=== PATIENT | female | born 1945 | race Caucasian/White ===

== ENCOUNTER 2019-07-17 16:31 | Outpatient (CLI) | payer MEDICARE, OTHER, SELFPAY ==
--- NOTE | ~2019-07-17 | CT_ITS ---
EXAMINATION:CT chest wo con DATE: 07/17/2019 17:00 INDICATION: Pulmonary nodule. TECHNIQUE: Computed tomography (CT) of the chest was performed without intravenous contrast. Automate d exposure control and iterative reconstruction technique were employed. The dose-length product (DLP ) was 61.46 mGy-cm. COMPARISON: Chest CT 02/19/2019, 02/17/2018 FINDINGS: There is moderate emphysema. There is chronic collapse of right middle lobe. There is mild atelectasis in the lower lobes. There is a 3 mm nodule in right upper lobe, likely benign. There is a 4 mm nodule in left upper lobe, decreased from 7 mm on 02/20/2019, likely benign. Calcified right lalit g nodules and calcified right hilar lymph nodes are consistent with old granulomatous disease. No ple ural effusion. The heart size is normal. There are coronary artery calcifications. No pericardial eff usion. There is ectasia of ascending aorta measuring 4.6 cm without change. The central pulmonary art eries are enlarged, consistent with pulmonary arterial hypertension. There are old healed rib fractur es bilaterally. IMPRESSION: 1. Lung-RADS category 2: Benign appearance or behavior. Continue annual screening with noncontrast lo w-dose chest CT in 12 months. Reviewed, dictated and finalized at location A. OLE FLEXER IMPRESSION: 1. Lung-RADS category 2: Benign appearance or behavior. Continue annual screeni ng with noncontrast low-dose chest CT in 12 months.
== END 2019-07-17 16:32 | disposition home or self-care (01) ==
PROVIDERS: PCP Physician Assistant; Visit Provider Nurse Practitioner Family
DX: R91.1 Solitary pulmonary nodule (principal)
CPT/HCPCS: 71250

== ENCOUNTER 2020-08-28 14:03 | Emergency (ER) | payer MEDICARE, OTHER, SELFPAY ==
--- NOTE | ~2020-08-28 | XR_ITS ---
EXAMINATION: XR chest 2V DATE: 08/28/2020 14:34 INDICATION: Palpitations with irregular heartbeat TECHNIQUE: frontal and lateral views of the chest were obtained. COMPARISON: Chest CT dated 07/17/2019 and chest radiograph dated 08/05/2017 FINDINGS: Mild hyperexpansion of lungs with increased retrosternal clear space consistent with emphysema better appreciated on prior CT . Chronic airspace opacity in the right mid to lower lung zone with bandlike appearance on lateral projection secondary to right middle lobe collapse which is also better apprec iated on prior CT. There is corresponding relative volume loss the right hemithorax with rightward sh ift of the mediastinum and enlarged cardiac silhouette. No other airspace opacities, pulmonary edema, pleural effusion or pneumothorax. Thoracic kyphosis with mild anterior wedging of a few lower thorac ic vertebral bodies. Moderate thoracic spondylosis. Old bilateral rib fractures. IMPRESSION: 1. Emphysema. 2. Chronic right middle lobe collapse. 3. Cardiomegaly. Reviewed, dictated and finalized at location B.
[2020-08-28 14:10] VITALS: BP 171/80; PULSE 98; RESP 21; TEMP 35.9; O2SAT 95
[2020-08-28 14:30] LABS: Basophils Percent Auto 0.3 % (0.2-1.2); Eosinophils Absolute Auto 0.1 K/mm3 (0-0.3); Eosinophils Percent Auto 0.6 % (0-4.4); Hematocrit 44.2 % (37.0-47.0); Hemoglobin 14.8 g/dL (12.0-15.0); Immature Granulocyte Absolute 0.03 K/mm3 (0.00-0.031); Immature Granulocyte Percent A 0.3 % (0-0.5); Lymphocytes Absolute Auto 1.79 K/mm3 (0.9-3.2); Lymphocytes Percent Auto 20.4 % (18.3-44.2); Mean Corpuscular HGB Conc 33.5 g/dl (32-36); Mean Corpuscular Hemoglobin 32.8 pg (26-34); Monocytes Absolute Auto 0.7 K/mm3 (0.1-0.6); Monocytes Percent Auto 7.5 % (2.6-8.5); Neutrophils Absolute Auto 6.2 K/mm3 (1.3-6.7); Neutrophils Percent Auto 70.9 % (45.5-73.1); Platelet Count Result 283 k/mm3 (150-375); Red Blood Count 4.51 M/mm3 (4.2-5.4); Red Cell Distribution Width 13.2 % (11.5-14.5); White Blood Count 8.8 K/mm3 (4.5-10.0)
[2020-08-28 14:39] LABS: Prothrombin Time 13.3 Seconds (11.1-14.7)
[2020-08-28 14:40] LABS: Partial Thromboplastin Time 29.6 SECONDS (22.3-36.8)
[2020-08-28 14:47] LABS: Anion Gap 7 mmol/L (8-16); Blood Urea Nitrogen 12 mg/dL (7-17); Calcium 9.9 mg/dL (8.4-10.2); Carbon Dioxide 32 mmol/L (22-30); Chloride 95 mmol/L (98-107); Estimated CRCL calculation 46 ml/min; Estimated Glomerular Filt Rate > 60; Glucose 118 mg/dL (65-105); Magnesium 1.3 mg/dL (1.6-2.3); Potassium 3.5 mmol/L (3.4-5.0); Sodium 134 mmol/L (137-145)
[2020-08-28 15:19] VITALS: BP 168/84; PULSE 96; RESP 32; O2SAT 95
--- NOTE | 2020-08-28 15:25 | ED.ARRPALP ---
HPI - Arrhythmia/Palpitations General Chief Complaint: Arrhythmia/Palpitations Stated Complaint: Sent from Dr Rosario office Time Seen by Provider: 08/28/20 14:03 History of Present Illness HPI narrative: Patient is a 75-year-old female who presents the ER with an abnormal heart rhythm from her primary care physician's office. Patient has history of PACs but no history of atrial fibrillation which she was found to be in today. Patient has no symptoms of racing of the heart or skipping of heartbeat. She has no chest pain or chest pressure or shortness of breath. She does have some chronic shortness of breath from her COPD but that remains unchanged. She is not oxygen dependent. She is not had any lower extremity edema. Related Data Home Medications Medication Instructions Recorded Confirmed albuterol sulfate 90 mcg/actuation 1 inhalation INHALATION Q4H 07/12/19 07/16/19 aerosol inhaler calcium carb-vit D3-minerals 600 tablet PO 07/12/19 07/16/19 mg calcium-200 unit tablet calcium carbonate 200 mg calcium 200 mg PO BID 07/12/19 07/16/19 (500 mg) chewable tablet dorzolamide 2 % eye drops 1 drop EACH EYE TID 07/12/19 07/16/19 ergocalciferol (vitamin D2) 1,250 1,250 mcg PO WEEKLY 07/12/19 07/16/19 mcg (50,000 unit) capsule loratadine 10 mg capsule 10 mg PO DAILY 07/12/19 07/16/19 lisinopril 20 1 tablet PO DAILY 07/16/19 07/16/19 mg-hydrochlorothiazide 25 mg tablet C,E,zinc,copper [id number] cap PO 08/28/20 [Ocuvite Adult 50 Plus] citalopram mg 08/28/20 magnesium 15 mg PO TID 08/28/20 Allergies Allergy/AdvReac Type Severity Reaction Status Date / Time codeine Allergy Unknown Vomiting Verified 08/28/20 14:58 dorzolamide Allergy Unknown Shortness Verified 08/28/20 14:58 of breat losartan Allergy Unknown unk Verified 08/28/20 14:58 timolol Allergy Unknown Shortness Verified 08/28/20 14:58 of breat Review of Systems Review of Systems: All systems reviewed & are unremarkable except as noted in HPI and below Constitutional: Constitutional: Denies chills, Denies fever(s) and Denies weakness ENT: Denies nasal congestion and Denies sore throat Cardiovascular: Cardiovascular: Denies chest pain, Denies rapid heart rate and Denies radiating jaw, neck or arm pain Respiratory: Respiratory: Denies cough, Denies dyspnea and Denies wheezing Neurologic: Denies dizziness and Denies syncope PMFSH Past Medical History Medical History (Updated 08/28/20 @ 16:16 by Dheeraj Nino MD) Asthma Chronic obstructive pulmonary disease GERD (gastroesophageal reflux disease) Hypertension Surgical History Surgical History (Updated 08/28/20 @ 16:13 by Dheeraj Nino MD) History of hysterectomy Family History Family History (Updated 04/19/18 @ 11:38 by DOCTOR UNKNOWN) Mother Family history of malignant neoplasm of breast in first degree relative Other Family history of arthritis Family history of malignant neoplasm of thyroid Social History Social History (Updated 07/16/19 @ 13:22 by Minal Guerrier) Smoking status: Light tobacco smoker Exam Narrative: Exam Narrative: GENERAL: Well-appearing, well-nourished, and in no acute distress. HEAD: Normocephalic, atraumatic. CHEST: Clear to auscultation. No respiratory distress. HEART: Irregular regular rate and rhythm normal peripheral pulses. ABDOMEN: Soft, nontender, nondistended. EXTREMITIES: Normal range of motion. No edema. SKIN: Warm, dry, no rash. NEURO: Alert and oriented x3. PSYCH: Normal mood and affect. Course Reevaluation(s) Reevaluation #1: Discussed case with Dr. Perales. Recommends oral metoprolol 50 mg daily and and Eliquis 5 mg twice a day. Discussed with pharmacist given patient's timolol allergy and after discussion with patient it is felt that it is safe to give metoprolol. Patient reports she is unsure why that is marked as an allergy and that her pharmacist thought she might have been crazy f
[2020-08-28 15:34] VITALS: PULSE 106
[2020-08-28] MEDS: APIXABAN 5 MG TABLET PO (15:34)
[2020-08-28] MEDS: METOPROLOL SUCCINATE EXT REL 50 MG TABCR PO (15:34)
[2020-08-28 16:10] VITALS: PULSE 74; RESP 23; O2SAT 93
--- NOTE | 2020-08-28 16:19 | ECG_ITS ---
Measurements Intervals [place] Rate: 105 P: HI: 0 QRS: 62 QRSD: 93 T: 77 QT: 327 QTc: 433 Interpretive Statements SINUS RHYTHM ATRIAL TRIPLETS, AND ATRIAL AND VENTRICULAR PREMATURE COMPLEXES MINIMAL Q WAVES- ANTEROLAT/INF LEADS BASELINE ARTIFACT- I, II, III ABNORMAL ECG Electronically Signed On 08-28-2020 16:31:57 CDT by Edwin Perales D.O.
[2020-08-28 16:42] VITALS: BP 168/84; PULSE 88; RESP 24; O2SAT 100
== END 2020-08-28 16:43 | disposition home or self-care (01) ==
PROVIDERS: Emergency Provider Emergency Medicine; PCP Physician Assistant
DX: I48.91 Unspecified atrial fibrillation (principal); K21.9 Gastro-esophageal reflux disease without esophagitis; I10 Essential (primary) hypertension; J43.9 Emphysema, unspecified; I51.7 Cardiomegaly; J98.19 Other pulmonary collapse; I49.3 Ventricular premature depolarization; I49.1 Atrial premature depolarization; R94.31 Abnormal electrocardiogram [ECG] [EKG]
CPT/HCPCS: 36415; 71046; 80048; 83735; 85025; 85610; 85730; 93005; 99283; A9270

== ENCOUNTER 2020-10-07 12:21 | Outpatient (CLI) | payer MEDICARE, OTHER, SELFPAY ==
--- NOTE | ~2020-10-07 | XR_ITS ---
EXAMINATION: XR lumbar spine 2-3V DATE: 10/07/2020 12:51 INDICATION: Generalized low back pain TECHNIQUE: Anteroposterior and lateral views of the lumbar spine, and cone-down lateral view of the l umbosacral junction were obtained. COMPARISON: Lumbar spine MR dated 06/26/2019 FINDINGS: 30 degree dextroscoliosis measured between T12 and L3. 3-4 mm retrolisthesis L1 on L2, L2 on L3 and L 3 on L4. 2 mm anterolisthesis L4 on L5. Vertebral body heights are normal. Severe disc height loss wi th Modic type III sclerotic endplate changes at L1-L2. Moderate disc height loss at T10-T11 and T11-T 12. Mild disc height loss at T12-L1. Moderate to severe lumbar facet osteoarthritis with lower lumbar predominance. Mild bilateral sacroiliac osteoarthritis. Atherosclerotic calcifications at the abdomi nal aorta. IMPRESSION: 1. 30 degrees thoracolumbar dextroscoliosis with severe spondylosis at L1-L2 and moderate spondylosis in the remainder of the lumbar and lower thoracic spine.. Reviewed, dictated and finalized at location A. IMPRESSION: 1. 30 degrees thoracolumbar dextroscoliosis with severe spondylosis at L1-L2 an d moderate spondylosis in the remainder of the lumbar and lower thoracic spine. .
== END 2020-10-07 12:22 | disposition home or self-care (01) ==
PROVIDERS: PCP Physician Assistant; Visit Provider Physician Assistant
DX: M47.815 Spondylosis without myelopathy or radiculopathy, thoracolumbar region (principal); M41.9 Scoliosis, unspecified
CPT/HCPCS: 72100

== ENCOUNTER 2020-10-21 17:26 | Emergency (ER) | payer MEDICARE, OTHER, SELFPAY ==
--- NOTE | ~2020-10-21 | XR_ITS ---
EXAMINATION: XR chest 2V EXAM DATE: 10/21/2020 18:22 INDICATION: Shortness of breath. TECHNIQUE: Frontal and lateral projections of the chest obtained and reviewed. Comparison is made to prior examination from 08/28/2020. FINDINGS: Segmental right middle lobe atelectasis again noted. The lungs are otherwise clear. Some ch ronic hyperinflation. There are no pleural effusions. The cardiomediastinal silhouette is within nor mal limits. There is no pneumothorax suspected. The bones and soft tissues are unremarkable. IMPRESSION: Chronic right middle lobe atelectasis. Reviewed, dictated and finalized at location A.
--- NOTE | 2020-10-21 17:36 | ED.SOB ---
HPI - SOB/Dyspnea General Chief Complaint: Shortness of Breath/Dyspnea Stated Complaint: Shortness of breath Time Seen by Provider: 10/21/20 17:48 Source: patient and RN notes reviewed Mode of arrival: ambulatory Limitations: no limitations History of Present Illness HPI Narrative: 75-year-old female presents the concern for shortness of breath. Reports 3 to 4-day history of increased shortness of breath, bilateral lower leg swelling that has worsened. Reports normally she has bilateral lower leg swelling, however it has increased. Reports approximately 5 days ago she was taken off of her diuretics by her environmental specialist. She denies rhinorrhea, nasal congestion, sore throat, fever, body aches, chills, sweats. Reports shortness of breath at rest increases with activity. MD elicited complaint: shortness of breath Related Data Home Medications Medication Instructions Recorded Confirmed albuterol sulfate 90 mcg/actuation 1 inhalation INHALATION Q4H 07/12/19 10/16/20 aerosol inhaler calcium carb-vit D3-minerals 600 tablet PO 07/12/19 10/16/20 mg calcium-200 unit tablet dorzolamide 2 % eye drops 1 drop EACH EYE TID 07/12/19 10/16/20 ergocalciferol (vitamin D2) 1,250 1,250 mcg PO WEEKLY 07/12/19 10/16/20 mcg (50,000 unit) capsule C,E,zinc,copper [id number] cap PO 08/28/20 10/16/20 [Ocuvite Adult 50 Plus] magnesium carbonate 250 mg capsule mg PO .2-3 daily cap 10/16/20 10/16/20 tiotropium bromide 1.25 2 puff INHALATION DAILY 10/16/20 10/16/20 mcg/actuation mist for inhalation alprazolam 10/21/20 citalopram mg 10/21/20 fluticasone furoate-vilanterol INHALATION 10/21/20 [Breo Ellipta] lisinopril-hydrochlorothiazide tablet 10/21/20 Allergies Allergy/AdvReac Type Severity Reaction Status Date / Time codeine Allergy Unknown Vomiting Verified 10/16/20 14:33 dorzolamide Allergy Unknown Shortness Verified 10/16/20 14:33 of breat losartan Allergy Unknown unk Verified 10/16/20 14:33 timolol Allergy Unknown Shortness Verified 10/16/20 14:33 of bre Review of Systems Review of Systems: Narrative: CONSTITUTIONAL: Denies malaise, chills, sweats, or fever. EYES: Denies visual changes, redness, or discharge. ENT: Denies rhinorrhea, congestion, sinus pain, otalgia or sore throat. CARDIOVASCULAR: Denies chest pain, palpitations. Reports worsening bilateral lower leg edema. RESPIRATORY: Denies cough. Reports dyspnea. GASTROINTESTINAL: Denies abdominal pain, nausea, vomiting, diarrhea SKIN: Denies rash or itching. NEUROLOGIC: Denies headache. All systems reviewed & are unremarkable except as noted in HPI and below PMFSH Past Medical History Medical History Asthma Chronic obstructive pulmonary disease GERD (gastroesophageal reflux disease) Hypertension Surgical History Surgical History History of hysterectomy Family History Family History Mother Family history of malignant neoplasm of breast in first degree relative Other Family history of arthritis Family history of malignant neoplasm of thyroid Social History Social History Smoking status: Current every day smoker Comments At time of signature, agree with nursing past medical, surgical, social and family history. There is no relevant family history pertinent to the presenting complaint Exam Narrative: Exam Narrative: GENERAL: Well-appearing, well-nourished, and in no acute distress. HEAD: Normocephalic EYES: PERRLA, conjunctivae clear ENT: Nares clear. Mucous membranes moist. NECK: Supple. No lymphadenopathy CHEST: Clear to auscultation, breath sounds equal, diminished lower lobes. No wheezing, rhonchi, rales, or stridor. Tachypneic with respiratory effort, not able to speak
[2020-10-21 17:41] VITALS: BP 152/77; PULSE 74; RESP 24; TEMP 36.7; O2SAT 91
--- NOTE | 2020-10-21 17:56 | ECG_ITS ---
Measurements Intervals [place] Rate: 76 P: 72 VA: 164 QRS: 69 QRSD: 98 T: 74 QT: 381 QTc: 430 Interpretive Statements SINUS RHYTHM ATRIAL PREMATURE COMPLEXES BASELINE ARTIFACT- I, II, III, AVR, AVL, AVF, V1-V6 BORDERLINE ECG Electronically Signed On 10-21-2020 18:13:31 CDT by Edwin Perales D.O.
--- NOTE | 2020-10-21 18:19 | PC.NURSE ---
in xray. daughter and pt aware of need for further evaluation by higher level of care.
== END 2020-10-21 18:37 | disposition short-term general hospital (02) ==
PROVIDERS: Emergency Provider Nurse Practitioner; PCP Family Medicine
DX: R06.02 Shortness of breath (principal); J44.9 Chronic obstructive pulmonary disease, unspecified; K21.9 Gastro-esophageal reflux disease without esophagitis; I10 Essential (primary) hypertension; F17.200 Nicotine dependence, unspecified, uncomplicated
CPT/HCPCS: 71046; 93005; 99213; G0463

== ENCOUNTER 2020-10-21 19:01 | Inpatient (IN) | payer MEDICARE, OTHER, SELFPAY ==
--- NOTE | ~2020-10-21 | NM_ITS ---
EXAMINATION: NM gricel stress w perfusion DATE: 10/23/2020 12:05 INDICATION: Dyspnea on exertion. TECHNIQUE: Rest images were obtained following intravenous administration of 10.8 mCi Tc99m tetrofosm in (Myoview). The patient was infused intravenously with Lexiscan (regadenoson). Then, 33 mCi Tc99m t etrofosmin (Myoview) was administered intravenously, and stress images were obtained. Data was recons tructed into short axis and horizontal and vertical long axis SPECT images. Gated SPECT images were a lso obtained. COMPARISON: Chest CT 07/17/2019 FINDINGS: There is a small, mild, fixed perfusion defect involving apical septal segment of left vent ricle, consistent with infarct. No reversible component to suggest ischemia. There is no segmental wa ll motion abnormality. Left ventricular ejection fraction measures 56%. IMPRESSION: 1. 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 2. Normal left ventricular ejection fraction measuring 56%. Reviewed, dictated and finalized at location B. IMPRESSION: 1. 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 2. Normal left ventricular ejection fraction measuring 56%.
[2020-10-21 19:13] VITALS: BP 141/66; PULSE 55; RESP 20; O2SAT 93
--- NOTE | 2020-10-21 19:20 | ECG_ITS ---
Measurements Intervals [place] Rate: 72 P: -1 RI: 164 QRS: 49 QRSD: 102 T: 70 QT: 412 QTc: 453 Interpretive Statements SINUS RHYTHM ATRIAL PREMATURE COMPLEXES BASELINE ARTIFACT- I, II, AVR BORDERLINE ECG Electronically Signed On 10-22-2020 6:47:09 CDT by Edwin Perales D.O.
[2020-10-21 19:36] LABS: Basophils Percent Auto 0.2 % (0.2-1.2); Eosinophils Absolute Auto 0.1 K/mm3 (0-0.3); Eosinophils Percent Auto 1.4 % (0-4.4); Hematocrit 42.7 % (37.0-47.0); Immature Granulocyte Absolute 0.02 K/mm3 (0.00-0.031); Immature Granulocyte Percent A 0.2 % (0-0.5); Lymphocytes Absolute Auto 1.77 K/mm3 (0.9-3.2); Lymphocytes Percent Auto 20.8 % (18.3-44.2); Mean Corpuscular HGB Conc 32.8 g/dl (32-36); Mean Corpuscular Hemoglobin 32.9 pg (26-34); Mean Corpuscular Volume 100.5 fl (80-100); Mean Platelet Volume 9.2 fl (7.4-10.4); Monocytes Absolute Auto 0.6 K/mm3 (0.1-0.6); Monocytes Percent Auto 6.8 % (2.6-8.5); Neutrophils Percent Auto 70.6 % (45.5-73.1); Platelet Count Result 273 k/mm3 (150-375); Red Blood Count 4.25 M/mm3 (4.2-5.4); Red Cell Distribution Width 13.1 % (11.5-14.5); White Blood Count 8.5 K/mm3 (4.5-10.0)
[2020-10-21 19:46] LABS: Anion Gap 3 mmol/L (8-16); Blood Urea Nitrogen 12 mg/dL (7-17); Calcium 9.1 mg/dL (8.4-10.2); Carbon Dioxide 32 mmol/L (22-30); Chloride 96 mmol/L (98-107); Estimated CRCL calculation 36 ml/min; Estimated Glomerular Filt Rate > 60; Glucose 100 mg/dL (65-105); Potassium 3.9 mmol/L (3.4-5.0); Sodium 131 mmol/L (137-145)
[2020-10-21] MEDS: ALBUTEROL SULFATE NEB 2.5 MG/0.5 ML INH 5 MG INHALATION (22:00)
[2020-10-21] MEDS: IPRATROPIUM BR 0.02% INH SOLN 0.5 MG/2.5 ML VIAL INHALATION (22:00)
[2020-10-21 22:04] VITALS: PULSE 59; RESP 16
[2020-10-21 22:12] VITALS: PULSE 73; RESP 16
[2020-10-21 22:14] LABS: Magnesium 1.9 mg/dL (1.6-2.3)
[2020-10-21 22:27] LABS: NT Pro B Type Natriuretic Pept 2740 pg/mL (5-100); Troponin I 0.015 ng/mL (0.000-0.034)
[2020-10-21 22:52] VITALS: BP 138/89; PULSE 78; RESP 20; O2SAT 95
[2020-10-21] MEDS: FUROSEMIDE INJ 40 MG/4 ML VIAL IV PUSH (22:52)
--- NOTE | 2020-10-21 23:18 | ED.GENADULT ---
HPI - General Adult General Chief complaint: Shortness of Breath/Dyspnea Stated complaint: sob Time Seen by Provider: 10/21/20 20:59 History of Present Illness HPI narrative: Patient is a 75-year-old female who presents the emergency department with complaint of shortness of breath. Patient reports that she has been on lisinopril hydrochlorothiazide and her mold loft worker took her off of the hydrochlorothiazide component the patient states that over the last 4 days she has been having increasing shortness of breath worse with exertion to the point now that she cannot walk across the room without getting very short of breath. Patient reports she has history of COPD but states this feels different reports also that she has had a increasing peripheral edema. Patient denies fever denies cough. Patient was seen at urgent care and sent to the emergency department for further evaluation. Related Data Home Medications Medication Instructions Recorded Confirmed albuterol sulfate 90 mcg/actuation 1 inhalation INHALATION Q4H 07/12/19 10/16/20 aerosol inhaler calcium carb-vit D3-minerals 600 tablet PO 07/12/19 10/16/20 mg calcium-200 unit tablet dorzolamide 2 % eye drops 1 drop EACH EYE TID 07/12/19 10/16/20 ergocalciferol (vitamin D2) 1,250 1,250 mcg PO WEEKLY 07/12/19 10/16/20 mcg (50,000 unit) capsule C,E,zinc,copper [id number] cap PO 08/28/20 10/16/20 [Ocuvite Adult 50 Plus] magnesium carbonate 250 mg capsule mg PO .2-3 daily cap 10/16/20 10/16/20 tiotropium bromide 1.25 2 puff INHALATION DAILY 10/16/20 10/16/20 mcg/actuation mist for inhalation alprazolam 10/21/20 citalopram mg 10/21/20 fluticasone furoate-vilanterol INHALATION 10/21/20 [Breo Ellipta] lisinopril-hydrochlorothiazide tablet 10/21/20 Allergies Allergy/AdvReac Type Severity Reaction Status Date / Time codeine Allergy Unknown Vomiting Verified 10/16/20 14:33 dorzolamide Allergy Unknown Shortness Verified 10/16/20 14:33 of breat losartan Allergy Unknown unk Verified 10/16/20 14:33 timolol Allergy Unknown Shortness Verified 10/16/20 14:33 of breat Review of Systems Review of Systems: Narrative: A 10 system review of systems was completed on the patient and is negative except for what is stated in the HPI. Nursing and ancillary documentation was reviewed. PMFSH Past Medical History Medical History Asthma Chronic obstructive pulmonary disease GERD (gastroesophageal reflux disease) Hypertension Surgical History Surgical History History of hysterectomy Family History Family History Mother Family history of malignant neoplasm of breast in first degree relative Other Family history of arthritis Family history of malignant neoplasm of thyroid Social History Social History Smoking status: Current every day smoker Exam Narrative: Exam Narrative: GENERAL: Well-appearing, well-nourished, and in no acute distress. HEAD: Normocephalic, atraumatic. EYES: PERRLA and EOMI. ENT: Nares clear, no rhinorrhea or epistaxis. Mucous membranes moist. NECK: Supple. CHEST: Clear to auscultation. No respiratory distress. HEART: Regular rate and rhythm. No murmur heard. Normal peripheral pulses. ABDOMEN: Soft, nontender, nondistended, normal active bowel sounds. EXTREMITIES: Normal range of motion. +1 edema. SKIN: Warm, dry, no rash. NEURO: No focal deficits. Alert and oriented x3. PSYCH: Normal mood and affect. Course Course Emergency Course: Patient was given an IV dose of Lasix in the emergency department. Patient is still dyspneic with walking to the bathroom. Patient has elevated BNP. Case will be discussed with the hospitalist for admission for observation. Vital Sig
[2020-10-22] VITALS (15 sets, daily range): BP systolic 115–137; BP diastolic 52–68; PULSE 64–76; RESP 16–20; TEMP 36–36.6; O2SAT 92–96; BMI 26.1
--- NOTE | 2020-10-22 | ECHO_ITS ---
Patient Info Name: Raven Sharma Age: 75 years : 1945 Gender: Female Ht: 62 in Wt: 142 lbs BSA: 1.69 m2 HR: 75 bpm BP: 133 / 59 mmHg Technical Quality: Good Exam Date: 10/22/2020 10:06 AM Exam Location: [facility] Pulmonary Exam Room: 258 Patient Status: Inpatient Admit Date: 10/21/2020 Staff Ordering Physician: Hazel Lemus MD Urban Designer: OLLIE Attending Provider: Hazel Lemus MD Referring Physician: Allan CABAN; Exam Type: CA echo doppler color flow Study Info Indications - sob Complete two-dimensional, color flow and Doppler transthoracic echocardiogram is performed with agitated saline. Summary 1. Left ventricular chamber dimension is mildly enlarged. 2. Left ventricular systolic function is mildly reduced, estimated at 45-50%. 3. The left ventricular diastolic function is grade I diastolic dysfunction. 4. E/e' 10 is mildly elevated. 5. Left atrial chamber dimension is moderately enlarged. 6. Agitated saline injection opacified right cardiac chambers and with valsalva there were a few bubbles shunted to left cardiac chambers suggesting small patent foramen ovale. 7. There is mild aortic valve sclerosis. 8. There is mild aortic valve regurgitation. 9. There is mild mitral valve regurgitation. 10. Mild pulmonary hypertension, estimated pulmonary arterial systolic pressure is 43 mmHg. 11. There is mild pulmonic regurgitation. Left Ventricle E/e' 10 is mildly elevated. Left ventricular chamber dimension is mildly enlarged. Left ventricular systolic function is mildly reduced, estimated at 45-50%. The left ventricular diastolic function is grade I diastolic dysfunction. Right Ventricle Right ventricular chamber dimension is normal. Right ventricular systolic function is normal. Left Atria Left atrial chamber dimension is moderately enlarged. Right Atria Right atrial chamber dimension is normal. Atrial Septum Agitated saline injection opacified right cardiac chambers and with valsalva there were a few bubbles shunted to left cardiac chambers suggesting small patent foramen ovale. Suspected patent foramen ovale visualized by agitated saline imaging. Aortic Valve The aortic valve is trileaflet. There is mild aortic valve sclerosis. There is no aortic valve stenosis. There is mild aortic valve regurgitation. Pulmonic Valve There is mild pulmonic regurgitation. Mitral Valve There is no mitral valve stenosis. There is mild mitral valve regurgitation. Tricuspid Valve There is no tricuspid valve regurgitation. Mild pulmonary hypertension, estimated pulmonary arterial systolic pressure is 43 mmHg. Pericardium/Pleural There is no pericardial effusion. Inferior Vena Cava Normal inferior vena cava with >50% collapse upon inspiration consistent with normal right atrial pressure, 5 mmHg. Aorta The aortic root size at the sinus of Valsalva is normal. Left Ventricular Outflow Tract Name Value Normal LVOT 2D LVOT Diameter 2.0 cm LVOT Doppler LVOT Peak Gradient 4 mmHg LVOT Mean Gradient 3 mmHg
--- NOTE | 2020-10-22 00:39 | ADMGEN ---
This patient, Raven Sharma, was admitted to Medical Room 258-. Patient/family oriented to hospital policies and general routines including ID bracelet, bed and alarms, visiting hours, pain management, procedures, bathroom and other care routines, personal items, smoking policy, room service/diet, and visiting hours. Information on how to activate the Rapid Response Team has been discussed. Patient/Family are encouraged to report perceived risks to care and to ask questions if they do not understand what they are told or what they should do.
--- NOTE | 2020-10-22 01:31 | PM.IMHP ---
H&P: HPI History of Present Illness Date/Time: 10/22/20 01:31 Chief Complaint: SHORTNESS OF BREATH Narrative: THIS IS A 75-YEAR-OLD FEMALE WITH PAST MEDICAL HISTORY SIGNIFICANT FOR COPD CHRONIC RIGHT MIDDLE LOBE COLLAPSE HYPERTENSION, SUPRAVENTRICULAR TACHYCARDIA. PATIENT NOTICED WORSENING SHORTNESS OF BREATH FOR THE LAST 3-4 DAYS SHE NOTED IS STARTED SHORTLY AFTER HER HYDROCHLOROTHIAZIDE WAS STOPPED. PATIENT DENIES ANY COUGH ANY SPUTUM PRODUCTION NO CHILLS NO FEVERS NO RIGORS SHE NOTICED ALSO SOME LEG SWELLING PATIENT HAS LEFT EAR HEARING LOSS AND STATES THAT WHEN LAYING FLAT IN THE BED GETS DIZZY SO UNABLE TO TELL IF HAS ORTHOPNEA OR NOT PATIENT DENIES ANY CHEST PAIN OR PALPITATIONS. NO NAUSEA VOMITING OR DIARRHEA. NO DIZZINESS UPON STANDING NO NEAR-SYNCOPE OR SYNCOPE. PRELIMINARY WORKUP WAS SIGNIFICANT FOR SLIGHTLY ELEVATED BNP. CHEMISTRY PANEL SIGNIFICANT FOR SLIGHTLY LOW SODIUM CHLORIDE AND SLIGHTLY ELEVATED BICARB. A CHEST X-RAY DID NOT SHOW ANY INFILTRATES BUT HYPERINFLATION. Review of Systems Review of Systems: Narrative: PATIENT PRESENTED TO THE EMERGENCY ROOM DUE TO WORSENING SHORTNESS OF BREATH AND BILATERAL LOWER EXTREMITY SWELLING FOR THE LAST 3-4 DAYS Constitutional: Constitutional: Denies chills, Denies fatigue, Denies fever(s) and Denies weakness Eyes: Eyes: Denies blurry vision and Denies diplopia ENT: Reports hearing loss Comments: PATIENT HAS HEARING LOSS SINCE SHE WAS 22 YEARS OLD Cardiovascular: Cardiovascular: Denies rapid heart rate, Reports pedal edema, Denies lightheadedness, Denies radiating jaw, neck or arm pain and Reports dyspnea Respiratory: Respiratory: Denies cough and Denies wheezing Gastrointestinal: Gastrointestinal: Denies abdominal pain, Denies constipation, Denies GI cramping and Denies dysphagia Genitourinary: Genitourinary: Denies nocturia and Denies dysuria Musculoskeletal: Musculoskeletal: Denies deformity, Denies arthralgias, Denies joint swelling, Denies limited range of motion and Denies muscle weakness Integumentary/Breasts: Skin/Breast: Denies rash Neurologic: Denies confusion, Denies dizziness, Denies headache(s), Denies lack of coordination and Denies focal weakness Psychiatric: Psychiatric: Denies no additional psychiatric complaints Endocrine: Endocrine: Denies change in body appearance, Denies cold intolerance, Denies deepening of the voice and Denies heat intolerance Hematologic/Lymphatic: Hematologic/Lymphatic: Denies no additional hematologic/lymphatic complaints Allergic/Immunologic: Allergic/Immunologic: Denies no additional allergic/immunologic complaints PMFSH Past Medical History Medical History Asthma Chronic obstructive pulmonary disease GERD (gastroesophageal reflux disease) Hypertension Surgical History Surgical History History of hysterectomy Family History Family History Mother Family history of malignant neoplasm of breast in first degree relative Other Family history of arthritis Family history of malignant neoplasm of thyroid Social History Social History Smoking packs per day: 1 Smoking cigarettes per day: 20.0 Years smoked: 50 Smoking pack-years: 50.00 Smoking status: Current every day smoker Tobacco type: cigarettes Second hand tobacco smoke exposure: Yes Alcohol intake: never Substance use: never Substance use type: does not use Spiritual care concerns: No Meds Home Medications and Allergies Home Medications Medication Instructions Recorded Confirmed Type albuterol sulfate 90 mcg/actuation 1 inhalation INHALATION Q4H 07/12/19 10/22/20 History aerosol inhaler calcium carb-vit D3-minerals 600 1 tablet PO DAILY 07/12/19 10/22/20 History mg calcium-2
[2020-10-22] MEDS: ALBUTEROL SULFATE (*SP) AEROSOL 1 PUFF INHALATION ×4 (04:13→17:26)
[2020-10-22] MEDS: OPTI-GEN TAB 1 TABLET PO (08:30)
[2020-10-22] MEDS: FUROSEMIDE INJ 40 MG/4 ML VIAL IV PUSH (08:31)
[2020-10-22] MEDS: AMIODARONE HCL 200 MG TABLET PO ×2 (08:31→17:24)
[2020-10-22] MEDS: lisinopriL 20 MG TABLET PO (08:31)
--- NOTE | 2020-10-22 14:37 | PM.IMPN ---
Progress Note: A&P Assessment and Plan (1) Acute exacerbation of CHF (congestive heart failure): Qualifiers: Heart failure type: unspecified Qualified Code(s): I50.9 - Heart failure, unspecified Code(s): I50.9 - Heart failure, unspecified Status: Acute Assessment and Plan: Presented with COTTO and elevated BNP. Echo reviewed which showed EF 40-45% with grade I diastolic dysfunction. She appears euvolemic at this time. Appreciate cardiology consultation Continue diuresis with Lasix Monitor intake and output. Weigh daily. Heart healthy diet. (2) PVT (paroxysmal ventricular tachycardia): Code(s): I47.2 - Ventricular tachycardia Status: Acute Assessment and Plan: Rate is controlled at this time. Telemetry reviewed. Continue amiodarone and diltiazem Plan for lexiscan stress test tomorrow morning Appreciate cardiology consultation (3) PAT (paroxysmal atrial tachycardia): Code(s): I47.1 - Supraventricular tachycardia Status: Acute Assessment and Plan: As above. (4) Chronic obstructive pulmonary disease: Qualifiers: COPD type: unspecified COPD Qualified Code(s): J44.9 - Chronic obstructive pulmonary disease, unspecified Code(s): J44.9 - Chronic obstructive pulmonary disease, unspecified Status: Acute Assessment and Plan: Not in acute exacerbation. She is maintaining adequate oxygen saturations on room air. Continue spiriva (5) Tobacco abuse: Code(s): Z72.0 - Tobacco use Status: Acute Assessment and Plan: She smokes approximately 7 cigarettes per day. Declines nicotine patch at this time. Continue to educate on smoking cessation. Subjective Date/time seen: 10/22/20 14:37 Interval history: Date of service: 10/22/2020 Raven Sharma is a 75-year-old female with a history of COPD, asthma, GERD, and hypertension who is seen in follow up for suspected CHF exacerbation. She is feeling well today. Her only complaint at this time is dyspnea with exertion. At rest she denies any shortness of breath. She denies orthopnea or PND. She has been ambulating with assistance and is not having any difficulty. Denies dizziness or lightheadedness. She notes that her lower extremity edema is significantly improved. She denies nausea, vomiting, fever, chills. Her appetite has been good. She reports frequent urination secondary to diuretics but denies dysuria, hematuria. She had a bowel movement this morning. Review of Systems Review of Systems: All systems reviewed & are unremarkable except as noted in HPI and below Exam Narrative: Exam Narrative: Ms. Sharma is a well-nourished, well-appearing 75-year-old female who is lying supine in bed. She appears comfortable and is in NARD. Neuro: awake, alert and oriented x4, speech clear, no focal neuro deficits noted HEENMT: normocephalic, atraumatic, EOMI, sclerae anicteric, moist oral mucosa, tongue midline, nares patent Neck: supple, no lymphadenopathy Respiratory: Diminished breath sounds bilaterally without crackles, rhonchi, or wheezes, nonlabored breathing Cardio: regular rate, regular rhythm with S1-S2 Abdomen: nondistended, normoactive bowel sounds, soft, nontender to palpation, no rigidity or guarding Extremities: Scant pedal edema, no erythema, cyanosis, clubbing, or tenderness to palpation, DP pulses 2+ bilaterally Skin: no rashes or lesions, warm and dry Psych: appropriate mood and affect, judgment and insight intact Objective Data Vital Signs Vital Signs: Vital Signs - 24 hr 10/21/20 19:13 10/21/20 22:04 10/21/20 22:12 Temperature Pulse Rate 55 L 59 L 73 Respiratory Rate 20 16 16 Blood Pressure 141/66 H Pulse Oximetry 93 10/21/20 22:52 10/22/20 00:00 10/22/20 00:46 Temperature 96.8 F L Pulse Rate 78 76 64 Respiratory Rate 20 20 Blood Pressure 138/89 136/68 Pulse Oximetry 95 96
--- NOTE | 2020-10-22 15:19 | PM.CNCAR ---
Assessment and Plan Assessment and plan (1) PVT (paroxysmal ventricular tachycardia): Code(s): I47.2 - Ventricular tachycardia Status: Acute Assessment and Plan: On Amiodarone 200 mg BID for few more days then 200 mg daily. Obtain WiserTogetheriscan myoview stress test. (2) PAT (paroxysmal atrial tachycardia): Code(s): I47.1 - Supraventricular tachycardia Status: Acute (3) Chronic obstructive pulmonary disease: Qualifiers: COPD type: unspecified COPD Qualified Code(s): J44.9 - Chronic obstructive pulmonary disease, unspecified Code(s): J44.9 - Chronic obstructive pulmonary disease, unspecified Status: Acute Assessment and Plan: Nebulizer treatment as per hospitalist. (4) Tobacco abuse: Code(s): Z72.0 - Tobacco use Status: Acute Assessment and Plan: Counseled regarding smoking cessation. (5) Hypertension: Code(s): I10 - Essential (primary) hypertension Status: Acute Assessment and Plan: Stable. 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 Echo shows EF 45-50% and grade I diastolic dysfunction (E/e' 10). Appears to be euvolemic now. Will stop IV lasix. She was maintained on HCTZ previously, will restart that. Continue Mag supplements as her Mag was low. History of Present Illness History of Present Illness Consult date/time: 10/22/20 15:19 Reason for consult: SOB. 75 yr old woman who is my regular cardiology patient and PCP is Dr. Rosario presents to ER for sob. She has a history of hypertension, COPD, had mild TEMO in around 2017 but did not tolerate CPAP or mandibular device (sees Dr. Alarcon). Her daughter is at bedside. States since stopping HCTZ a few days ago she noted more sob and noted edema of legs. She went to Urgent care and given nebulizer treatment with benefit. She was then sent to ER. NTproBNP 2,740. CXR shows atelectasis of RML. EKG shows sinus rhythm with PAC's. Echo shows EF 45-50%, grade I diastolic dysfunction (E/e' 10), mod LAE, small PFO, mild AI/MR. She is limited at walking 1/2 block due to chronic back pain and COPD/COTTO. She smokes 5-7 cigarettes per day and has tried quitting in past extensively. She has chronic issues with constipation and that pushes up into her lungs making it harder to breathe. Denies palpitations, chest pain, orthopnea, PND, edema, dizziness. She has been started on Lasix 40 mg IV BID and nebulizer treatment and states her breathing is better and her edema resolved. Cardiovascular Procedures 10/22/20: Echo: EF 45-50%, grade I diastolic dysfunction (E/e' 10), mod LAE, small PFO, mild AI/R. Electrophysiology:: 10/16/20 EKG: Sinus rhythm with one PVC and one PAC, QTc 425 ms. 08/29/20 25 days event monitor: Sinus rhythm, HR range 56-181 bpm; average 78 bpm; 13% PAC's, 12 episodes of atrial tachycardia, fastest at 154 bpm, longest 35 beats; 4% PVC's, 7 episodes of VT, fastest at 181 bpm and longest 15 beats. 08/28/20 EKG: Sinus rhythm, atrial triplet, PAC's and PVC's. Stress Tests:: 08/28/20 CXR: Emphysema. Chronic RML collapse. Cardiomegaly. Reason For Visit: Acute exacerbation of CHF Review of Systems Constitutional: Constitutional: Reports as per HPI, Denies chills and Denies fever(s) Cardiovascular: Cardiovascular: Reports as per HPI, Denies chest pain, Denies irregular heart rhythm and Reports leg edema Respiratory: Respiratory: Reports as per HPI and Reports dyspnea Gastrointestinal: Gastrointestinal: Reports as per HPI, Denies abdominal pain and Reports constipation Genitourinary: Genitourinary: Reports as per HPI and Denies dysuria Musculoskeletal: Musculoskeletal: Reports as per HPI Neurologic: Reports as p
[2020-10-22] MEDS: ACETAMINOPHEN 325 MG TABLET 650 MG PO (19:14)
[2020-10-23] VITALS (8 sets, daily range): BP systolic 106–132; BP diastolic 52–55; PULSE 61–75; RESP 16–18; TEMP 36.6; O2SAT 93–94
[2020-10-23 05:56] LABS: Anion Gap 0 mmol/L (8-16); Blood Urea Nitrogen 15 mg/dL (7-17); Calcium 9.1 mg/dL (8.4-10.2); Carbon Dioxide 35 mmol/L (22-30); Chloride 99 mmol/L (98-107); Estimated CRCL calculation 41 ml/min; Estimated Glomerular Filt Rate > 60; Glucose 86 mg/dL (65-105); Potassium 3.8 mmol/L (3.4-5.0); Sodium 134 mmol/L (137-145)
[2020-10-23] MEDS: AMIODARONE HCL 200 MG TABLET PO ×2 (08:00→16:34)
[2020-10-23] MEDS: hydroCHLOROthiazide 25 MG TABLET PO (08:01)
[2020-10-23] MEDS: DORZOLAMIDE HCL 2% OPHTH DROPS 1 DROP EACH EYE ×3 (08:01→16:34)
[2020-10-23] MEDS: MAGNESIUM OXIDE 400 MG TABLET PO (08:02)
[2020-10-23] MEDS: lisinopriL 20 MG TABLET PO (08:02)
[2020-10-23] MEDS: OPTI-GEN TAB 1 TABLET PO (08:02)
--- NOTE | 2020-10-23 11:29 | PC.NURSE ---
[employer] spoke with Dr. Perales who gave orders to resume heart healthy diet.
--- NOTE | 2020-10-23 12:57 | PM.PNCARD ---
Progress Note: A&P Assessment and Plan (1) PVT (paroxysmal ventricular tachycardia): Code(s): I47.2 - Ventricular tachycardia Status: Acute Assessment and Plan: On Amiodarone 200 mg BID for few more days then 200 mg daily. Lexiscan myoview stress test today is negative for ischemia. (2) PAT (paroxysmal atrial tachycardia): Code(s): I47.1 - Supraventricular tachycardia Status: Acute (3) Chronic obstructive pulmonary disease: Qualifiers: COPD type: unspecified COPD Qualified Code(s): J44.9 - Chronic obstructive pulmonary disease, unspecified Code(s): J44.9 - Chronic obstructive pulmonary disease, unspecified Status: Acute Assessment and Plan: Nebulizer treatment as per hospitalist. (4) Tobacco abuse: Code(s): Z72.0 - Tobacco use Status: Acute Assessment and Plan: Counseled regarding smoking cessation. (5) Hypertension: Code(s): I10 - Essential (primary) hypertension Status: Acute Assessment and Plan: Stable. 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 Echo shows EF 45-50% and grade I diastolic dysfunction (E/e' 10). Appears to be euvolemic now. Stopped IV lasix. Resumed HCTZ previously. Continue Mag supplements as her Mag was low. May d/c home from cardiology standpoint and f/u with me in 2 weeks. Subjective Date/time seen: 10/23/20 12:57 Denies chest pain. Has intermittent sob. Exam Const: General: cooperative, healthy appearing and comfortable Resp: Auscultation: no crackles, no rales, no rhonchi, no wheezes and diminished lung sounds Cardio: Jugular venous distension: no JVD Rate: regular rate Rhythm: regular rhythm Heart sounds: no murmurs Peripheral pulses: dorsalis pedis present GI: GI Palp: No abdominal tenderness and Yes Soft to palpation Neuro: General: oriented to person, oriented to place and oriented to time Extrem: Right lower extremity: no edema Left lower extremity: no edema Objective Data Vital Signs Vital Signs: Vital Signs - 24 hr 10/22/20 14:00 10/22/20 16:00 10/22/20 17:24 Temperature 97.1 F L Pulse Rate 69 66 71 Respiratory Rate 20 Blood Pressure 115/52 L Pulse Oximetry 92 10/22/20 20:00 10/22/20 21:33 10/22/20 22:00 Temperature 97.9 F Pulse Rate 72 72 69 Respiratory Rate 20 16 Blood Pressure 137/59 L Pulse Oximetry 92 94 10/23/20 00:00 10/23/20 04:00 10/23/20 06:00 Temperature 97.9 F Pulse Rate 61 63 67 Respiratory Rate 16 Blood Pressure 132/55 L Pulse Oximetry 94 10/23/20 08:00 10/23/20 12:00 Temperature Pulse Rate 69 75 Respiratory Rate Blood Pressure Pulse Oximetry Intake/Output Intake/Output: Intake & Output 10/20/20 10/21/20 10/22/20 10/23/20 23:59 23:59 23:59 23:59 Intake Total 1440 Output Total 1400 900 Balance 40 -900 Meds/Results Medications: Active Medications Generic Name Dose Route Start Last Admin Trade Name Freq PRN Reason Stop Dose Admin Acetaminophen 650 mg 10/22/20 17:35 10/22/20 19:14 Acetaminophen 325 Mg Tablet PO 650 mg Q4H PRN Administration Mild Pain (1-3) or Fever Albuterol 1 puff 10/22/20 17:38 Albuterol Sulfate (*Sp) Aerosol 1 Puff INHALATION Q4HRT PRN Shortness Of Breath Amiodarone HCl 200 mg 10/22/20 08:00 10/23/20 08:00 Amiodarone Hcl 200 Mg Tablet PO 200 mg BIDWM MASSIMO Administration Budesonide/Formoterol Fumarate 2 puff 10/22/20 08:00 10/23/20 08:00 Budesonide/Form 160-4.5 Mcg (*Sp) INHALATION 2 puff Q12HRT MASSIMO Administration Calcium Carbonate 500 mg 10/22/20 09:00 10/23/20 08:00 Calcium/Vitamin D 500 Mg Tablet PO
[2020-10-23] MEDS: ACETAMINOPHEN 325 MG TABLET 650 MG PO (14:44)
--- NOTE | 2020-10-23 15:29 | EST_ITS ---
Patient Info Name: Raven Sharma Age: 75 years : 1945 Gender: Female Ht: 62 in Wt: 142 lbs BSA: 1.69 m2 Exam Date: 10/23/2020 9:47 AM Patient Status: Inpatient Admit Date: 10/22/2020 Staff Ordering Physician: Edwin Perales DO Attending Provider: Miri Miller PA-C Exercise Technologist: Libby Matta RDCS Exercise Physician: Edwin Perales DO Exam Type: CA stress gricel w NM Study Info Indications R06.02 - Shortness of breath A regadenoson stress test was performed. Summary 1. 1. Negative lexiscan stress test for ischemic ST changes by ECG criteria. 2. 2. Baseline hypertension. 3. 3. Nuclear scan to follow and will be reported separately. Please correlate with it. 4. 4. Patient informed of the above results. Protocol: Lexiscan Stress ECG Details Stage: REST Duration (min): 17 min : 28 sec HR (bpm): 74 SBP (mmHg): 155 DBP (mmHg): 87 Stage: REST Duration (min): 22 min : 34 sec HR (bpm): 75 SBP (mmHg): 155 DBP (mmHg): 87 Stage: STAGE 1 Duration (min): 0 min : 59 sec HR (bpm): 76 SBP (mmHg): 155 DBP (mmHg): 87 Stage: RECOVERY Duration (min): 1 min : 0 sec HR (bpm): 85 SBP (mmHg): 155 DBP (mmHg): 87 Stage: RECOVERY Duration (min): 2 min : 0 sec HR (bpm): 84 SBP (mmHg): 155 DBP (mmHg): 87 Stage: RECOVERY Duration (min): 3 min : 0 sec HR (bpm): 86 SBP (mmHg): 137 DBP (mmHg): 84 Stage: RECOVERY Duration (min): 4 min : 0 sec HR (bpm): 85 SBP (mmHg): 141 DBP (mmHg): 82 Stage: RECOVERY Duration (min): 4 min : 50 sec HR (bpm): 93 SBP (mmHg): 144 DBP (mmHg): 82 Rest HR: 75 bpm Peak HR: 92 bpm Rest Sys BP: 155 mmHg Peak Sys BP: 144 mmHg Max Pred HR: 143 bpm % Max Pred HR: 64 % Target HR: 122 bpm Max RPP: 13,248 bpm*mmHg Termination Reason: Completed protocol Cardiac Symptoms: Shortness of breath, Headache Total Time: 1 min : 0 sec Rest Her BP: 87 mmHg Peak Her BP: 82 mmHg Total Dose: 0.4 mg Resting ECG Sinus rhythm with PAC's. Stress ECG No ST changes. Arrhythmias None. Report Signatures
--- NOTE | 2020-10-23 16:13 | PM.DS ---
DS: Admitting Diagnosis Admitting Diagnosis Admitting Diagnosis: CHF exacerbation DS: Discharge Diagnosis Discharge Diagnosis (1) Acute exacerbation of CHF (congestive heart failure): Qualifiers: Heart failure type: combined systolic and diastolic Qualified Code(s): I50.43 - Acute on chronic combined systolic (congestive) and diastolic (congestive) heart failure Code(s): I50.9 - Heart failure, unspecified Status: Acute Assessment and Plan: Presented with COTTO and elevated BNP. Echo reviewed which showed EF 40-45% with grade I diastolic dysfunction. She was seen in consultation by cardiology and diuresed with Lasix. She became euvolemic. She was restarted on hydrochlorothiazide to continue as an outpatient per cardiology recommendations with 2 week outpatient follow up. CHF education provided. (2) PVT (paroxysmal ventricular tachycardia): Code(s): I47.2 - Ventricular tachycardia Status: Acute Assessment and Plan: Rate was controlled. Seen by cardiology. Lexiscan stress test reviewed and was negative for ischemia. Continue amiodarone. (3) PAT (paroxysmal atrial tachycardia): Code(s): I47.1 - Supraventricular tachycardia Status: Acute Assessment and Plan: As above. (4) Chronic obstructive pulmonary disease: Qualifiers: COPD type: unspecified COPD Qualified Code(s): J44.9 - Chronic obstructive pulmonary disease, unspecified Code(s): J44.9 - Chronic obstructive pulmonary disease, unspecified Status: Acute Assessment and Plan: Not in acute exacerbation. She maintained adequate oxygen saturations on room air. Continue spiriva (5) Tobacco abuse: Code(s): Z72.0 - Tobacco use Status: Acute Assessment and Plan: She smokes approximately 7 cigarettes per day. She was educated on smoking cessation and verbalized understanding. She is motivated to quit smoking. DS: Summary Hospital Course Reason for hospitalization: Dyspnea Hospital Course: Date of admission: 10/21/2020 Date of discharge: 10/23/2020 Raven Sharma is a 75-year-old female with a history of COPD, asthma, GERD, and hypertension who presented to the emergency department on 10/21/2020 with complaints of shortness of breath. She had been seen at the urgent care previously and was referred to the ED. Have been ongoing for approximately 4 days with increased lower extremity edema. Upon presentation to the emergency department, her vital signs were stable, she was afebrile, CBC unremarkable, chloride was slightly decrease in CO2 slightly elevated with additional electrolytes stable, BNP 2740, troponin 0.015, magnesium 1.9, CXR showed chronic right middle lobe atelectasis. She was admitted to the hospitalist service for further evaluation management was seen in consultation by cardiology. Please see above for further details. She underwent stress testing which was negative. Her dyspnea improved significantly and she was feeling much better. Given her overall improvement, she was determined to no longer require inpatient care and was felt to be stable for discharge. We discussed worrisome signs and symptoms for which to return and she was educated on her medications. 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 She was discharged in hemodynamically stable condition on 10/23/2020. Status at Discharge Functional status at discharge: independent ambulation Overall status at discharge: patient is progressing back to baseline Time Spent with Patient Time attestation: Total time spent providing and/or coordinating discharge services: 45 minutes Exam Narrative: Exam Narrative: Ms. Sharma is a well-nourished, well-appearing 75-year-old female who is sitting in a chair by the bedside. She appears comfortable and is in NARD. Neuro: awake, alert and oriented x4, speech clear, no focal neuro deficits noted HEENMT: normocephalic, atraum
== END 2020-10-23 17:38 | disposition home or self-care (01) | DRG 292 ==
LOC: ANHED 23:21 → ANH2MED 23:52
PROVIDERS: Physician Assistant; Admitting Provider Internal Medicine; Emergency Provider Emergency Medicine; PCP Family Medicine; Visit Provider Internal Medicine
DX: I11.0 Hypertensive heart disease with heart failure (principal); I47.2 Ventricular tachycardia; I47.1 Supraventricular tachycardia; I50.43 Acute on chronic combined systolic (congestive) and diastolic (congestive) heart failure; G47.33 Obstructive sleep apnea (adult) (pediatric); J44.9 Chronic obstructive pulmonary disease, unspecified; F17.210 Nicotine dependence, cigarettes, uncomplicated; K21.9 Gastro-esophageal reflux disease without esophagitis; Z79.899 Other long term (current) drug therapy
CPT/HCPCS: 36415; 71046; 78452; 80048; 83735; 83880; 84484; 85025; 93005; 93017; 93306; 94640; 96374; 96375; 96376; 99213; 99285; A9270; A9502; G0378; G0463; J1940; J2785

== ENCOUNTER 2020-11-13 18:28 | Inpatient (IN) | payer MEDICARE, OTHER, SELFPAY ==
--- NOTE | ~2020-11-13 | XR_ITS ---
XR chest 2V DATE: 11/13/2020 19:43 INDICATION: Shortness of breath. Low oxygen saturation. History of asthma and hypertension. TECHNIQUE: AP and lateral views COMPARISON: 10/21/2020 PA and lateral chest FINDINGS: Cardiomegaly. Aortic ectasia, calcification, tortuosity. Prominent central pulmonary arteries suggesting pulmonary hypertension. Lateral hyperinflation sugges ting COPD. Chronic middle lobe atelectasis. No active infiltrate or consolidation, pleural effusion or pulmonary vascular congestion or pneumotho rax. Diffuse osteopenia. Probable left calcific rotator cuff tendinitis. IMPRESSION: Cardiomegaly, aortic atherosclerosis Chronic middle lobe atelectasis. Bilateral hyperinflation and prominent central pulmonary arteries, suggesting COPD and pulmonary hype rtension Reviewed, dictated and finalized at location [facility]. IMPRESSION: Cardiomegaly, aortic atherosclerosis Chronic middle lobe atelectasis. Bilateral hyperinflation and prominent central pulmonary arteries, suggesting C OPD and pulmonary hypertension
--- NOTE | ~2020-11-13 | XR_ITS ---
XR abdomen NG/feed tube insert DATE: 11/13/2020 23:31 INDICATION: NG tube placement TECHNIQUE: Portable upright AP view on 11/30/2020 at 2333 hours COMPARISON: 11/13/[address] abdomen pelvis FINDINGS: A nasogastric tube is present, the distal tip overlying the body of the stomach. IMPRESSION: NG tube in stomach Reviewed, dictated and finalized at [facility]. Reviewed, dictated and finalized at [facility]. IMPRESSION: NG tube in stomach
--- NOTE | ~2020-11-13 | CT_ITS ---
EXAMINATION: CT abdomen pelvis wo con DATE: 11/13/2020 21:23 INDICATION: Abdominal pain and vomiting. Elevated serum creatinine. TECHNIQUE: Computed tomography (CT) of the abdomen and pelvis was performed without intravenous contr ast. Automated exposure control and iterative reconstruction technique were employed. Exam dose: 350 .62 mGy-cm total exam DLP. COMPARISON: None. FINDINGS: There is focal middle lobe atelectasis. There is mild discoid atelectasis and/or scarring a t the lung bases bilaterally. Heart size is within normal range. Coronary artery calcifications. No pericardial or pleural effusion . There is an enlarged fluid distended distal esophagus and small sliding hiatal hernia and prominent f luid distention and air-fluid level of the stomach. There is dilatation and extensive air-fluid level s throughout all but the very distal small bowel suggesting distal small bowel obstruction. Diverticulosis of the left colon; no CT evidence of diverticulitis. 3.1 cm left hepatic cyst. The liver, gallbladder, bile ducts, spleen, pancreas and pancreatic duct ar e otherwise unremarkable. Unremarkable adrenal glands. No renal mass lesion. Bilateral perinephric stranding, greater on the left. No ureteral calculus or h ydroureteronephrosis is evident. The urinary bladder is relatively evacuated, otherwise unremarkable. Moderately prominent right inguinal hernia containing fat and some fluid. There is extensive calcification of the abdominal aorta as well as celiac, superior mesenteric and pr ominent bilateral renal artery calcifications. No intraperitoneal or retroperitoneal or pelvic mass l esion or adenopathy or ascites. These osteopenia. Degenerative changes of the thoracic and particularly lumbar spine including partic ularly severe degenerative disc disease and mild retrolisthesis at L1-2 and prominent degenerative ch armando at the apophyseal joints with associated grade 1 anterolisthesis at L4-5. IMPRESSION: Distal small bowel obstruction Focal middle lobe atelectasis Diverticulosis of left colon; no CT evidence of diverticulitis 3.1 cm left hepatic cyst Reviewed, dictated and finalized at [facility]. Reviewed, dictated and finalized at location [facility].
[2020-11-13 19:12] VITALS: BP 105/91; PULSE 82; RESP 17; TEMP 36.5; O2SAT 86
--- NOTE | 2020-11-13 19:24 | ECG_ITS ---
Measurements Intervals [place] Rate: 85 P: 97 ND: 141 QRS: 41 QRSD: 100 T: 70 QT: 403 QTc: 481 Interpretive Statements SINUS RHYTHM VENTRICULAR PREMATURE COMPLEX AND SUPRAVENTRICULAR TRIGEMINY VOLTAGE CRITERIA FOR LVH ABNORMAL ECG Electronically Signed On 11-13-2020 21:29:21 CDT by Edwin Perales D.O.
[2020-11-13 19:40] LABS: Basophils Absolute Auto 0.1 K/mm3 (0.0-0.1); Basophils Percent Auto 0.4 % (0.2-1.2); Eosinophils Percent Auto 0.1 % (0-4.4); Hematocrit 49.1 % (37.0-47.0); Hemoglobin 16.1 g/dL (12.0-15.0); Immature Granulocyte Absolute 0.03 K/mm3 (0.00-0.031); Immature Granulocyte Percent A 0.2 % (0-0.5); Lymphocytes Absolute Auto 0.35 K/mm3 (0.9-3.2); Lymphocytes Percent Auto 2.2 % (18.3-44.2); Mean Corpuscular HGB Conc 32.8 g/dl (32-36); Mean Corpuscular Hemoglobin 32.4 pg (26-34); Mean Corpuscular Volume 98.8 fl (80-100); Mean Platelet Volume 8.8 fl (7.4-10.4); Monocytes Absolute Auto 1.1 K/mm3 (0.1-0.6); Neutrophils Absolute Auto 14.5 K/mm3 (1.3-6.7); Neutrophils Percent Auto 90.1 % (45.5-73.1); Platelet Count Result 341 k/mm3 (150-375); Red Blood Count 4.97 M/mm3 (4.2-5.4); Red Cell Distribution Width 12.8 % (11.5-14.5); White Blood Count 16.1 K/mm3 (4.5-10.0)
--- NOTE | 2020-11-13 19:40 | PC.NURSE ---
Added on lipase
[2020-11-13 19:51] LABS: Anion Gap 12 mmol/L (8-16); Blood Urea Nitrogen 26 mg/dL (7-17); Calcium 10.1 mg/dL (8.4-10.2); Carbon Dioxide 28 mmol/L (22-30); Chloride 91 mmol/L (98-107); Estimated Glomerular Filt Rate 26; Glucose 162 mg/dL (65-105); Lipase 149 U/L (23-300); Potassium 4.8 mmol/L (3.4-5.0); Sodium 131 mmol/L (137-145)
[2020-11-13] MEDS: SODIUM CHLORIDE 0.9% IV 1,000 ML 999 ML IV CONT (20:59)
[2020-11-13 21:00] VITALS: BP 104/68; PULSE 80; RESP 28; O2SAT 96
[2020-11-13 22:48] VITALS: BP 104/63; PULSE 78; RESP 93; O2SAT 30
--- NOTE | 2020-11-13 22:49 | ED.GENADULT ---
HPI - General Adult General Chief complaint: Abdominal Pain Stated complaint: sob and abd pain with n/v Time Seen by Provider: 11/13/20 20:42 History of Present Illness HPI narrative: Patient 75-year-old female presents emergency department with chief complaint of abdominal pain. Patient reports she been having nausea and vomiting. The patient reports has not been able to tolerate p.o. intake states she feels extremely dry. The patient states she has history of atrial fibrillation and was on amiodarone but it was stopped due to increasing shortness of breath. Patient states that the discomfort has not improved by anything reports that she has never had a bowel obstruction. Patient states symptoms are not improved by anything. Related Data Home Medications Medication Instructions Recorded Confirmed albuterol sulfate 90 mcg/actuation 1 inhalation INHALATION Q4H 07/12/19 11/07/20 aerosol inhaler calcium carb-vit D3-minerals 600 1 tablet PO DAILY 07/12/19 11/07/20 mg calcium-200 unit tablet dorzolamide 2 % eye drops 1 drop EACH EYE TID 07/12/19 11/07/20 ergocalciferol (vitamin D2) 1,250 1,250 mcg PO WEEKLY 07/12/19 11/07/20 mcg (50,000 unit) capsule Ocuvite Adult 50 Plus 1 cap PO DAILY 08/28/20 11/07/20 magnesium carbonate 250 mg capsule 250 mg PO .2-3 daily cap 10/16/20 11/07/20 tiotropium bromide 1.25 2 puff INHALATION DAILY 10/16/20 11/07/20 mcg/actuation mist for inhalation Breo Ellipta 100 inh INHALATION DAILY 10/21/20 11/07/20 lisinopril 20 mg PO BID 10/22/20 11/07/20 Allergies Allergy/AdvReac Type Severity Reaction Status Date / Time codeine Allergy Unknown Vomiting Verified 11/07/20 13:43 losartan Allergy Unknown unk Verified 11/07/20 13:43 timolol Allergy Unknown Shortness Verified 11/07/20 13:43 of breat amoxicillin [From Augmentin] AdvReac Nausea and Verified 11/07/20 13:43 Vomiting clavulanic acid AdvReac Nausea and Verified 11/07/20 13:43 [From Augmentin] Vomiting Review of Systems Review of Systems: Narrative: A 10 system review of systems was completed on the patient and is negative except for what is stated in the HPI. Nursing and ancillary documentation was reviewed. [facility] Past Medical History Medical History Asthma Chronic obstructive pulmonary disease GERD (gastroesophageal reflux disease) Hypertension Surgical History Surgical History History of hysterectomy Family History Family History Mother Family history of malignant neoplasm of breast in first degree relative Other Family history of arthritis Family history of malignant neoplasm of thyroid Social History Social History Smoking packs per day: 1 Smoking cigarettes per day: 20.0 Years smoked: 50 Smoking pack-years: 50.00 Smoking status: Current every day smoker Tobacco type: cigarettes Second hand tobacco smoke exposure: Yes Alcohol intake: never Substance use: never Substance use type: does not use Gender identity (if verbalized by the patient): Female Spiritual care concerns: No Exam Narrative: Exam Narrative: GENERAL: Well-appearing, well-nourished, and in no acute distress. HEAD: Normocephalic, atraumatic. EYES: PERRLA and EOMI. ENT: Nares clear, no rhinorrhea or epistaxis. Mucous membranes moist. NECK: Supple. CHEST: Clear to auscultation. No respiratory distress. HEART: Regular rate and rhythm. No murmur heard. Normal peripheral pulses. ABDOMEN: Soft, diffuse tenderness to palpation, abdomen appears distended, . EXTREMITIES: Normal range of motion. No edema. SKIN: Warm, dry, no rash. NEURO: No focal deficits. Alert and oriented x3. PSYCH: Normal mood and affect. Course Course Emergency Course: CT scan
[2020-11-13 23:33] VITALS: BP 126/60; PULSE 78; RESP 20; O2SAT 93
[2020-11-14] VITALS (25 sets, daily range): BP systolic 105–142; BP diastolic 50–77; PULSE 16–88; RESP 14–98; TEMP 36.1–37.3; O2SAT 70–98; BMI 24.5
--- NOTE | 2020-11-14 00:59 | ADMGEN ---
This patient, Raven Sharma, was admitted to Medical Room 248-. Patient/family oriented to hospital policies and general routines including ID bracelet, bed and alarms, visiting hours, pain management, procedures, bathroom and other care routines, personal items, smoking policy, room service/diet, and visiting hours. Information on how to activate the Rapid Response Team has been discussed. Patient/Family are encouraged to report perceived risks to care and to ask questions if they do not understand what they are told or what they should do.
[2020-11-14] MEDS: SODIUM CHLORIDE 0.9% IV 1,000 ML 125 ML IV CONT (01:49)
--- NOTE | 2020-11-14 01:49 | PM.IMHP ---
H&P: HPI History of Present Illness Date/Time: 11/14/20 01:49 Chief Complaint: nausea, vomiting abdominal pain Narrative: Patient 75-year-old female presents emergency department with chief complaint of abdominal pain and nausea, vomitign. The patient reports has not been able to tolerate p.o. intake states she feels extremely dry. She reports having bowel problems for a long time with constipation and diarrhea intemrittently. she was most recently having some diarrhea. her last bm was yesterday in the afternoon. She has not had any since then and feels bloated in her abdomen along with nausea and vomting. she came to the ED for evaluation and was found to ahve distal small bowel obstruction. She had NG tube placed with release of a canister full of bilouos output. she is admitted for further evaluation. general srugery has been consulted. she had hx of hysterectomy in the past. she has hx of chf and also ventricular tachycardia for whcih she was placed on amiodarone, but now it has been stopped since her recent cardiology follow up wtih Dr. Perales as it was supected to have lead to increasing shortness of breath. she has never had bowel obstruction in the apst. Review of Systems Review of Systems: Narrative: - CONSTITUTIONAL: Denies weight loss, fever and chills. - HEENT: Denies changes in vision and hearing - RESPIRATORY: Denies SOB and cough. - CV: Denies palpitations and CP. - GI: rpeorts abdominal pain, nausea, vomiting and diarrhea. - : Denies dysuria and urinary frequency. - MSK: Denies myalgia and joint pain. - SKIN: Denies rash and pruritus. - NEUROLOGICAL: Denies headache and syncope. - PSYCHIATRIC: Denies recent changes in mood. Denies anxiety and depression. All systems reviewed & are unremarkable except as noted in HPI and below Constitutional: Constitutional: Reports fatigue and Reports weakness Neurologic: Reports weakness Endocrine: Endocrine: Reports fatigue PMF Past Medical History Medical History Asthma Chronic obstructive pulmonary disease GERD (gastroesophageal reflux disease) Hypertension Surgical History Surgical History History of hysterectomy Family History Family History Mother Family history of malignant neoplasm of breast in first degree relative Other Family history of arthritis Family history of malignant neoplasm of thyroid Social History Social History Smoking packs per day: 1 Smoking cigarettes per day: 20.0 Years smoked: 50 Smoking pack-years: 50.00 Smoking status: Current every day smoker Tobacco type: cigarettes Second hand tobacco smoke exposure: Yes Alcohol intake: never Substance use: never Substance use type: does not use Gender identity (if verbalized by the patient): Female Spiritual care concerns: No Meds Home Medications and Allergies Home Medications Medication Instructions Recorded Confirmed Type albuterol sulfate 90 mcg/actuation 1 inhalation INHALATION Q4H PRN 07/12/19 11/14/20 History aerosol inhaler calcium carb-vit D3-minerals 600 1 tablet PO DAILY 07/12/19 11/14/20 History mg calcium-200 unit tablet dorzolamide 2 % eye drops 1 drop EACH EYE TID 07/12/19 11/14/20 History ergocalciferol (vitamin D2) 1,250 1,250 mcg PO WEEKLY 07/12/19 11/14/20 History mcg (50,000 unit) capsule Ocuvite Adult 50 Plus 1 cap PO DAILY 08/28/20 11/14/20 History diltiazem HCl 120 mg capsule,24 120 mg PO DAILY #30 cap 09/26/20 11/14/20 Rx hr,extended release magnesium carbonate 250 mg capsule 250 mg PO TID cap 10/16/20 11/14/20 History Breo Ellipta 100 inh INHALATION DAILY 10/21/20 11/14/20 History lisinopril 20 mg PO DAILY 10/22/20 11/14/20 History hydrochlorothiazide
[2020-11-14 05:33] LABS: Basophils Percent Auto 0.3 % (0.2-1.2); Eosinophils Absolute Auto 0.1 K/mm3 (0-0.3); Eosinophils Percent Auto 0.5 % (0-4.4); Hematocrit 44.3 % (37.0-47.0); Hemoglobin 14.7 g/dL (12.0-15.0); Immature Granulocyte Absolute 0.06 K/mm3 (0.00-0.031); Immature Granulocyte Percent A 0.5 % (0-0.5); Lymphocytes Absolute Auto 0.55 K/mm3 (0.9-3.2); Lymphocytes Percent Auto 4.1 % (18.3-44.2); Mean Corpuscular HGB Conc 33.2 g/dl (32-36); Mean Corpuscular Hemoglobin 33.1 pg (26-34); Mean Corpuscular Volume 99.8 fl (80-100); Mean Platelet Volume 9.6 fl (7.4-10.4); Monocytes Absolute Auto 1.2 K/mm3 (0.1-0.6); Monocytes Percent Auto 9.2 % (2.6-8.5); Neutrophils Absolute Auto 11.4 K/mm3 (1.3-6.7); Neutrophils Percent Auto 85.4 % (45.5-73.1); Platelet Count Result 303 k/mm3 (150-375); Red Blood Count 4.44 M/mm3 (4.2-5.4); Red Cell Distribution Width 12.9 % (11.5-14.5); White Blood Count 13.3 K/mm3 (4.5-10.0)
[2020-11-14 05:54] LABS: Anion Gap 11 mmol/L (8-16); Blood Urea Nitrogen 40 mg/dL (7-17); Calcium 9.4 mg/dL (8.4-10.2); Carbon Dioxide 31 mmol/L (22-30); Chloride 91 mmol/L (98-107); Estimated CRCL calculation 14 ml/min; Estimated Glomerular Filt Rate 20; Glucose 118 mg/dL (65-105); Potassium 4.7 mmol/L (3.4-5.0); Sodium 133 mmol/L (137-145)
[2020-11-14] MEDS: HEPARIN SODIUM 5,000 UNITS/ML VIAL 5000 UNITS SUB-Q ×2 (09:07→20:52)
[2020-11-14] MEDS: DORZOLAMIDE HCL 2% OPHTH DROPS 1 DROP EACH EYE ×2 (09:07→12:51)
[2020-11-14] MEDS: SODIUM CHLORIDE 0.9% IV 1,000 ML 80 ML IV CONT ×2 (10:02→23:41)
[2020-11-14] MEDS: PHENOL/SOD PHENO SPRAY CHERRY (*BKC) 1 SPRAY MUCOUS MEM (13:54)
--- NOTE | 2020-11-14 14:45 | P.PNIM_ITS ---
Progress Note: A&P Assessment and Plan (1) Small bowel obstruction: Code(s): K56.609 - Unspecified intestinal obstruction, unspecified as to partial versus complete obstruction Status: Acute Assessment and Plan: * Ct Shows: Distal small bowel obstruction * Patient came in for nausea and vomiting * bowel rest * NG decompression * NG to intermittent suction-Brown secretions * general surgery consult thank you * Going to surgery today * NS at 80ml/hr * pain control-Morphine 4mg IV Q2hr PRN * Zofran 4mg IV Q4hr * Phenol 1 spray PRN for throat discomfort (2) Hypertension: Code(s): I10 - Essential (primary) hypertension Status: Acute Assessment and Plan: * Blood pressure 123/53 * Trend blood pressure * Hold PO Lisinopril 20mg PO, hydrochlorothiazide 25 mg p.o. daily, * Will add hydralizine 10mg PRN with parameters (3) PVT (paroxysmal ventricular tachycardia): Code(s): I47.2 - Ventricular tachycardia Status: Acute Assessment and Plan: * Currently SR in 70s * cardizem 120mg PO on hold * Will add an agent if patient becomes tachycardic or goes into an arrhythmia (4) PAT (paroxysmal atrial tachycardia): Code(s): I47.1 - Supraventricular tachycardia Status: Acute Assessment and Plan: * See above (5) Chronic obstructive pulmonary disease: Qualifiers: COPD type: unspecified COPD Qualified Code(s): J44.9 - Chronic obstructive pulmonary disease, unspecified Code(s): J44.9 - Chronic obstructive pulmonary disease, unspecified Status: Acute Assessment and Plan: * Wheezes on exam * Albuterol breathing treatments ordered * Continue home Symbicort (6) Hypersomnia: Code(s): G47.10 - Hypersomnia, unspecified Status: Acute (7) Tobacco abuse: Code(s): Z72.0 - Tobacco use Status: Acute (8) Acute renal failure: Code(s): N17.9 - Acute kidney failure, unspecified Status: Acute Assessment and Plan: * cr 1.6, * baseine is normal. * iv hydration. * hold diuretics. (9) Hyponatremia: Code(s): E87.1 - Hypo-osmolality and hyponatremia Status: Acute (10) Atelectasis: Code(s): J98.11 - Atelectasis Status: Acute Assessment and Plan: * middle lobe atelecasis: * this has been a chronic finding. * CT 2020 with chronic colasep fo right middle lobe (11) Lung nodule: Code(s): R91.1 - Solitary pulmonary nodule Status: Acute Assessment and Plan: * follow up as out patient (12) Leukocytosis: Code(s): D72.829 - Elevated white blood cell count, unspecified Status: Acute Assessment and Plan: * WBC is 13.3 * Trend labs * Labs in the am Time Spent With Patient Time with patient: 25 - 35 minutes Subjective Date/time seen: 11/14/20 14:30 Patient 75-year-old female with a past medical history of asthma, GERD, and COPD who presents to the emergency department with chief complaint of abdominal pain and nausea, vomiting. CT findings included a bowel obstruction. Patient is supposed to be going to surgery today. Patient seem bothered at this time. She stated that she is having pain in her throat from the NG tube. However, she stated that her nausea is under control and she hidalgo
--- NOTE | 2020-11-14 14:45 | PM.IMPN ---
Progress Note: A&P Assessment and Plan (1) Small bowel obstruction: Code(s): K56.609 - Unspecified intestinal obstruction, unspecified as to partial versus complete obstruction Status: Acute Assessment and Plan: Ct Shows: Distal small bowel obstruction Patient came in for nausea and vomiting bowel rest NG decompression NG to intermittent suction-Brown secretions general surgery consult thank you Going to surgery today NS at 80ml/hr pain control-Morphine 4mg IV Q2hr PRN Zofran 4mg IV Q4hr Phenol 1 spray PRN for throat discomfort (2) Hypertension: Code(s): I10 - Essential (primary) hypertension Status: Acute Assessment and Plan: Blood pressure 123/53 Trend blood pressure Hold PO Lisinopril 20mg PO, hydrochlorothiazide 25 mg p.o. daily, Will add hydralizine 10mg PRN with parameters (3) PVT (paroxysmal ventricular tachycardia): Code(s): I47.2 - Ventricular tachycardia Status: Acute Assessment and Plan: Currently SR in 70s cardizem 120mg PO on hold Will add an agent if patient becomes tachycardic or goes into an arrhythmia (4) PAT (paroxysmal atrial tachycardia): Code(s): I47.1 - Supraventricular tachycardia Status: Acute Assessment and Plan: See above (5) Chronic obstructive pulmonary disease: Qualifiers: COPD type: unspecified COPD Qualified Code(s): J44.9 - Chronic obstructive pulmonary disease, unspecified Code(s): J44.9 - Chronic obstructive pulmonary disease, unspecified Status: Acute Assessment and Plan: Wheezes on exam Albuterol breathing treatments ordered Continue home Symbicort (6) Hypersomnia: Code(s): G47.10 - Hypersomnia, unspecified Status: Acute (7) Tobacco abuse: Code(s): Z72.0 - Tobacco use Status: Acute (8) Acute renal failure: Code(s): N17.9 - Acute kidney failure, unspecified Status: Acute Assessment and Plan: cr 1.6, baseine is normal. iv hydration. hold diuretics. (9) Hyponatremia: Code(s): E87.1 - Hypo-osmolality and hyponatremia Status: Acute (10) Atelectasis: Code(s): J98.11 - Atelectasis Status: Acute Assessment and Plan: middle lobe atelecasis: this has been a chronic finding. CT 2019 with chronic colasep fo right middle lobe (11) Lung nodule: Code(s): R91.1 - Solitary pulmonary nodule Status: Acute Assessment and Plan: follow up as out patient (12) Leukocytosis: Code(s): D72.829 - Elevated white blood cell count, unspecified Status: Acute Assessment and Plan: WBC is 13.3 Trend labs Labs in the am Time Spent With Patient Time with patient: 25 - 35 minutes Subjective Date/time seen: 11/14/20 14:30 Patient 75-year-old female with a past medical history of asthma, GERD, and COPD who presents to the emergency department with chief complaint of abdominal pain and nausea, vomiting. CT findings included a bowel obstruction. Patient is supposed to be going to surgery today. Patient seem bothered at this time. She stated that she is having pain in her throat from the NG tube. However, she stated that her nausea is under control and she has not vomited since the NG tube was inserted. Patient also stated that she is short of breath, and stated that this started when she was admitted last time for a stress test. However, her lungs revealed wheezes which she stated is not the norm for her. She did admit to being a smoker. Patient did deny chest pain, nausea, vomiting, abdominal pain, constipation, diarrhea, urinary dysfunction, pain or burning with urinating, headache, dizziness, confusion, falls, syncope, numbness and tingling, or lightheadedness weakness or fatigue. She was not really interactive however she stated that she felt horrible.
--- NOTE | 2020-11-14 14:50 | PC.NURSE ---
To OR per bed, IV saline locked. Report given to JOAN Jama.
--- NOTE | 2020-11-14 14:55 | PM.CNGS ---
Assessment and Plan Assessment and plan (1) Incarcerated right inguinal hernia: Code(s): K40.30 - Unilateral inguinal hernia, with obstruction, without gangrene, not specified as recurrent Status: Acute Assessment and Plan: I reviewed the images independently and then reviewed this with Radiology. She does appear to have an incarcerated right inguinal hernia containing a loop of bowel that is likely the cause of the small bowel obstruction. I have recommended urgent repair of the right inguinal hernia, with possible bowel resection. I discussed that there is a possibility that the bowel was strangulated and will require resection. I discussed that there increased infection risks associated with this. If I am unable to perform this through the right groin incision, I may need to proceed with exploratory laparotomy. I have discussed the procedure as well as risks benefits and alternatives. Will continue NG decompression at this time. NG will be removed once bowel function returns postoperatively. This is a high risk surgery given the amount of time the patient has likely had an incarcerated inguinal hernia and her multiple comorbidities. (2) Small bowel obstruction: Code(s): K56.609 - Unspecified intestinal obstruction, unspecified as to partial versus complete obstruction Status: Acute (3) Acute renal failure: Code(s): N17.9 - Acute kidney failure, unspecified Status: Acute (4) Dehydration: Code(s): E86.0 - Dehydration Status: Acute (5) Hypertension: Code(s): I10 - Essential (primary) hypertension Status: Acute (6) Acute exacerbation of CHF (congestive heart failure): Qualifiers: Heart failure type: combined systolic and diastolic Qualified Code(s): I50.43 - Acute on chronic combined systolic (congestive) and diastolic (congestive) heart failure Code(s): I50.9 - Heart failure, unspecified Status: Acute (7) TEMO (obstructive sleep apnea): Code(s): G47.33 - Obstructive sleep apnea (adult) (pediatric) Status: Acute (8) Chronic obstructive pulmonary disease: Qualifiers: COPD type: unspecified COPD Qualified Code(s): J44.9 - Chronic obstructive pulmonary disease, unspecified Code(s): J44.9 - Chronic obstructive pulmonary disease, unspecified Status: Acute (9) Tobacco abuse: Code(s): Z72.0 - Tobacco use Status: Acute History of Present Illness Consult details Consult date: 11/14/20 Reason for consult: other (Small-bowel obstruction) Requesting physician: Dylan Xavier MD Narrative: This is a 75-year-old woman who I am asked to see for a small-bowel obstruction. She presented to the emergency department last night with nausea and vomiting. Her last bowel movement was 1-2 days ago. She states that she has had intermittent bowel problems over the past couple months. She has also had some cardiac issues lately. Her daughter states that she was going to get a barium swallow, but this was put on hold due to some of her other medical issues and difficulty with standing for long periods of time. The report from the ED physician last night was that the CT showed evidence of a distal small-bowel obstruction. The ED physician did not mention any physical exam findings of a hernia. The patient denies any groin pain, but as soon as I palpated her right groin she jumped and pain. She does not give a very accurate history of noticing a bulge or pain in the groin prior to these symptoms that brought her to the emergency department. An NG-tube was placed in the emergency department. She was then admitted to the hospital for further treatment. Review of Systems Review of Systems: All systems reviewed & are unremarkable except as noted in HPI and below Constitutional: Constitutional: Denies chills and Denies fever(s) Gastrointestinal: Gastrointestinal: Reports as per HPI [facility] Past Medical
--- NOTE | 2020-11-14 15:07 | WPDHPUPDATE1 ---
History and Physical Update Update Date/Time: 11/14/20 15:07 History and Physical has been reviewed, including an updated exam of the patient. There are NO changes in the patient's condition. Risks, benefits, and alternatives have been discussed and questions answered. Patient agrees to proceed with procedure.
--- NOTE | 2020-11-14 15:08 | WPDANESEPPF ---
Anes - Initial Pre Proc Eval Procedure: Operation Date: 11/14/20 16:00 Proposed Procedures p Incarcerated Right Inguinal Hernia Repair, - Kevan Floyd DO s Possible Bowel Ressection - Kevan Floyd DO Date/Time: 11/14/20 15:08 Surgeon: Rich Fernando MD Pre Op Diagnosis: Small Bowell Obstruction Patient Data Age: 75 Gender: F Height: 5 ft 2 in Weight: 60.9 kg Last Vital Signs Temp 36.8 C 11/14/20 15:01 Pulse 77 11/14/20 15:01 Resp 18 11/14/20 15:01 BP 123/62 11/14/20 15:01 Pulse Ox 92 11/14/20 15:01 Allergies Allergy/AdvReac Type Severity Reaction Status Date / Time codeine Allergy Unknown Vomiting Verified 11/14/20 15:11 losartan Allergy Unknown unk Verified 11/14/20 15:11 timolol Allergy Unknown Shortness Verified 11/14/20 15:11 of breat amoxicillin [From Augmentin] AdvReac Nausea and Verified 11/14/20 15:11 Vomiting clavulanic acid AdvReac Nausea and Verified 11/14/20 15:11 [From Augmentin] Vomiting Home Medications Medication Instructions Recorded Confirmed Type albuterol sulfate 90 mcg/actuation 1 inhalation INHALATION Q4H PRN 07/12/19 11/14/20 History aerosol inhaler calcium carb-vit D3-minerals 600 1 tablet PO DAILY 07/12/19 11/14/20 History mg calcium-200 unit tablet dorzolamide 2 % eye drops 1 drop EACH EYE TID 07/12/19 11/14/20 History ergocalciferol (vitamin D2) 1,250 1,250 mcg PO WEEKLY 07/12/19 11/14/20 History mcg (50,000 unit) capsule Ocuvite Adult 50 Plus 1 cap PO DAILY 08/28/20 11/14/20 History diltiazem HCl 120 mg capsule,24 120 mg PO DAILY #30 cap 09/26/20 11/14/20 Rx hr,extended release magnesium carbonate 250 mg capsule 250 mg PO TID cap 10/16/20 11/14/20 History Breo Ellipta 100 inh INHALATION DAILY 10/21/20 11/14/20 History lisinopril 20 mg PO DAILY 10/22/20 11/14/20 History hydrochlorothiazide 25 mg PO QAM #30 tablet 10/23/20 11/14/20 Rx alprazolam 0.25 mg PO TID PRN 11/14/20 11/14/20 History citalopram 10 mg PO DAILY 11/14/20 11/14/20 History diltiazem HCl [Tiadylt ER] 120 mg PO DAILY 11/14/20 11/14/20 History lisinopril 20 mg PO DAILY 11/14/20 11/14/20 History Laboratory Tests 11/13/20 11/13/20 11/14/20 19:34 19:34 05:17 WBC 16.1 K/mm3 H K/mm3 13.3 K/mm3 H K/mm3 (4.5-10.0) (4.5-10.0) RBC 4.97 M/mm3 M/mm3 4.44 M/mm3 M/mm3 (4.2-5.4) (4.2-5.4) Hgb 16.1 g/dL H g/dL 14.7 g/dL g/dL (12.0-15.0) (12.0-15.0) Hct 49.1 % H % 44.3 % % (37.0-47.0) (37.0-47.0) MCV 98.8 fl fl 99.8 fl fl (80-100) (80-100) MCH 32.4 pg pg 33.1 pg pg (26-34) (26-34) MCHC 32.8 g/dl g/dl 33.2 g/dl g/dl (32-36) (32-36) RDW 12.8 % % 12.9 % % (11.5-14.5) (11.5-14.5) Plt Count 341 k/mm3 k/mm3 303 k/mm3 k/mm3 (150-375) (150-375) MPV 8.8 fl fl 9.6 fl fl (7.4-10.4) (7.4-10.4) Immature Gran % (Auto) 0.2 % % 0.5 % % (0-0.5) (0-0.5) Neut % (Auto) 90.1 % H % 85.4 % H % (45.5-73.1) (45.5-73.1) Lymph % (Auto) 2.2 % L % 4.1 % L % (18.3-44.2) (18.3-44.2) [place] % (Auto) 7.0 % % 9.2 % H % (2.6-8.5) (2.6-8.5) Eos % (Auto) 0.1 % % 0.5 % % (0-4.4) (0-4.4) Baso % (Auto) 0.4 % % 0.3 % % (0.2-1.2) (0.2-1.2) Lymph # (Auto) 0.35 K/mm3 L K/mm3 0.55 K/mm3 L K/mm3 (0.9-3.2) (0.9-3.2) [place] # (Auto) 1.1 K/mm3 H K/mm3 1.2 K/mm3 H K/mm3 (0.1-0.6) (0.1-0.6) Eos # (Auto) 0.0 K/mm3 K/mm3 0.1 K/mm3 K/mm3 (0-0.3) (0-0.3) Baso # (Auto) 0.1 K/mm3 K/mm3 0.0 K/mm3 K/mm3 (0.0-0.1) (0.0-0.1) Abs Immat Gran (auto) 0.03 K/mm3 K/mm3 0.06 K/mm3 H K/mm3 (0.00-0.031) (0.00-0.031) Absolute Neuts (auto) 14.5 K/mm3 H K/mm3 11.4 K/mm3 H K/mm3 (1.3-6.7) (1.3-6.7) Absolute Nucleated RBC 0.0 K/mm3 K/mm3 0.0 K/mm3 K/mm3 (0.0-0.012) (0.0-0.012) Nucleated RBC % 0.0 % % 0.0 % % (0.0-0.2) (0.0-0.2) Sodium 131 mmol/L L mmol/L
[2020-11-14] MEDS: LACTATED RINGERS 1,000 ML 30 ML IV CONT ×2 (15:14→17:12)
[2020-11-14] MEDS: ceFAZolin 2 GM/D5W 50 ML 2 GM/50 ML BAG IVPB ×2 (15:28→23:39)
[2020-11-14] MEDS: BUPIVACAINE/EPINEPHRINE 0.5% 10 ML VIAL 50 ML INFILTRATE (16:26)
--- NOTE | 2020-11-14 17:10 | PM.PROC ---
Procedure Note - Detailed Date of procedure: 11/14/20 Pre-op diagnosis: Small Bowell Obstruction, incarcerated [facility] Post-op diagnosis: other (Strangulated right femoral hernia, small-bowel obstruction) Procedure performed: 1. Strangulated right femoral hernia repair 2. Small-bowel (ileum) resection with [id number] anastomosis Description of procedure: Procedure as well as risks, benefits, and alternatives were discussed with the patient. Written consent was obtained and placed in chart prior to procedure. Patient was brought back to surgical suite. She was placed supine on operating table. Time-out was done to confirm patient and procedure. She was then intubated by the Anesthesia Department. Her abdomen was prepped and draped in sterile fashion using chlorhexidine prep. 0.5% bupivacaine with epinephrine was infiltrated locally around the right lower quadrant. A 6 cm oblique incision was made in the right lower quadrant using a 15 blade scalpel. Electrocautery was used for hemostasis and for dissection down through Linus's fascia. The external oblique aponeurosis was identified and was cleared from the surrounding subcutaneous attachments. The external inguinal ring was identified. Incision was made on the external oblique aponeurosis using a 15 blade scalpel. This incision was then extended to the external ring using Metzenbaum scissors. I then carefully inspected the area and identified that the hernia was actually a right femoral hernia and was able to track this down to the femoral space. There is a very tight ring at the femoral space making it difficult to reduce the hernia sac back from the inguinal ligament. Then had to transect the inguinal ligament partially using electrocautery. This opened up the femoral canal wide enough to bring the hernia sac back through the femoral canal and into the inguinal space. The hernia sac was freed up from the surrounding subcutaneous attachments and then the hernia sac was opened using Metzenbaum scissors. There was some dusky appearing omentum initially identified and then just below this was a loop of small bowel that appeared somewhat dusky and ischemic. The omentum was reduced back into the abdominal cavity and then the bowel was carefully delivered through the hernia defect so that it could be further inspected. There did appear to be an area of necrosis along the anti mesenteric surface of the loop of bowel that was within the hernia sac. Decision was made to resect this segment of bowel. This appeared likely to be ileum based on the findings on the CT. A window was created in the mesentery both proximal and distal to the strangulated segment and BECCA 55 mm blue load stapler was advanced across the bowel at each location and the stapler was fired to resect the segment of bowel. The mesenteric attachments were taken down using curved hemostats and Metzenbaum scissors. 0 Vicryl ties were then used to ligate the mesentery. The specimen was removed and sent to the lab for pathology. The 2 ends of the bowel appeared healthy and viable. Enterotomies were made on the antimesenteric surface he is electrocautery and the other BECCA 55 mm stapler was advanced through each enterotomy and bowels clamped together [id number] fashion and the stapler was fired. This created our anastomosis. The anastomosis carefully inspected and appeared healthy and viable. The enterotomy was then closed using a TLC 60 mm stapler. The staple line was then reinforced at the apex and anterior surface using 3 0 silk seromuscular imbricating sutures. The mesenteric rent was then also closed using 3 0 silk [id number] sutures. The anastomosis was palpated and appeared healthy and viable widely patent. The bowel was then reduced back through the hernia defect into the abdominal cavity. The hernia sac was then ligated with an 0 Vicryl tie and the excess hernia sac was excised and sent to the lab for pathology. A Jonas's repair was th
--- NOTE | 2020-11-14 19:03 | PC.NURSE ---
Returned from OR per bed. Report received from JOAN Davis.
--- NOTE | 2020-11-14 19:18 | SUR.PHASEI ---
PT TEACHING FOR INSENTIVE SPIROMETER PER DR VASQUEZ. PT THEN PRODUCED SEVERAL MUCOUS PLUGS FROM UPPER AIRWAY AND LESS O2 WAS NEEDED TO RETURN TO BASELINE O2 LEVELS.
[2020-11-15] VITALS (13 sets, daily range): BP systolic 107–136; BP diastolic 49–65; PULSE 68–80; RESP 16–20; TEMP 36.1–36.6; O2SAT 91–98
[2020-11-15 05:28] LABS: Basophils Percent Auto 0.2 % (0.2-1.2); Hematocrit 39.5 % (37.0-47.0); Hemoglobin 12.5 g/dL (12.0-15.0); Immature Granulocyte Absolute 0.04 K/mm3 (0.00-0.031); Immature Granulocyte Percent A 0.3 % (0-0.5); Lymphocytes Absolute Auto 0.52 K/mm3 (0.9-3.2); Lymphocytes Percent Auto 4.1 % (18.3-44.2); Mean Corpuscular HGB Conc 31.6 g/dl (32-36); Mean Corpuscular Hemoglobin 32.5 pg (26-34); Mean Corpuscular Volume 102.6 fl (80-100); Mean Platelet Volume 9.2 fl (7.4-10.4); Monocytes Percent Auto 7.7 % (2.6-8.5); Neutrophils Absolute Auto 11.1 K/mm3 (1.3-6.7); Neutrophils Percent Auto 87.7 % (45.5-73.1); Platelet Count Result 239 k/mm3 (150-375); Red Blood Count 3.85 M/mm3 (4.2-5.4); Red Cell Distribution Width 12.8 % (11.5-14.5); White Blood Count 12.7 K/mm3 (4.5-10.0)
[2020-11-15 05:58] LABS: Alanine Aminotransferase 17 U/L (4-35); Albumin Level 3.1 g/dL (3.5-5.1); Alkaline Phosphatase 45 U/L (38-126); Anion Gap 7 mmol/L (8-16); Aspartate Amino Transferase 35 U/L (14-36); Bilirubin,Total 0.3 mg/dL (0.2-1.3); Blood Urea Nitrogen 34 mg/dL (7-17); Calcium 8.6 mg/dL (8.4-10.2); Carbon Dioxide 33 mmol/L (22-30); Chloride 97 mmol/L (98-107); Estimated CRCL calculation 26 ml/min; Estimated Glomerular Filt Rate 40; Glucose 103 mg/dL (65-105); Potassium 4.2 mmol/L (3.4-5.0); Sodium 137 mmol/L (137-145)
[2020-11-15] MEDS: DORZOLAMIDE HCL 2% OPHTH DROPS 1 DROP EACH EYE ×3 (08:36→16:57)
[2020-11-15] MEDS: ceFAZolin 2 GM/D5W 50 ML 2 GM/50 ML BAG IVPB ×2 (08:36→16:58)
[2020-11-15] MEDS: HEPARIN SODIUM 5,000 UNITS/ML VIAL 5000 UNITS SUB-Q ×2 (08:36→20:14)
[2020-11-15] MEDS: PHENOL/SOD PHENO SPRAY CHERRY (*BKC) 1 SPRAY MUCOUS MEM (08:37)
--- NOTE | 2020-11-15 09:55 | PM.PNGS ---
Progress Note: A&P Assessment and Plan (1) Strangulated femoral hernia: Code(s): K41.30 - Unilateral femoral hernia, with obstruction, without gangrene, not specified as recurrent Status: Acute Assessment and Plan: Doing well on postop day 1. Remove Caldera and NG tube today. Start clear liquids. Increase activity. (2) Acute renal failure: Code(s): N17.9 - Acute kidney failure, unspecified Status: Acute Assessment and Plan: Continue IV fluids today, monitor for return of baseline kidney function (3) Small bowel obstruction: Code(s): K56.609 - Unspecified intestinal obstruction, unspecified as to partial versus complete obstruction Status: Acute Subjective Subjective Date/Time Seen: 11/15/20 09:55 Interval history: Patient states she is hungry. Passing a little flatus. No BM yet. Minimal pain. Has not been out of bed yet. Exam GI: Inspection: distended and incision (Clean/dry/intact) GI Palp: Yes Soft to palpation and No Tenderness to palpation present (GI) Auscultation: normal bowel sounds Objective Data Vital Signs Vital Signs: Vital Signs - 24 hr 11/14/20 12:00 11/14/20 14:00 11/14/20 14:54 Temperature 37.2 C Pulse Rate 74 82 Respiratory Rate 20 Blood Pressure 123/53 L Pulse Oximetry 92 92 11/14/20 15:01 11/14/20 17:12 11/14/20 17:15 Temperature 36.8 C 37.3 C Pulse Rate 77 85 84 Respiratory Rate 18 22 H 17 Blood Pressure 123/62 138/62 128/58 L Pulse Oximetry 92 98 97 11/14/20 17:30 11/14/20 17:45 11/14/20 18:00 Temperature Pulse Rate 88 84 87 Respiratory Rate 22 H 20 20 Blood Pressure 125/65 140/65 142/77 H Pulse Oximetry 94 95 95 11/14/20 18:15 11/14/20 18:30 11/14/20 18:45 Temperature Pulse Rate 74 68 66 Respiratory Rate 19 20 19 Blood Pressure 123/62 126/66 122/58 L Pulse Oximetry 92 94 96 11/14/20 19:05 11/14/20 19:31 11/14/20 19:35 Temperature 36.8 C 36.1 C L Pulse Rate 70 16 L Respiratory Rate 14 92 H Blood Pressure 111/52 L 107/55 L Pulse Oximetry 92 92 70 L 11/14/20 20:00 11/14/20 20:30 11/14/20 21:44 Temperature 36.1 C L Pulse Rate 68 16 L 69 Respiratory Rate 98 H Blood Pressure 105/50 L Pulse Oximetry 71 L 94 11/15/20 00:00 11/15/20 00:01 11/15/20 04:00 Temperature 36.1 C L Pulse Rate 80 80 68 Respiratory Rate 20 Blood Pressure 120/53 L Pulse Oximetry 98 11/15/20 04:35 Temperature 36.4 C Pulse Rate 74 Respiratory Rate 18 Blood Pressure 126/63 Pulse Oximetry 92 Intake/Output Intake/Output: Intake & Output 11/12/20 11/13/20 11/14/20 11/15/20 23:59 23:59 23:59 23:59 Intake Total 2300 150 Output Total 1200 1100 400 Balance -1200 1200 -250 Meds/Results Medications: Active Medications Generic Name Dose Route Start Last Admin Trade Name Freq PRN Reason Stop Dose Admin Albuterol 1 puff 11/14/20 02:03 Albuterol Sulfate (*Sp) Aerosol 1 Puff INHALATION Q4H PRN Shortness Of Breath Alprazolam 0.25 mg 11/14/20 02:03 Alprazolam (*Crx) 0.25 Mg Tablet PO TID PRN Anxiety Budesonide/Formoterol Fumarate 2 puff 11/14/20 08:00 11/15/20 08:37 Budesonide/Form 160-4.5 Mcg (*Sp) INHALATION 2 puff Q12HRT MASSIMO Administration Calcium Carbonate 500 mg 11/14/20 09:00 11/14/20 16:27 Calcium/Vitamin D 500 Mg Tablet PO Not Given QAM MASSIMO Diltiazem HCl 120 mg 11/14/20 09:00 11/14/20 16:27 Diltiazem Hcl Cd 120 Mg Cap.Sa.24h PO Not Given DAILY MASSIMO Dorzolamide HCl 1 drop 11/14/20 09:00 11/15/20 08:36 Dorzolamide Hcl 2% Ophth Drops EACH EYE 1 drop TID MASSIMO Administration Heparin Sodium (Porcine) 5,000 units 11/14/20 09:00 11/15/20 08:36 Heparin Sodium 5,000 Units/Ml Vial SUB-Q 5,000 units Q12HR MASSIMO Administration Hydralazine HCl 10 mg 11/14/20 15:47 Hydralazine Hcl 20 Mg/Ml Vial IV PUSH Q8H PRN Blood Pressure - High Sodium Chloride 1,000 mls @ 80 mls/hr
--- NOTE | 2020-11-15 10:24 | WPDANESPN ---
Anes - Prog Note Post-Op Date/Time: 11/15/20 10:24 Cardiovascular status: normal Respiratory status: normal Airway patency: baseline Mental status: baseline Post-Op hydration status: normal Vital Signs: Last Vital Signs Temp 36.4 C L 11/15/20 10:00 Pulse 74 11/15/20 10:00 Resp 18 11/15/20 10:00 BP 121/54 L 11/15/20 10:00 Pulse Ox 96 11/15/20 10:00 Pain Score (VAS): 10 I/O: Intake & Output 11/14/20 11/15/20 11/15/20 23:59 07:59 15:59 Intake Total 1300 150 Output Total 400 400 Balance 900 -250 Laboratory Tests 11/15/20 05:08 11/15/20 05:08 11/15/20 11/15/20 05:08 05:08 WBC 12.7 H RBC 3.85 L Hgb 12.5 Hct 39.5 MCV 102.6 H MCH 32.5 MCHC 31.6 L RDW 12.8 Plt Count 239 MPV 9.2 Immature Gran % (Auto) 0.3 Neut % (Auto) 87.7 H Lymph % (Auto) 4.1 L [place] % (Auto) 7.7 Eos % (Auto) 0.0 Baso % (Auto) 0.2 Lymph # (Auto) 0.52 L [place] # (Auto) 1.0 H Eos # (Auto) 0.0 Baso # (Auto) 0.0 Abs Immat Gran (auto) 0.04 H Absolute Neuts (auto) 11.1 H Absolute Nucleated RBC 0.0 Nucleated RBC % 0.0 Sodium 137 Potassium 4.2 Chloride 97 L Carbon Dioxide 33 H Anion Gap 7 L BUN 34 H Creatinine 1.30 H Estim Creat Clear Calc 26 Estimated GFR 40 L Glucose 103 Calcium 8.6 Magnesium 2.0 Total Bilirubin 0.3 AST 35 ALT 17 Alkaline Phosphatase 45 Total Protein 6.0 L Albumin 3.1 L Post-procedural complaints: none Patient Feedback: Patient satisfied with anesthetic care.
[2020-11-15] MEDS: SODIUM CHLORIDE 0.9% IV 1,000 ML 80 ML IV CONT (14:13)
--- NOTE | 2020-11-15 15:45 | P.PNIM_ITS ---
Progress Note: A&P Assessment and Plan (1) Small bowel obstruction: Code(s): K56.609 - Unspecified intestinal obstruction, unspecified as to partial versus complete obstruction Status: Acute Assessment and Plan: * Ct Shows: Distal small bowel obstruction * Patient came in for nausea and vomiting * bowel rest * NG decompression, DC'd * general surgery consult thank you * Bowel resection yesterday 11/14/20 * NS at 80ml/hr * pain control-Morphine 2-4mg IV Q2hr PRN * Zofran 4mg IV Q4hr * Clear liquid diet * Cefazolin 2gm Q8 (2) Hypertension: Qualifiers: Hypertension type: essential hypertension Qualified Code(s): I10 - Essential (primary) hypertension Code(s): I10 - Essential (primary) hypertension Status: Acute Assessment and Plan: * Blood pressure 107/49 * Trend blood pressure * Hold PO Lisinopril 20mg PO, hydrochlorothiazide 25 mg p.o. daily, * Will add hydralizine 10mg PRN with parameters (3) PVT (paroxysmal ventricular tachycardia): Code(s): I47.2 - Ventricular tachycardia Status: Acute Assessment and Plan: * Currently SR in 70s * cardizem 120mg PO on hold * Will add an agent if patient becomes tachycardic or goes into an arrhythmia (4) PAT (paroxysmal atrial tachycardia): Code(s): I47.1 - Supraventricular tachycardia Status: Acute Assessment and Plan: * See above (5) Chronic obstructive pulmonary disease: Qualifiers: COPD type: unspecified COPD Qualified Code(s): J44.9 - Chronic obstructive pulmonary disease, unspecified Code(s): J44.9 - Chronic obstructive pulmonary disease, unspecified Status: Acute Assessment and Plan: * Wheezes on exam * Albuterol breathing treatments ordered * Continue home Symbicort (6) Hypersomnia: Code(s): G47.10 - Hypersomnia, unspecified Status: Acute (7) Tobacco abuse: Code(s): Z72.0 - Tobacco use Status: Acute Assessment and Plan: * Educated patient about smoking cassation * Offered patient a smoking patch (8) Acute renal failure: Code(s): N17.9 - Acute kidney failure, unspecified Status: Acute Assessment and Plan: * cr 1.3, * baseine is normal. * iv hydration. * hold diuretics. 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 * CT 2020 with chronic colasep fo right middle lobe (11) Lung nodule: Code(s): R91.1 - Solitary pulmonary nodule Status: Acute Assessment and Plan: * follow up as out patient (12) Leukocytosis: Qualifiers: Leukocytosis type: unspecified Qualified Code(s): D72.829 - Elevated white blood cell count, unspecified Code(s): D72.829 - Elevated white blood cell count, unspecified Status: Acute Assessment and Plan: * WBC is 12.7 * Trend labs * Labs in the am Time Spent With Patient Time with patient: 25 - 35 minutes Subje
--- NOTE | 2020-11-15 15:45 | PM.IMPN ---
Progress Note: A&P Assessment and Plan (1) Small bowel obstruction: Code(s): K56.609 - Unspecified intestinal obstruction, unspecified as to partial versus complete obstruction Status: Acute Assessment and Plan: Ct Shows: Distal small bowel obstruction Patient came in for nausea and vomiting bowel rest NG decompression, DC'd general surgery consult thank you Bowel resection yesterday 11/14/20 NS at 80ml/hr pain control-Morphine 2-4mg IV Q2hr PRN Zofran 4mg IV Q4hr Clear liquid diet Cefazolin 2gm Q8 (2) Hypertension: Qualifiers: Hypertension type: essential hypertension Qualified Code(s): I10 - Essential (primary) hypertension Code(s): I10 - Essential (primary) hypertension Status: Acute Assessment and Plan: Blood pressure 107/49 Trend blood pressure Hold PO Lisinopril 20mg PO, hydrochlorothiazide 25 mg p.o. daily, Will add hydralizine 10mg PRN with parameters (3) PVT (paroxysmal ventricular tachycardia): Code(s): I47.2 - Ventricular tachycardia Status: Acute Assessment and Plan: Currently SR in 70s cardizem 120mg PO on hold Will add an agent if patient becomes tachycardic or goes into an arrhythmia (4) PAT (paroxysmal atrial tachycardia): Code(s): I47.1 - Supraventricular tachycardia Status: Acute Assessment and Plan: See above (5) Chronic obstructive pulmonary disease: Qualifiers: COPD type: unspecified COPD Qualified Code(s): J44.9 - Chronic obstructive pulmonary disease, unspecified Code(s): J44.9 - Chronic obstructive pulmonary disease, unspecified Status: Acute Assessment and Plan: Wheezes on exam Albuterol breathing treatments ordered Continue home Symbicort (6) Hypersomnia: Code(s): G47.10 - Hypersomnia, unspecified Status: Acute (7) Tobacco abuse: Code(s): Z72.0 - Tobacco use Status: Acute Assessment and Plan: Educated patient about smoking cassation Offered patient a smoking patch (8) Acute renal failure: Code(s): N17.9 - Acute kidney failure, unspecified Status: Acute Assessment and Plan: cr 1.3, baseine is normal. iv hydration. hold diuretics. 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 CT 2020 with chronic colasep fo right middle lobe (11) Lung nodule: Code(s): R91.1 - Solitary pulmonary nodule Status: Acute Assessment and Plan: follow up as out patient (12) Leukocytosis: Qualifiers: Leukocytosis type: unspecified Qualified Code(s): D72.829 - Elevated white blood cell count, unspecified Code(s): D72.829 - Elevated white blood cell count, unspecified Status: Acute Assessment and Plan: WBC is 12.7 Trend labs Labs in the am Time Spent With Patient Time with patient: 25 - 35 minutes Subjective Date/time seen: 11/15/20 14:35 Patient 75-year-old female with a past medical history of asthma, GERD, and COPD who presents to the emergency department with chief complaint of abdominal pain and nausea, vomiting. CT findings included a bowel obstruction. Patient stated that she is feeling a lot better today. She is was really excited to get the NG tube taken out and be able to get for clear liquids. She also stated that she is able to pass gas and that the pain is better in her stomach. Patient denies nausea vomiting she also denies the further pain in her throat from the NG tube. Currently the patient states that she has not have any issues with shortness of breat
[2020-11-16] VITALS (12 sets, daily range): BP systolic 132–144; BP diastolic 61–70; PULSE 68–85; RESP 16–20; TEMP 36.3–36.9; O2SAT 85–96
[2020-11-16] MEDS: SODIUM CHLORIDE 0.9% IV 1,000 ML 80 ML IV CONT (05:26)
[2020-11-16 05:43] LABS: Hematocrit 38.5 % (37.0-47.0); Hemoglobin 12.3 g/dL (12.0-15.0); Mean Corpuscular HGB Conc 31.9 g/dl (32-36); Mean Corpuscular Hemoglobin 32.9 pg (26-34); Mean Corpuscular Volume 102.9 fl (80-100); Mean Platelet Volume 9.5 fl (7.4-10.4); Platelet Count Result 221 k/mm3 (150-375); Red Blood Count 3.74 M/mm3 (4.2-5.4); Red Cell Distribution Width 12.7 % (11.5-14.5); White Blood Count 11.9 K/mm3 (4.5-10.0)
[2020-11-16 06:03] LABS: Alanine Aminotransferase 11 U/L (4-35); Alkaline Phosphatase 49 U/L (38-126); Anion Gap 2 mmol/L (8-16); Aspartate Amino Transferase 29 U/L (14-36); Bilirubin,Total 0.4 mg/dL (0.2-1.3); Blood Urea Nitrogen 18 mg/dL (7-17); Calcium 8.5 mg/dL (8.4-10.2); Carbon Dioxide 33 mmol/L (22-30); Chloride 99 mmol/L (98-107); Estimated CRCL calculation 46 ml/min; Estimated Glomerular Filt Rate > 60; Glucose 91 mg/dL (65-105); Magnesium 1.8 mg/dL (1.6-2.3); Potassium 3.9 mmol/L (3.4-5.0); Sodium 134 mmol/L (137-145)
[2020-11-16] MEDS: DORZOLAMIDE HCL 2% OPHTH DROPS 1 DROP EACH EYE ×3 (08:31→17:55)
[2020-11-16] MEDS: HEPARIN SODIUM 5,000 UNITS/ML VIAL 5000 UNITS SUB-Q ×2 (08:32→21:18)
--- NOTE | 2020-11-16 11:10 | P.PNIM_ITS ---
Progress Note: A&P Assessment and Plan (1) Small bowel obstruction: Code(s): K56.609 - Unspecified intestinal obstruction, unspecified as to partial versus complete obstruction Status: Acute Assessment and Plan: * Ct Shows: Distal small bowel obstruction * Patient came in for nausea and vomiting * bowel rest * NG decompression, DC'd * general surgery consult thank you * Bowel resection yesterday 11/14/20 * NS at 80ml/hr--DC'd * pain control-Morphine 2-4mg IV Q2hr PRN * Zofran 4mg IV Q4hr * Diet advanced to Full liquids * Cefazolin 2gm Q8 * PT/OT (2) Hypertension: Qualifiers: Hypertension type: essential hypertension Qualified Code(s): I10 - Essential (primary) hypertension Code(s): I10 - Essential (primary) hypertension Status: Acute Assessment and Plan: * Blood pressure 144/68 * Trend blood pressure * Hold PO Lisinopril 20mg PO, hydrochlorothiazide 25 mg p.o. daily, * Will add hydralizine 10mg PRN with parameters (3) PVT (paroxysmal ventricular tachycardia): Code(s): I47.2 - Ventricular tachycardia Status: Acute Assessment and Plan: * Currently SR in 70s * cardizem 120mg PO on hold * Will add an agent if patient becomes tachycardic or goes into an arrhythmia (4) PAT (paroxysmal atrial tachycardia): Code(s): I47.1 - Supraventricular tachycardia Status: Acute Assessment and Plan: * See above (5) Chronic obstructive pulmonary disease: Qualifiers: COPD type: unspecified COPD Qualified Code(s): J44.9 - Chronic obstructive pulmonary disease, unspecified Code(s): J44.9 - Chronic obstructive pulmonary disease, unspecified Status: Acute Assessment and Plan: * Wheezes on exam * Albuterol breathing treatments ordered * Continue home Symbicort (6) Hypersomnia: Code(s): G47.10 - Hypersomnia, unspecified Status: Acute (7) Tobacco abuse: Code(s): Z72.0 - Tobacco use Status: Acute Assessment and Plan: * Educated patient about smoking cassation * Offered patient a smoking patch (8) Acute renal failure: Code(s): N17.9 - Acute kidney failure, unspecified Status: Acute Assessment and Plan: * cr 1.3, * baseine is normal. * iv hydration. * hold diuretics. 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 * CT 2020 with chronic colasep fo right middle lobe (11) Lung nodule: Code(s): R91.1 - Solitary pulmonary nodule Status: Acute Assessment and Plan: * follow up as out patient (12) Leukocytosis: Qualifiers: Leukocytosis type: unspecified Qualified Code(s): D72.829 - Elevated white blood cell count, unspecified Code(s): D72.829 - Elevated white blood cell count, unspecified Status: Acute Assessment and Plan: * WBC is 11.9 * Trend labs * Labs in the am Subjective Date/time seen: 11/16/20 10:30
--- NOTE | 2020-11-16 11:10 | PM.IMPN ---
Progress Note: A&P Assessment and Plan (1) Small bowel obstruction: Code(s): K56.609 - Unspecified intestinal obstruction, unspecified as to partial versus complete obstruction Status: Acute Assessment and Plan: Ct Shows: Distal small bowel obstruction Patient came in for nausea and vomiting bowel rest NG decompression, DC'd general surgery consult thank you Bowel resection yesterday 11/14/20 NS at 80ml/hr--DC'd pain control-Morphine 2-4mg IV Q2hr PRN Zofran 4mg IV Q4hr Diet advanced to Full liquids Cefazolin 2gm Q8 PT/OT (2) Hypertension: Qualifiers: Hypertension type: essential hypertension Qualified Code(s): I10 - Essential (primary) hypertension Code(s): I10 - Essential (primary) hypertension Status: Acute Assessment and Plan: Blood pressure 144/68 Trend blood pressure Hold PO Lisinopril 20mg PO, hydrochlorothiazide 25 mg p.o. daily, Will add hydralizine 10mg PRN with parameters (3) PVT (paroxysmal ventricular tachycardia): Code(s): I47.2 - Ventricular tachycardia Status: Acute Assessment and Plan: Currently SR in 70s cardizem 120mg PO on hold Will add an agent if patient becomes tachycardic or goes into an arrhythmia (4) PAT (paroxysmal atrial tachycardia): Code(s): I47.1 - Supraventricular tachycardia Status: Acute Assessment and Plan: See above (5) Chronic obstructive pulmonary disease: Qualifiers: COPD type: unspecified COPD Qualified Code(s): J44.9 - Chronic obstructive pulmonary disease, unspecified Code(s): J44.9 - Chronic obstructive pulmonary disease, unspecified Status: Acute Assessment and Plan: Wheezes on exam Albuterol breathing treatments ordered Continue home Symbicort (6) Hypersomnia: Code(s): G47.10 - Hypersomnia, unspecified Status: Acute (7) Tobacco abuse: Code(s): Z72.0 - Tobacco use Status: Acute Assessment and Plan: Educated patient about smoking cassation Offered patient a smoking patch (8) Acute renal failure: Code(s): N17.9 - Acute kidney failure, unspecified Status: Acute Assessment and Plan: cr 1.3, baseine is normal. iv hydration. hold diuretics. 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 CT 2020 with chronic colasep fo right middle lobe (11) Lung nodule: Code(s): R91.1 - Solitary pulmonary nodule Status: Acute Assessment and Plan: follow up as out patient (12) Leukocytosis: Qualifiers: Leukocytosis type: unspecified Qualified Code(s): D72.829 - Elevated white blood cell count, unspecified Code(s): D72.829 - Elevated white blood cell count, unspecified Status: Acute Assessment and Plan: WBC is 11.9 Trend labs Labs in the am Subjective Date/time seen: 11/16/20 10:30 Patient 75-year-old female with a past medical history of asthma, GERD, and COPD who presents to the emergency department with chief complaint of abdominal pain and nausea, vomiting. CT findings included a bowel obstruction. Patient stated that she is feeling a lot better today. She was also stating that she was going home today. I explained to her that I thought it might be a little early and that I would need to check with Dr. Floyd. Patient was just advanced to full liquids. She is also on 0.5 L of oxygen. Patient stated that she did not have any pain in her abdomen, but does have pressure. Patient did get very anxious while I was examining her. She stated, I
--- NOTE | 2020-11-16 11:48 | PM.PNGS ---
Progress Note: A&P Assessment and Plan (1) Strangulated femoral hernia: Code(s): K41.30 - Unilateral femoral hernia, with obstruction, without gangrene, not specified as recurrent Status: Acute Assessment and Plan: Advance to full liquid diet. Increase activity. (2) Acute renal failure: Code(s): N17.9 - Acute kidney failure, unspecified Status: Acute Assessment and Plan: Renal function improved. Stop IV fluids. (3) Small bowel obstruction: Code(s): K56.609 - Unspecified intestinal obstruction, unspecified as to partial versus complete obstruction Status: Acute Subjective Subjective Date/Time Seen: 11/16/20 11:48 Interval history: Passing flatus and tolerating clear liquids. No bowel movement yet. Pain well controlled. No nausea or vomiting. Exam GI: Inspection: distended and incision (Clean/dry/intact) GI Palp: Yes Soft to palpation and No Tenderness to palpation present (GI) Auscultation: normal bowel sounds Objective Data Vital Signs Vital Signs: Vital Signs - 24 hr 11/15/20 12:00 11/15/20 14:00 11/15/20 16:00 Temperature 36.4 C Pulse Rate 76 68 73 Respiratory Rate 18 Blood Pressure 107/49 L Pulse Oximetry 96 11/15/20 20:00 11/15/20 20:26 11/15/20 22:00 Temperature 36.6 C Pulse Rate 76 70 Respiratory Rate 16 Blood Pressure 136/65 Pulse Oximetry 96 94 11/16/20 00:00 11/16/20 04:00 11/16/20 06:00 Temperature 36.6 C Pulse Rate 82 79 73 Respiratory Rate 18 Blood Pressure 144/68 H Pulse Oximetry 95 11/16/20 08:00 11/16/20 08:30 11/16/20 08:35 Temperature Pulse Rate 73 Respiratory Rate Blood Pressure Pulse Oximetry 92 92 11/16/20 09:00 Temperature Pulse Rate Respiratory Rate Blood Pressure Pulse Oximetry 85 L Intake/Output Intake/Output: Intake & Output 11/13/20 11/14/20 11/15/20 11/16/20 23:59 23:59 23:59 23:59 Intake Total 2300 2500 1960 Output Total 1200 5345 315 7197 Balance -1200 1200 2000 910 Meds/Results Medications: Active Medications Generic Name Dose Route Start Last Admin Trade Name Freq PRN Reason Stop Dose Admin Hydrocodone Bitart/Acetaminophen 1 tab 11/16/20 10:15 Hydrocodone/Acetaminophen (*Crx) 5-325 Mg Tablet PO Q4H PRN Pain Rated 4-6 Albuterol 1 puff 11/14/20 02:03 Albuterol Sulfate (*Sp) Aerosol 1 Puff INHALATION Q4H PRN Shortness Of Breath Alprazolam 0.25 mg 11/14/20 02:03 Alprazolam (*Crx) 0.25 Mg Tablet PO TID PRN Anxiety Budesonide/Formoterol Fumarate 2 puff 11/14/20 08:00 11/16/20 08:31 Budesonide/Form 160-4.5 Mcg (*Sp) INHALATION 2 puff Q12HRT [facility] Administration Calcium Carbonate 500 mg 11/14/20 09:00 11/14/20 16:27 Calcium/Vitamin D 500 Mg Tablet PO Not Given QAM [facility] Diltiazem HCl 120 mg 11/14/20 09:00 11/14/20 16:27 Diltiazem Hcl Cd 120 Mg Cap.Sa.24h PO Not Given DAILY [facility] Dorzolamide HCl 1 drop 11/14/20 09:00 11/16/20 08:31 Dorzolamide Hcl 2% Ophth Drops EACH EYE 1 drop TID [facility] Administration Heparin Sodium (Porcine) 5,000 units 11/14/20 09:00 11/16/20 08:32 Heparin Sodium 5,000 Units/Ml Vial SUB-Q 5,000 units Q12HR [facility] Administration Hydralazine HCl 10 mg 11/14/20 15:47 Hydralazine Hcl 20 Mg/Ml Vial IV PUSH Q8H PRN Blood Pressure - High Melatonin 5 mg 11/16/20 21:00 Melatonin 5 Mg Tablet PO HS [facility] Morphine Sulfate 2 mg 11/14/20 18:50 Morphine Sulfate (*Crx) 2 Mg/Ml Inj IV PUSH Q2H PRN Pain Rated 4-6 Morphine Sulfate 4 mg 11/14/20 18:50 Morphine Sulfate (*Crx) 4 Mg/Ml Inj IV PUSH Q2H PRN Pain Rated 7-10 Multivitamins/Minerals 1 tablet 11/14/20 09:00 11/14/20 16:27 Opti-Gen Tab PO Not Given QAM [facility] Ondansetron HCl 4 mg 11/13/20 23:09 Ondansetron Inj 4 Mg/2 Ml Vial IV PUSH Q4H PRN Nausea Phenol 1 spray 11/14/20 13:00 11/15/20 08:37 Ph
--- NOTE | 2020-11-16 13:41 | WPDANESPN ---
Anes - Prog Note Post-Op Date/Time: 11/16/20 13:41 Cardiovascular status: normal Respiratory status: normal Airway patency: baseline Mental status: baseline Post-Op hydration status: normal Vital Signs: Last Vital Signs Temp 36.6 C 11/16/20 06:00 Pulse 77 11/16/20 12:00 Resp 18 11/16/20 06:00 BP 144/68 H 11/16/20 06:00 Pulse Ox 85 L 11/16/20 09:00 Pain Score (VAS): 06/22 I/O: Intake & Output 11/15/20 11/16/20 11/16/20 23:59 07:59 15:59 Intake Total 480 1600 360 Output Total 100 1050 Balance 380 550 360 Laboratory Tests 11/16/20 05:13 11/16/20 05:13 11/16/20 11/16/20 05:13 05:13 WBC 11.9 H RBC 3.74 L Hgb 12.3 Hct 38.5 MCV 102.9 H MCH 32.9 MCHC 31.9 L RDW 12.7 Plt Count 221 MPV 9.5 Sodium 134 L Potassium 3.9 Chloride 99 Carbon Dioxide 33 H Anion Gap 2 L BUN 18 H D Creatinine 0.70 Estim Creat Clear Calc 46 Estimated GFR > 60 Glucose 91 Calcium 8.5 Magnesium 1.8 Total Bilirubin 0.4 AST 29 ALT 11 Alkaline Phosphatase 49 Total Protein 6.0 L Albumin 3.0 L Post-procedural complaints: none Patient Feedback: Patient satisfied with anesthetic care.
[2020-11-16] MEDS: MELATONIN 5 MG TABLET PO (21:18)
[2020-11-17] VITALS (7 sets, daily range): BP systolic 140; BP diastolic 62; PULSE 71–82; RESP 16; TEMP 36.3; O2SAT 92–95
[2020-11-17 06:05] LABS: Hematocrit 36.6 % (37.0-47.0); Hemoglobin 11.7 g/dL (12.0-15.0); Mean Corpuscular Hemoglobin 32.6 pg (26-34); Mean Corpuscular Volume 101.9 fl (80-100); Mean Platelet Volume 9.7 fl (7.4-10.4); Platelet Count Result 217 k/mm3 (150-375); Red Blood Count 3.59 M/mm3 (4.2-5.4); Red Cell Distribution Width 12.4 % (11.5-14.5); White Blood Count 9.6 K/mm3 (4.5-10.0)
[2020-11-17 06:30] LABS: Alanine Aminotransferase 10 U/L (4-35); Albumin Level 2.9 g/dL (3.5-5.1); Alkaline Phosphatase 45 U/L (38-126); Anion Gap 3 mmol/L (8-16); Aspartate Amino Transferase 27 U/L (14-36); Bilirubin,Total 0.5 mg/dL (0.2-1.3); Blood Urea Nitrogen 11 mg/dL (7-17); Calcium 8.3 mg/dL (8.4-10.2); Carbon Dioxide 33 mmol/L (22-30); Chloride 97 mmol/L (98-107); Estimated CRCL calculation 53 ml/min; Estimated Glomerular Filt Rate > 60; Glucose 93 mg/dL (65-105); Potassium 3.8 mmol/L (3.4-5.0); Sodium 133 mmol/L (137-145)
[2020-11-17] MEDS: HEPARIN SODIUM 5,000 UNITS/ML VIAL 5000 UNITS SUB-Q (08:47)
[2020-11-17] MEDS: DORZOLAMIDE HCL 2% OPHTH DROPS 1 DROP EACH EYE (08:47)
--- NOTE | 2020-11-17 10:00 | PC.NURSE ---
Patient insisting she will be going home today. Patient passing large amounts of gas. Soft abdomen with active bowel sounds, but still no BM. Patient has only had full liquids but states she hasn't eaten well because everything on the full liquid diet tastes horrible and she is starving to because she hasn't had real food yet. Patient aware that she has to be seen by surgery and hospitalist team to determine if she is ready for discharge.
--- NOTE | 2020-11-17 10:30 | PM.PNGS ---
Progress Note: A&P Assessment and Plan (1) Strangulated femoral hernia: Code(s): K41.30 - Unilateral femoral hernia, with obstruction, without gangrene, not specified as recurrent Status: Acute Assessment and Plan: Continues to improve. Will advance to low fiber diet. Encouraged to increase activity and continued IS use. Okay from a surgical standpoint to discharge later today, if patient is tolerating her diet and medically stable. (2) Acute renal failure: Code(s): N17.9 - Acute kidney failure, unspecified Status: Acute Assessment and Plan: Resolved (3) Small bowel obstruction: Code(s): K56.609 - Unspecified intestinal obstruction, unspecified as to partial versus complete obstruction Status: Acute Additional Plan Discussed plan of care with Dr. Floyd. Subjective Subjective Date/Time Seen: 11/17/20 09:30 Post Op day: 3 (Strangulated right femoral hernia repair, small-bowel resection) Patient reports: no new complaints, tolerating liquids well, voiding w/o difficulty, flatus, no bowel movement and afebrile Interval history: Patient feeling well this morning. No specific complaints. Reports pain is well controlled and has not taken any narcotics. Tolerating liquids well. No nausea or vomiting. Reports lots of flatus, but still no BM. Patient was on 1 L O2 this morning, and has since been taken off and is on room air now. Review of Systems Review of Systems: All systems reviewed & are unremarkable except as noted in HPI and below Constitutional: Constitutional: Reports as per HPI, Reports no additional constitutional complaints, Denies chills and Denies fever(s) Cardiovascular: Cardiovascular: Reports no additional cardiovascular complaints, Denies chest pain and Denies leg edema Respiratory: Respiratory: Reports no additional respiratory complaints, Denies cough and Denies dyspnea Gastrointestinal: Gastrointestinal: Reports as per HPI and Reports no additional gastrointestinal complaints Exam Const: General: comfortable, no acute distress, alert and awake Orientation/consciousness: patient oriented x3 Resp: Effort & Inspection: normal respiratory effort Auscultation: diminished lung sounds GI: Inspection: non-distended and incision (Right groin incision clean and dry, glue intact) GI Palp: Yes Soft to palpation, Yes Tenderness to palpation present (GI) (Mildly tender near right groin incision) and No Hernia present Auscultation: normal bowel sounds Skin: General skin exam: normal color Neuro: General: moves all extremities and no focal motor deficits Extrem: General: no clubbing, cyanosis or edema and no calf tenderness Psych: Mental Status: mental status grossly normal Insight: Good insight present (Psych) Judgement: Good judgement present (Psych) Objective Data Vital Signs Vital Signs: Vital Signs - 24 hr 11/16/20 12:00 11/16/20 14:00 11/16/20 16:00 Temperature 98.4 F Pulse Rate 77 68 85 Respiratory Rate 20 Blood Pressure 132/70 Pulse Oximetry 94 11/16/20 20:00 11/16/20 22:00 11/17/20 00:00 Temperature 97.3 F L Pulse Rate 74 70 71 Respiratory Rate 16 Blood Pressure 144/61 H Pulse Oximetry 96 94 11/17/20 04:00 11/17/20 06:00 11/17/20 08:54 Temperature 97.4 F L Pulse Rate 74 72 Respiratory Rate 16 Blood Pressure 140/62 Pulse Oximetry 94 95 11/17/20 10:13 Temperature Pulse Rate Respiratory Rate Blood Pressure Pulse Oximetry 92 Intake/Output Intake/Output: Intake & Output 11/14/20 11/15/20 11/16/20 11/17/20 23:59 23:59 23:59 23:59 Intake Total 2300 2500 2980 920 Output Total 7564 470 4058 1000 Balance 1200 2000 1130 -80 Meds/Results Medications: Active Medications Generic Name Dose Route Start Last Admin Trade Name Freq PRN Reason Stop Dose Admin Hydrocodone Bitart/Acetaminophen 1 tab 11/16/20 10:15 Hydrocodone/Acetaminophen (*Crx) 5-325 Mg Tablet PO Q4H PRN
--- NOTE | 2020-11-17 12:34 | P.DS_ITS ---
DS: Admitting Diagnosis Admitting Diagnosis Admitting Diagnosis: Small Bowel Obstruction DS: Discharge Diagnosis Discharge Diagnosis (1) Small bowel obstruction: Code(s): K56.609 - Unspecified intestinal obstruction, unspecified as to partial versus complete obstruction Status: Acute Assessment and Plan: * Ct Shows: Distal small bowel obstruction * Patient came in for nausea and vomiting * bowel rest * NG decompression, DC'd * general surgery consult thank you * Bowel resection yesterday 11/14/20 * NS at 80ml/hr--DC'd * pain control-Morphine 2-4mg IV Q2hr PRN * Zofran 4mg IV Q4hr * Diet advanced to Full liquids * Cefazolin 2gm Q8 * PT/OT (2) Hypertension: Qualifiers: Hypertension type: essential hypertension Qualified Code(s): I10 - Essential (primary) hypertension Code(s): I10 - Essential (primary) hypertension Status: Acute Assessment and Plan: * Blood pressure 144/68 * Trend blood pressure * Hold PO Lisinopril 20mg PO, hydrochlorothiazide 25 mg p.o. daily, * Will add hydralizine 10mg PRN with parameters (3) PVT (paroxysmal ventricular tachycardia): Code(s): I47.2 - Ventricular tachycardia Status: Acute Assessment and Plan: * Currently SR in 70s * cardizem 120mg PO on hold * Will add an agent if patient becomes tachycardic or goes into an arrhythmia (4) PAT (paroxysmal atrial tachycardia): Code(s): I47.1 - Supraventricular tachycardia Status: Acute Assessment and Plan: * See above (5) Chronic obstructive pulmonary disease: Qualifiers: COPD type: unspecified COPD Qualified Code(s): J44.9 - Chronic obstructive pulmonary disease, unspecified Code(s): J44.9 - Chronic obstructive pulmonary disease, unspecified Status: Acute Assessment and Plan: * Wheezes on exam * Albuterol breathing treatments ordered * Continue home Symbicort (6) Hypersomnia: Code(s): G47.10 - Hypersomnia, unspecified Status: Acute (7) Tobacco abuse: Code(s): Z72.0 - Tobacco use Status: Acute Assessment and Plan: * Educated patient about smoking cassation * Offered patient a smoking patch (8) Acute renal failure: Qualifiers: Acute renal failure type: unspecified Qualified Code(s): N17.9 - Acute kidney failure, unspecified Code(s): N17.9 - Acute kidney failure, unspecified Status: Acute Assessment and Plan: * cr 1.3, * baseine is normal. * iv hydration. * hold diuretics. 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 * CT 2020 with chronic colasep fo right middle lobe (11) Lung nodule: Code(s): R91.1 - Solitary pulmonary nodule Status: Acute Assessment and Plan: * follow up as out patient (12) Leukocytosis: Qualifiers: Leukocytosis type: unspecified Qualified Code(s): D72.829 - Elevated white blood cell count, unspecified Code(s): D
--- NOTE | 2020-11-17 12:34 | PM.DS ---
DS: Admitting Diagnosis Admitting Diagnosis Admitting Diagnosis: Small Bowel Obstruction DS: Discharge Diagnosis Discharge Diagnosis (1) Small bowel obstruction: Code(s): K56.609 - Unspecified intestinal obstruction, unspecified as to partial versus complete obstruction Status: Acute Assessment and Plan: Ct Shows: Distal small bowel obstruction Patient came in for nausea and vomiting bowel rest NG decompression, DC'd general surgery consult thank you Bowel resection yesterday 11/14/20 NS at 80ml/hr--DC'd pain control-Morphine 2-4mg IV Q2hr PRN Zofran 4mg IV Q4hr Diet advanced to Full liquids Cefazolin 2gm Q8 PT/OT (2) Hypertension: Qualifiers: Hypertension type: essential hypertension Qualified Code(s): I10 - Essential (primary) hypertension Code(s): I10 - Essential (primary) hypertension Status: Acute Assessment and Plan: Blood pressure 144/68 Trend blood pressure Hold PO Lisinopril 20mg PO, hydrochlorothiazide 25 mg p.o. daily, Will add hydralizine 10mg PRN with parameters (3) PVT (paroxysmal ventricular tachycardia): Code(s): I47.2 - Ventricular tachycardia Status: Acute Assessment and Plan: Currently SR in 70s cardizem 120mg PO on hold Will add an agent if patient becomes tachycardic or goes into an arrhythmia (4) PAT (paroxysmal atrial tachycardia): Code(s): I47.1 - Supraventricular tachycardia Status: Acute Assessment and Plan: See above (5) Chronic obstructive pulmonary disease: Qualifiers: COPD type: unspecified COPD Qualified Code(s): J44.9 - Chronic obstructive pulmonary disease, unspecified Code(s): J44.9 - Chronic obstructive pulmonary disease, unspecified Status: Acute Assessment and Plan: Wheezes on exam Albuterol breathing treatments ordered Continue home Symbicort (6) Hypersomnia: Code(s): G47.10 - Hypersomnia, unspecified Status: Acute (7) Tobacco abuse: Code(s): Z72.0 - Tobacco use Status: Acute Assessment and Plan: Educated patient about smoking cassation Offered patient a smoking patch (8) Acute renal failure: Qualifiers: Acute renal failure type: unspecified Qualified Code(s): N17.9 - Acute kidney failure, unspecified Code(s): N17.9 - Acute kidney failure, unspecified Status: Acute Assessment and Plan: cr 1.3, baseine is normal. iv hydration. hold diuretics. 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 CT 2020 with chronic colasep fo right middle lobe (11) Lung nodule: Code(s): R91.1 - Solitary pulmonary nodule Status: Acute Assessment and Plan: follow up as out patient (12) Leukocytosis: Qualifiers: Leukocytosis type: unspecified Qualified Code(s): D72.829 - Elevated white blood cell count, unspecified Code(s): D72.829 - Elevated white blood cell count, unspecified Status: Acute Assessment and Plan: WBC is 11.9 Trend labs Labs in the am DS: Summary Hospital Course Hospital Course: Patient 75-year-old female with a past medical history of asthma, GERD, and COPD who presents to the emergency department with chief complaint of abdominal pain and nausea, vomiting. CT findings included a bowel obstruction. Patient stated that she is feeling a lot better today. During this admission patient went to surgery for a small bowel obstruction with hernia repair. Upon arrival patient was having many episodes of nausea and vomiting. NG tube
== END 2020-11-17 14:35 | disposition home or self-care (01) | DRG 330 ==
LOC: ANHED 23:20 → ANH2MED 23:23
PROVIDERS: Nurse Practitioner; Surgery; Admitting Provider Internal Medicine; Emergency Provider Emergency Medicine; PCP Family Medicine; Visit Provider Internal Medicine
PROC: 0DB80ZZ Excision of Small Intestine, Open Approach (ICD-10-PCS; principal; 2020-11-14 16:00)
PROC: 0DB80ZZ Excision of Small Intestine, Open Approach (ICD-10-PCS; CPT 49000; 2020-11-14 16:00)
DX: K41.30 Unilateral femoral hernia, with obstruction, without gangrene, not specified as recurrent (principal); N17.9 Acute kidney failure, unspecified; J98.11 Atelectasis; E87.1 Hypo-osmolality and hyponatremia; I47.1 Supraventricular tachycardia; I50.42 Chronic combined systolic (congestive) and diastolic (congestive) heart failure; I47.2 Ventricular tachycardia; I48.20 Chronic atrial fibrillation, unspecified; K52.9 Noninfective gastroenteritis and colitis, unspecified; R09.02 Hypoxemia; G47.10 Hypersomnia, unspecified; I11.0 Hypertensive heart disease with heart failure; J44.9 Chronic obstructive pulmonary disease, unspecified; D72.829 Elevated white blood cell count, unspecified; K21.9 Gastro-esophageal reflux disease without esophagitis; G47.33 Obstructive sleep apnea (adult) (pediatric); K57.90 Diverticulosis of intestine, part unspecified, without perforation or abscess without bleeding; R91.8 Other nonspecific abnormal finding of lung field; F17.210 Nicotine dependence, cigarettes, uncomplicated; Z90.710 Acquired absence of both cervix and uterus
CPT/HCPCS: 36415; 71046; 74176; 80048; 80053; 83690; 83735; 85025; 85027; 88300; 88302; 88307; 93005; 97110; 97116; 97161; 97165; 97530; 97535; 99285; A9270; J0131; J0330; J0690; J1100; J1170; J1644; J2250; J2370; J2405; J2704; J2710; J3010; J7030; J7120

== ENCOUNTER 2020-12-02 01:03 | Day surgery (SDC) | payer MEDICARE, OTHER, SELFPAY ==
[2020-12-01 10:42] VITALS: BMI 25.2
[2020-12-02] VITALS (8 sets, daily range): BP systolic 111–145; BP diastolic 46–75; PULSE 62–71; RESP 14–18; TEMP 36.4–36.7; O2SAT 93–100
[2020-12-02] MEDS: LACTATED RINGERS 1,000 ML 30 ML IV CONT (09:01)
--- NOTE | 2020-12-02 09:19 | WPDHPUPDATE1 ---
History and Physical Update Update Date/Time: 12/02/20 09:19 History and Physical has been reviewed, including an updated exam of the patient. Patient was seen in office last week and had abscess developing at her recent right inguinal hernia site. The abscess has worsened over the weekend and now is draining. I have recommended proceeding with incision and drainage of right groin abscess. Risks, benefits, and alternatives have been discussed and questions answered. Patient agrees to proceed with procedure.
--- NOTE | 2020-12-02 09:22 | WPDANESEPPF ---
Anes - Initial Pre Proc Eval Procedure: Operation Date: 12/02/20 10:30 Proposed Procedures p Incision and Drainage Right Groin Abscess - Kevan Floyd DO Date/Time: 12/02/20 09:22 Surgeon: Kevan Floyd DO Pre Op Diagnosis: right groin abscess Patient Data Age: 75 Gender: F Height: 1.59 m Weight: 63.1 kg Last Vital Signs Temp 98.1 F 12/02/20 09:14 Pulse 69 12/02/20 09:14 Resp 18 12/02/20 09:14 BP 129/55 L 12/02/20 09:14 Pulse Ox 93 12/02/20 09:14 Allergies Allergy/AdvReac Type Severity Reaction Status Date / Time codeine Allergy Unknown Vomiting Verified 12/02/20 09:12 losartan Allergy Unknown Unknown Verified 12/02/20 09:12 timolol Allergy Unknown SOB Verified 12/02/20 09:12 amoxicillin [From Augmentin] AdvReac Nausea and Verified 12/02/20 09:12 Vomiting clavulanic acid AdvReac Nausea and Verified 12/02/20 09:12 [From Augmentin] Vomiting Home Medications Medication Instructions Recorded Confirmed Type albuterol sulfate 90 mcg/actuation 1 inhalation INHALATION Q4H PRN 07/12/19 12/01/20 History aerosol inhaler calcium carb-vit D3-minerals 600 1 tablet PO DAILY 07/12/19 12/01/20 History mg calcium-200 unit tablet dorzolamide 2 % eye drops 1 drop EACH EYE TID 07/12/19 12/01/20 History ergocalciferol (vitamin D2) 1,250 1,250 mcg PO WEEKLY 07/12/19 12/01/20 History mcg (50,000 unit) capsule Ocuvite Adult 50 Plus 1 cap PO DAILY 08/28/20 12/01/20 History magnesium carbonate 250 mg capsule 250 mg PO TID cap 10/16/20 12/01/20 History citalopram 10 mg PO DAILY 11/14/20 12/01/20 History diltiazem HCl [Tiadylt ER] 120 mg PO DAILY 11/14/20 12/01/20 History sulfamethoxazole 800 1 tablet PO Q12H #20 tablet 11/27/20 12/01/20 Rx mg-trimethoprim 160 mg tablet gopjwpjeivm-hwfwohbjw-ijiiopgo 1 inh INHALATION DAILY 12/01/20 12/01/20 History [Trelegy Ellipta] lisinopril-hydrochlorothiazide 1 tablet PO DAILY 12/01/20 12/01/20 History Patient hx anesthesia problems: none Family hx anesthesia problems: none [facility] Past Medical History Medical History Afib Asthma Chronic obstructive pulmonary disease GERD (gastroesophageal reflux disease) Hypertension TEMO (obstructive sleep apnea) Surgical History Surgical History H/O hernia repair 11/14/20 1. Strangulated right femoral hernia repair 2. Small-bowel (ileum) resection with [id number] anastomosis History of hysterectomy Family History Family History Mother Family history of malignant neoplasm of breast in first degree relative Other Family history of arthritis Family history of malignant neoplasm of thyroid Social History Social History Smoking packs per day: 1 Smoking cigarettes per day: 20.0 Years smoked: 50 Smoking pack-years: 50.00 Smoking status: Former smoker Tobacco type: cigarettes Second hand tobacco smoke exposure: Yes Smoking end date: 11/13/20 Alcohol intake: never Substance use: never Substance use type: does not use Living arrangements: alone Gender identity (if verbalized by the patient): Female Spiritual care concerns: No Anes - Eval Final PreProcedure Day of Procedure 12/02/20 09:22 Patient weight: normal Heart: irregular rhythm Lungs: clear to auscultation Airway: Mallampati scale class II Neurological: alert and oriented Last oral intake: >/= 8 hours ASA classification: III Emergent: no Anesthetic plan: proceed Anesthesia type and monitoring: general GIVS and standard monitoring Informed Consent: The patient's anesthetic plan and its attendant risks and benefits were discussed with the patient/family/POA. Questions were solicited and answers provided to the satisfaction of the patient/family/POA.
[2020-12-02] MEDS: ceFAZolin 2 GM/D5W 50 ML 2 GM/50 ML BAG IVPB (09:29)
[2020-12-02] MEDS: LIDO 1%/EPINEPHRINE 1:100,000 50 ML VIAL 10 ML INFILTRATE (09:56)
--- NOTE | 2020-12-02 10:33 | W.PM.PROC2 ---
Procedure Note - Detailed Date of Procedure 12/02/20 Pre-op Diagnosis right groin abscess Post-op Diagnosis same Procedure Performed Incision and drainage of right groin abscess Surgeon Kevan Floyd, DO Anesthesia general (LMA) and local (1% lidocaine with epinephrine) Indications This is a 75-year-old woman who is status post emergent strangulated right femoral hernia repair with small bowel resection. She was doing well initially postoperatively but over the past week she has noted progressive swelling and redness over the right groin incision. She was started on Bactrim DS, but continues to have worsening swelling. Decision was made to proceed with incision and drainage of right groin abscess. Findings Incision and drainage performed. There was some scant purulence drainage within the subcutaneous space and once I entered beyond Linus's fascia there was some cloudy serous fluid within the subcu space. Cultures were taken for aerobic and anaerobic culture and sensitivity. Since this was mostly a seroma that may have become infected, decision was made to place a drain within the subcu space instead of packing. A 15 round Jaime drain was placed within the subcutaneous space and the incision was closed back over this area. Description of Procedure Procedure as well as risks, benefits, and alternatives were discussed with the patient. Written consent was obtained and placed in chart prior to procedure. Patient was brought back to surgical suite. She was placed supine on operating table. Time-out was done to confirm patient and procedure. She was intubated by the Anesthesia Department appearing right groin area was prepped and draped in sterile fashion using Betadine prep normal 1% lidocaine with epinephrine was infiltrated over the area of fluctuance in the right groin. The 5 cm incision was made using a 15 blade scalpel directly over the area of fluctuance. There was some scant purulence fluid that was drained. Cultures were taken for aerobic and anaerobic culture and sensitivity. As I entered in deeper and got beyond Linus's fascia, there was fair amount of serous fluid that was drained. The fluid was slightly cloudy but mostly serous. The pocket was inspected and this appeared to be throughout the entire subcu space from the recent surgery. There did not appear to be any deeper infection below the fascia. The area was irrigated with sterile saline. Decision was made to place a 15 round Jaime drain through a counter incision just lateral to the previous scar from the open hernia repair. The drain was secured in place using a 3 0 nylon drain stitch. Linus's fascia was then reapproximated using 3 0 Vicryl simple interrupted sutures. Skin was approximated using 4 0 nylon simple interrupted sutures. Bacitracin ointment was applied followed by 4 x 4 gauze drain sponge and tape. The patient was then awakened from anesthesia and transferred to recovery. Estimated Blood Loss 5 Drains Yes (15 round Jaime) Complications No immediate complications Condition stable Disposition same day
== END 2020-12-02 12:32 | disposition home or self-care (01) ==
PROVIDERS: PCP Physician Assistant; Visit Provider Surgery
PROC: (CPT 10060; principal; 2020-12-02 10:30)
DX: L02.214 Cutaneous abscess of groin (principal); L76.82 Other postprocedural complications of skin and subcutaneous tissue; Y83.8 Other surgical procedures as the cause of abnormal reaction of the patient, or of later complication, without mention of misadventure at the time of the procedure; I48.91 Unspecified atrial fibrillation; J44.9 Chronic obstructive pulmonary disease, unspecified; I10 Essential (primary) hypertension; K21.9 Gastro-esophageal reflux disease without esophagitis; G47.33 Obstructive sleep apnea (adult) (pediatric); Z79.51 Long term (current) use of inhaled steroids; Z87.891 Personal history of nicotine dependence
CPT/HCPCS: 10060; 87070; 87075; 87077; 87186; 87205; A9270; J0690; J1100; J2250; J2405; J2704; J3010; J7120

== ENCOUNTER 2021-01-31 14:17 | Emergency (ER) | payer MEDICARE, OTHER, SELFPAY ==
[2021-01-31 14:28] VITALS: BP 118/61; PULSE 81; RESP 19; TEMP 36.9; O2SAT 96
--- NOTE | 2021-01-31 15:02 | ED.BACK ---
HPI - Back Pain/Injury General Chief Complaint: Back Pain/Injury Stated Complaint: severe back pain Time Seen by Provider: 01/31/21 15:03 Source: patient, family (daughter Adilene Allen whom Raven requested to remain in room) and RN notes reviewed Mode of arrival: wheelchair Limitations: no limitations History of Present Illness HPI Narrative: 76-year-old female presents with daughter, Raven, complaining of lower back pain for 8-9 days. ?Raven reports increasing lower back pain over the past 2 days. ?Reports being evaluated by her PMD on Tuesday01/26/21, started on Hydrocodone with Acetaminophen (5mg/325mg), and back exercises, in which she believes exercises increase the pain. ?Ibuprofen and Hydrocodone with Acetaminophen (5mg/325mg) took 3-4 hours prior to arrival with little to no relief. ?Denies new injuries or falls. ?RT radiating pain. ?Denies numbness or tingling. Denies fever or chills. ?No upper or lower extremity pain or weakness. ?Exacerbating factors consist of prolonged standing and bending. Denies nausea, vomiting, or abdominal pain. ?Denies problems with urinating or having a bowel movement, LBM this morning per patient and normal. ?No flank pain or hematuria. ?Remains active. ?The patient reports she has not been diagnosed with COVID-19. ?The patient reports she received 2 [employer] COVID-19 vaccines. ?The patient reports she is not waiting for the results of a COVID-19 lab test. ?The patient reports she does not have weakness, fatigue, or myalgia. ?The patient reports she does not have a new or worsening cough or shortness of breath. The patient reports she does not have any rhinorrhea, congestion, loss of taste or smell, sore throat, and diarrhea. Denies recent traveling. Denies concerns for COVID-19 or exposures. ?At this time, the patient is not suspected of having COVID-19.?? Some parts of this dictation were generated by voice recognition software and may contain typographical and/or grammatical inaccuracies. Related Data Home Medications Medication Instructions Recorded Confirmed albuterol sulfate 90 mcg/actuation 1 inhalation INHALATION Q4H PRN 07/12/19 01/31/21 aerosol inhaler calcium carb-vit D3-minerals 600 1 tablet PO DAILY 07/12/19 01/31/21 mg calcium-200 unit tablet dorzolamide 2 % eye drops 1 drop EACH EYE TID 07/12/19 01/31/21 ergocalciferol (vitamin D2) 1,250 1,250 mcg PO WEEKLY 07/12/19 01/31/21 mcg (50,000 unit) capsule Ocuvite Adult 50 Plus 1 cap PO DAILY 08/28/20 01/31/21 magnesium carbonate 250 mg capsule 250 mg PO TID cap 10/16/20 01/31/21 citalopram 10 mg PO DAILY 11/14/20 01/31/21 Trelegy Ellipta 1 inh INHALATION DAILY 12/01/20 01/31/21 Allergies Allergy/AdvReac Type Severity Reaction Status Date / Time codeine Allergy Unknown Vomiting Verified 01/31/21 14:21 losartan Allergy Unknown Unknown Verified 01/31/21 14:21 timolol Allergy Unknown SOB Verified 01/31/21 14:21 amoxicillin [From Augmentin] AdvReac Nausea and Verified 01/31/21 14: Vomiting clavulanic acid AdvReac Nausea and Verified 01/31/21 14:21 [From Augmentin] Vomiting Review of Systems Review of Systems: CONSTITUTIONAL: Denies fever, chills, sweats. EYES: Denies visual changes, redness, discharge. ENT: Denies rhinorrhea, congestion, sore throat, otalgia. CARDIOVASCULAR: Denies chest pain, palpitations, edema. RESPIRATORY: Denies dyspnea, wheezing, cough. GASTROINTESTINAL: Denies abdominal pain, nausea, vomiting, diarrhea. GENITOURINARY: Denies dysuria, hematuria, abnormal discharge. SKIN: Denies rash or itching. MUSCULOSKELETAL: Complains of lower back pain, radiating into RT buttock. Denies joint pain or myalgia. NEUROLOGIC: Denies numbness or focal weakness. PSYCHIATRIC: Denies anxiety or depression. All systems reviewed & are unremarkable except as noted in HPI and below. [facility] Past Medical History Medical History (Updated 02/01/21 @ 00:00 by Background Daemon) Afib Asthma BMI 26.0-26.9,adult Chron
[2021-01-31] MEDS: KETOROLAC (*BKC) 60 MG/2 ML VIAL IM (15:24)
== END 2021-01-31 15:51 | disposition home or self-care (01) ==
PROVIDERS: Emergency Provider Nurse Practitioner Family; PCP Physician Assistant
DX: M54.41 Lumbago with sciatica, right side (principal); I10 Essential (primary) hypertension; J44.9 Chronic obstructive pulmonary disease, unspecified; I48.91 Unspecified atrial fibrillation; Z87.891 Personal history of nicotine dependence
CPT/HCPCS: 96372; 99213; G0463; J1885

== ENCOUNTER → 2021-02-03 14:22 | Outpatient (CLI) | payer MEDICARE, OTHER, SELFPAY ==
--- NOTE | ~2021-02-03 | XR_ITS ---
XR lumbar spine min 4V DATE: 02/03/2021 14:53 INDICATION: Back pain TECHNIQUE: AP, lateral, coned lateral lumbosacral views COMPARISON: 10/07/2020 lumbar spine FINDINGS: There is prominent diffuse osteopenia. There is dextroscoliosis of the lower thoracic and upper lumbar spine and levoscoliosis of the lower lumbar spine. There is severe degenerative disc disease with severe disc space narrowing, examinations] phenomenon and prominent spurring at L1-2. Moderate degenerative disc disease at the remaining lumbar spine. No lumbar spine fracture or bone destruction is evident. There is grade 1 anterolisthesis at L4-5. Prominent degenerative change at the apophyseal joints. The sacroiliac joints are intact. There is extensive calcification of the abdominal aorta and iliac arteries. IMPRESSION: Diffuse osteopenia. Lumbar scoliosis Multilevel degenerative disc disease, particularly severe at L1-2 Grade 1 anterolisthesis at L4-5 due to degenerative change at the apophyseal joints Reviewed, dictated and finalized at location A. IMPRESSION: Diffuse osteopenia. Lumbar scoliosis Multilevel degenerative disc disease, particularly severe at L1-2 Grade 1 anterolisthesis at L4-5 due to degenerative change at the apophyseal shannan ints
== END ==
PROVIDERS: PCP Family Medicine; Visit Provider Family Medicine
DX: M47.816 Spondylosis without myelopathy or radiculopathy, lumbar region (principal); M41.9 Scoliosis, unspecified
CPT/HCPCS: 72110

== ENCOUNTER → 2021-02-23 13:15 | Outpatient (CLI) | payer MEDICARE, OTHER, SELFPAY ==
--- NOTE | ~2021-02-23 | MR_ITS ---
EXAMINATION: MR lumbar spine wo/w con EXAM DATE: 02/23/2021 14:26 INDICATION: Spinal stenosis, lumbar region with neurogenic claudication spinal stenosis . Difficulty walking. TECHNIQUE: Multi-sequential, multiplanar MR images of the lumbar spine were obtained without contrast . Sagittal T1, T2, T2 fat saturation images. Axial T2 weighted images. Axial T1 weighted sequence. Patient was then injected with 13 mL Multihance intravenous contrast and reimaged. Postcontrast axi al and sagittal T1-weighted fat saturation sequences were obtained. Comparison is made to prior exami nation from 06/26/2019. FINDINGS: There is moderate thoracolumbar dextroscoliosis. Interval development of bilateral sacral i nsufficiency fractures, edema throughout the sacrum. Mild buckling of the anterior cortex of the S2 s egment. Mild loss of the L1 and 2 vertebral body heights with mild edema, probably subacute compressi on fractures. There is 3 mm retrolisthesis L1 on L2, L2 on L3, L3 on L4. There is moderate to severe loss of the disc height at L2-3, moderate at L1-2. Mild disc disease at the other lumbar levels. Post contrast images demonstrates robust enhancement of the sacrum, and mild enhancement of the L1-2 endp lates. Level by level evaluation: T12-L1: There is a mild to moderate diffuse disc bulge. Facet arthropathy: Mild. Neural foraminal stenosis: No stenosis. Central canal stenosis: Mild. L1-L2: There is a moderate diffuse disc bulge. Facet arthropathy: Mild to moderate. Neural foraminal stenosis: Moderate left, mild to moderate right. Central canal stenosis: Mild to moderate. L2-L3: There is a mild diffuse disc bulge. Facet arthropathy: Moderate to severe right, moderate left. Neural foraminal stenosis: Mild to moderate bilateral. Central canal stenosis: Mild. L3-L4: There is a mild diffuse disc bulge. Facet arthropathy: Moderate. Neural foraminal stenosis: Moderate right, mild left. Central canal stenosis: Mild to moderate. L4-L5: There is a mild diffuse disc bulge. Facet arthropathy: Severe left, moderate right. Neural foraminal stenosis: Moderate bilateral, right greater than left. Central canal stenosis: Moderate. L5-S1: There is a mild diffuse disc bulge. Facet arthropathy: Moderate bilateral. Neural foraminal stenosis: Mild to moderate right, mild left. Central canal stenosis: No stenosis. IMPRESSION: 1. Bilateral sacral acute insufficiency fractures. 2. Mild subacute L1 and L2 compression fractures. 3. Overall moderate lumbar spondylosis. 4. Moderate thoracolumbar dextroscoliosis. Reviewed, dictated and finalized at location B.
[2021-02-23 13:57] LABS: Estimated Glomerular Filt Rate 54
== END ==
PROVIDERS: PCP Family Medicine
DX: M48.062 Spinal stenosis, lumbar region with neurogenic claudication (principal); M48.58XA Collapsed vertebra, not elsewhere classified, sacral and sacrococcygeal region, initial encounter for fracture; M47.816 Spondylosis without myelopathy or radiculopathy, lumbar region; M41.85 Other forms of scoliosis, thoracolumbar region
CPT/HCPCS: 72158; A9577

== ENCOUNTER 2021-03-24 15:38 | Outpatient (CLI) | payer MEDICARE, OTHER, SELFPAY ==
--- NOTE | ~2021-03-24 | CT_ITS ---
EXAMINATION: CT pelvis wo con DATE: 03/24/2021 16:04 INDICATION: Right lower quadrant abdominal pain. TECHNIQUE: Computed tomography (CT) of the pelvis was performed without intravenous contrast. Automat ed exposure control and iterative reconstruction technique were employed. The dose-length product was 594.65 mGy-cm. COMPARISON: CT abdomen and pelvis 11/13/2020, lumbar spine MRI 02/23/21 FINDINGS: There are no dilated loops of bowel. There is diverticulosis of the colon without evidence of diverticulitis. There are no pathologically enlarged lymph nodes. There is no free intraperitoneal fluid. There are surgical changes of right inguinal hernia repair. There are healing insufficiency f ractures of the bilateral sacral ala and S2 segment that were seen on 02/23/21. There are fractures of the bilateral L5 transverse processes. There is mild lumbar spondylosis. There are fractures of righ t superior and inferior pubic rami. Osteitis pubis is noted. There is moderate osteoarthritis of the hips. IMPRESSION: 1. Acute insufficiency fractures of right superior and inferior pubic rami. 2. Healing fractures of the sacrum and bilateral L5 transverse processes. Reviewed, dictated and finalized at location A.
== END 2021-03-24 15:39 | disposition home or self-care (01) ==
LOC: ANHIMG 15:44
PROVIDERS: PCP Physician Assistant; Visit Provider Surgery
DX: S32.10XA Unspecified fracture of sacrum, initial encounter for closed fracture (principal); S32.059A Unspecified fracture of fifth lumbar vertebra, initial encounter for closed fracture; R10.31 Right lower quadrant pain; Z98.890 Other specified postprocedural states; Z87.19 Personal history of other diseases of the digestive system
CPT/HCPCS: 72192

== ENCOUNTER 2021-03-31 12:36 | Outpatient (CLI) | payer MEDICARE, OTHER, SELFPAY ==
--- NOTE | ~2021-03-31 | US_ITS ---
EXAMINATION: US venous doppler LE RT DATE: 03/31/2021 13:25 INDICATION: Right lower limb pain and swelling TECHNIQUE: Grayscale ultrasound images without and with compression and Doppler ultrasound images of the right lower extremity veins were obtained. COMPARISON: 04/07/2016 FINDINGS: The visualized portions of right common femoral vein, profunda (deep) femoral vein, femoral vein, pop liteal vein, posterior tibial veins, peroneal veins, gastrocnemius vein and greater saphenous vein ou tflow are patent. IMPRESSION: 1. No deep venous thrombosis in the right lower limb. Reviewed, dictated and finalized at location A.
== END 2021-03-31 12:37 | disposition home or self-care (01) ==
LOC: ANHIMG 12:39
PROVIDERS: PCP Physician Assistant; Visit Provider Physician Assistant
DX: R60.0 Localized edema (principal)
CPT/HCPCS: 93971

== ENCOUNTER 2021-04-30 15:28 | Outpatient (CLI) | payer MEDICARE, OTHER, SELFPAY ==
--- NOTE | ~2021-04-30 | MR_ITS ---
EXAMINATION: MR hip RT wo/w con DATE: 04/30/2021 17:21 INDICATION: Right hip pain. Concern for malignancy to right hip. TECHNIQUE: Magnetic resonance imaging (MRI) of the right hip was performed without and with 13 mL Mu ltihance intravenous contrast. Sequences included full-field axial PD-weighted FS FSE, T1-weighted FS E, T1-weighted FS FSE, and postcontrast T1-weighted FS FSE, coronal of the pelvis with PD-weighted FS FSE, T2-weighted FSE and T1-weighted FSE, small field of view of the right hip with axial PD-weight ed FS FSE, sagittal PD-weighted FS FSE, coronal PD-weighted FS FSE and postcontrast coronal T1 weight ed FSE. Additional radial T1-weighted FGR oriented orthogonal to the acetabular rim were obtained for evaluation of the labrum. COMPARISON: CT pelvis dated 03/24/2021 FINDINGS: Bones/labrum/cartilage: Lower lumbar levoscoliosis with moderate spondylosis. Again seen are fractures of the right superior and inferior pubic rami and bilateral sacral ala. Additional fractures at the S2 vertebral body and a t the bilateral transverse processes of L5 not clearly visualized on the current study No new fractur es identified. Aside from the expected signal changes and enhancement at the sites of fracture there is normal marrow signal throughout with no pathologic marrow replacing process or other abnormally en hancing bone lesions. Mild bilateral hip osteoarthritis with labral degeneration at the right hip. Fluid: Symmetric physiologic amount of fluid within both hip joints. Soft tissues: Relatively symmetric likely age-related atrophy of the musculature of the pelvis and proximal thighs. More prominent atrophy of the bilateral gluteus minimus tendons and cephalad retraction of the bilat eral gluteus medius myotendinous junctions consistent with partial tears of the respective bilateral gluteus medius and minimus tendons. Associated mild bilateral gluteus medius bursitis. The bilateral iliopsoas and proximal hamstring tendons are normal. Prominent diverticulosis along the visualized si gmoid colon. The uterus is not identified and has likely been surgically resected. Limited evaluation of visceral organs of the pelvis is otherwise unremarkable. Postoperative change of prior right ingu inal hernia repair. No pathologically enlarged pelvic/inguinal lymphadenopathy. IMPRESSION: 1. Likely insufficiency fractures at the bilateral sacral ala and right superior and inferior pubic r ami. No findings to suggest malignancy/pathologic fracture on either the current MRI or prior CT. 2. Likely chronic partial tears at the bilateral gluteus medius and minimus tendons with correspondin g muscular atrophy and cephalad retraction of the myotendinous junctions. 2. Mild right hip osteoarthritis with labral degeneration. Reviewed, dictated and finalized at location A. TION MANAGER IMPRESSION: 1. Likely insufficiency fractures at the bilateral sacral ala and right superio r and inferior pubic rami. No findings to suggest malignancy/pathologic fractur e on either the current MRI or prior CT. 2. Likely chronic partial tears at the bilateral gluteus medius and minimus ten dons with corresponding muscular atrophy and cephalad retraction of the myotend inous junctions. 2. Mild right hip osteoarthritis with labral degeneration.
[2021-04-30 16:24] LABS: Estimated Glomerular Filt Rate 43
== END 2021-04-30 15:29 | disposition home or self-care (01) ==
LOC: ANHIMG 15:37
PROVIDERS: PCP Physician Assistant; Visit Provider Neurological Surgery
DX: M48.062 Spinal stenosis, lumbar region with neurogenic claudication (principal); M16.11 Unilateral primary osteoarthritis, right hip
CPT/HCPCS: 73723; A9577

== ENCOUNTER 2021-08-25 11:16 | Outpatient (CLI) | payer MEDICARE, OTHER, SELFPAY ==
--- NOTE | ~2021-08-25 | CT_ITS ---
EXAMINATION:CT diagnostic chest wo con DATE: 08/25/2021 11:43 INDICATION: Other nonspecific abnormal finding in lung field. Lung nodules. TECHNIQUE: Computed tomography (CT) of the chest was performed without intravenous contrast. Automate d exposure control and iterative reconstruction technique were employed. The dose-length product (DLP ) was 70.09 mGy-cm. COMPARISON: Chest CT 07/17/2019, CT abdomen and pelvis 11/13/2020 FINDINGS: There is moderate emphysema. There is chronic complete collapse of right middle lobe with a ir bronchograms. There are worsened centrilobular nodules and tree-in-bud opacities in basilar right lower lobe and worsening peripheral airspace opacities in basilar right lower lobe. Again seen is mil d atelectasis in anterior segment right upper lobe. There are multiple scattered nodules in the upper lobes and superior segment left lower lobe measuring up to 7 mm. Calcified right lung nodules are co nsistent with old granulomatous disease. No pleural effusion. Cardiomegaly is noted. There are mao ry artery calcifications. No pericardial effusion. There is ectasia of ascending aorta measuring 4.3 cm. There is enlargement of the central pulmonary arteries, consistent with pulmonary arterial hypert ension. There is chronic thickening of the adrenal glands, likely benign. There is a 2.9 cm cyst in t he liver. There is kyphosis and mild spondylosis of thoracic spine. There is severe lumbar spondylosi s. There is a chronic burst fracture of T11. IMPRESSION: 1. Worsened centrilobular nodules, tree-in-bud opacities, and peripheral airspace opacities in basila r right lower lobe, consistent with pneumonia. 2. Worsened scattered nodules in the lungs measuring up to 7 mm, which may be infection or less likel y metastatic disease. 3. Moderate emphysema. Reviewed, dictated and finalized at location A. IMPRESSION: 1. Worsened centrilobular nodules, tree-in-bud opacities, and peripheral airspa ce opacities in basilar right lower lobe, consistent with pneumonia. 2. Worsened scattered nodules in the lungs measuring up to 7 mm, which may be i nfection or less likely metastatic disease. 3. Moderate emphysema.
== END 2021-08-25 11:17 | disposition home or self-care (01) ==
LOC: ANHIMG 11:17
PROVIDERS: PCP Physician Assistant; Visit Provider Nurse Practitioner Family
DX: R91.8 Other nonspecific abnormal finding of lung field (principal); J43.9 Emphysema, unspecified
CPT/HCPCS: 71250

== ENCOUNTER 2021-10-13 15:35 | Outpatient (CLI) | payer MEDICARE, OTHER, SELFPAY ==
--- NOTE | ~2021-10-13 | MR_ITS ---
EXAMINATION: MR thoracic spine wo con DATE: 10/13/2021 16:27 INDICATION: Chronic back pain. TECHNIQUE: Magnetic resonance imaging (MRI) of the thoracic spine was performed without intravenous c ontrast. Sagittal localizer T1-weighted FSE of the cervical spine was obtained. Thoracic spine sequen beverly included sagittal T2-weighted FSE, sagittal T1-weighted FSE, sagittal STIR FSE, and axial T2-weig hted FSE. COMPARISON: CT chest 08/25/2021 FINDINGS: There is 13 degrees levoscoliosis of cervicothoracic spine. There is kyphosis of thoracic s pine. There is a chronic burst fracture of T11 with greater than 4/5 loss of height centrally and foc al kyphosis. There is 3 mm retrolisthesis of T11 on T12 and T12 on L1. There is mild chronic anterior wedging of T7 and T8. There are Schmorl's nodes from T6-T7 through T9-T10. There is mildly decreased disc height at T10-T11 and T11-T12 and moderately decreased disc height at T12-L1. At T10-T11, the d isc is bulging with mild central canal stenosis. At T11-T12, the disc is bulging with mild central ca nal stenosis. At T12-L1, the disc is bulging with mild central canal stenosis. There is multilevel fa cet joint osteoarthritis, severe at many levels. There is multilevel mild neural foraminal stenosis b ilaterally. There are dilated nerve root sleeves at multiple levels bilaterally. The spinal cord sign al intensity is normal. IMPRESSION: 1. Mild thoracic spondylosis. 2. Cervicothoracic levoscoliosis. Thoracic kyphosis. Reviewed, dictated and finalized at location B.
== END 2021-10-13 15:36 | disposition home or self-care (01) ==
PROVIDERS: PCP Physician Assistant; Visit Provider Pain Medicine Pain Medicine
DX: Z01.818 Encounter for other preprocedural examination (principal); M47.814 Spondylosis without myelopathy or radiculopathy, thoracic region; M51.44 Schmorl's nodes, thoracic region; M48.04 Spinal stenosis, thoracic region; M40.294 Other kyphosis, thoracic region; M48.54XA Collapsed vertebra, not elsewhere classified, thoracic region, initial encounter for fracture
CPT/HCPCS: 72146

== ENCOUNTER 2022-01-22 13:34 | Outpatient (CLI) | payer MEDICARE, OTHER, SELFPAY ==
--- NOTE | ~2022-01-22 | MR_ITS ---
EXAMINATION: MR shoulder LT wo con DATE: 01/22/2022 14:40 INDICATION: Left shoulder pain. TECHNIQUE: Magnetic resonance imaging (MRI) of the left shoulder was performed without intravenous co ntrast. Sequences included axial PD-weighted FS FSE, coronal oblique PD-weighted FS FSE and T2-weight ed FS FSE, and sagittal oblique T2-weighted FS FSE and T1-weighted FSE. COMPARISON: Left shoulder radiographs 01/04/2022 FINDINGS: Coracoacromial arch: The acromion undersurface is curved in morphology (type II). There is mild acromioclavicular joint os teoarthritis. There is severe subacromial/subdeltoid bursitis. Rotator cuff: There is a full-thickness tear of supraspinatus and infraspinatus tendons measuring 5 cm anterior to posterior by 5 cm proximal to distal. There is mild teres minor tendinopathy. There is severe subscap ularis tendinopathy with shallow articular-sided fraying. There is volume loss of infraspinatus muscl e belly. There is mild fatty atrophy of the rotator cuff muscle bellies. There is increased T2-weight ed signal intensity in the supraspinatus, infraspinatus, and teres minor muscle bellies, likely a com bination of subacute denervation and mild strain (grade 1). Biceps tendon and glenoid labrum: Biceps tendon is in bicipital groove. There is mild intra-articular biceps tendinopathy. There is deg enerative tearing of the glenoid labrum. Fluid: There is a large glenohumeral joint effusion. Bones/cartilage: There is shallow partial-thickness cartilage loss of glenoid and humeral head. There is a subchondral fracture of humeral head with low signal fracture line and bone marrow edema without articular surfa ce depression. IMPRESSION: 1. Massive full-thickness rotator cuff tear. 2. Subchondral fracture of humeral head. 3. Mild glenohumeral joint chondrosis. 4. Mild acromioclavicular joint osteoarthritis. 5. Mild intra-articular biceps tendinopathy. 6. Large glenohumeral joint effusion and severe subacromial/subdeltoid bursitis. Reviewed, dictated and finalized at location A. IMPRESSION: 1. Massive full-thickness rotator cuff tear. 2. Subchondral fracture of humeral head. 3. Mild glenohumeral joint chondrosis. 4. Mild acromioclavicular joint osteoarthritis. 5. Mild intra-articular biceps tendinopathy. 6. Large glenohumeral joint effusion and severe subacromial/subdeltoid bursitis .
== END 2022-01-22 13:35 | disposition home or self-care (01) ==
PROVIDERS: PCP Physician Assistant; Visit Provider Orthopaedic Surgery
DX: M25.512 Pain in left shoulder (principal); M75.122 Complete rotator cuff tear or rupture of left shoulder, not specified as traumatic; S42.292A Other displaced fracture of upper end of left humerus, initial encounter for closed fracture; M19.012 Primary osteoarthritis, left shoulder; M77.8 Other enthesopathies, not elsewhere classified; M25.412 Effusion, left shoulder; M75.52 Bursitis of left shoulder
CPT/HCPCS: 73221

== ENCOUNTER 2022-01-29 13:53 | Outpatient (CLI) | payer MEDICARE, OTHER, SELFPAY ==
--- NOTE | 2022-01-29 14:41 | ECG_ITS ---
Measurements Intervals [place] Rate: 69 P: 65 [place]: 163 QRS: 35 QRSD: 100 T: 60 QT: 424 QTc: 456 Interpretive Statements SINUS RHYTHM WITH SINUS ARRHYTHMIA COMPARED TO ECG 11/13/2020 19:32:04 THE PACS ARE LESS FREQUENT AND THE PVCS HAVE RESOLVED Electronically Signed On 01-30-2022 13:30:23 CDT by Minal Torre M.D.
[2022-01-29 15:03] LABS: Basophils Absolute Auto 0.1 K/mm3 (0.0-0.1); Basophils Percent Auto 0.6 % (0.2-1.2); Eosinophils Absolute Auto 0.3 K/mm3 (0-0.3); Eosinophils Percent Auto 3.5 % (0-4.4); Hematocrit 34.5 % (37.0-47.0); Hemoglobin 10.9 g/dL (12.0-15.0); Immature Granulocyte Absolute 0.03 K/mm3 (0.00-0.031); Immature Granulocyte Percent A 0.3 % (0-0.5); Lymphocytes Absolute Auto 1.73 K/mm3 (0.9-3.2); Lymphocytes Percent Auto 19.4 % (18.3-44.2); Mean Corpuscular HGB Conc 31.6 g/dl (32-36); Mean Corpuscular Hemoglobin 30.7 pg (26-34); Mean Corpuscular Volume 97.2 fl (80-100); Mean Platelet Volume 8.7 fl (7.4-10.4); Monocytes Absolute Auto 0.7 K/mm3 (0.1-0.6); Monocytes Percent Auto 8.2 % (2.6-8.5); Neutrophils Absolute Auto 6.1 K/mm3 (1.3-6.7); Platelet Count Result 326 k/mm3 (150-375); Red Blood Count 3.55 M/mm3 (4.2-5.4); Red Cell Distribution Width 13.1 % (11.5-14.5); White Blood Count 8.9 K/mm3 (4.5-10.0)
[2022-01-29 15:13] LABS: Anion Gap 8 mmol/L (8-16); Blood Urea Nitrogen 21 mg/dL (7-17); Calcium 9.6 mg/dL (8.4-10.2); Carbon Dioxide 30 mmol/L (22-30); Chloride 98 mmol/L (98-107); Estimated Glomerular Filt Rate 48; Glucose 117 mg/dL (65-110); Sodium 136 mmol/L (137-145)
== END 2022-01-29 13:54 | disposition home or self-care (01) ==
LOC: ANHSURGERY 13:59
PROVIDERS: Anesthesiology; PCP Physician Assistant; Visit Provider Orthopaedic Surgery
DX: Z01.818 Encounter for other preprocedural examination (principal); M19.012 Primary osteoarthritis, left shoulder; I10 Essential (primary) hypertension; Z79.899 Other long term (current) drug therapy
CPT/HCPCS: 36415; 80048; 85025; 87081; 93005

== ENCOUNTER 2022-02-05 14:01 | Outpatient (CLI) | payer MEDICARE, OTHER, SELFPAY ==
--- NOTE | ~2022-02-05 | XR_ITS ---
EXAMINATION: XR chest 2V DATE: 02/05/2022 14:26 INDICATION: Other nonspecific abnormal finding of the lung field TECHNIQUE: PA and lateral views of the chest are obtained. COMPARISON: 11/13/2020 FINDINGS: There are minimal airspace opacities of the right lower lung zone. No pleural effusion or p neumothorax. The heart size is normal. There is a large hiatal hernia. There is a chronic burst fract ure of T11. IMPRESSION: 1. Minimal airspace opacities of the right lower lung zone, consistent with atelectasis versus pneumo jaswinder. 2. Large hiatal hernia. Reviewed, dictated and finalized at location B. IMPRESSION: 1. Minimal airspace opacities of the right lower lung zone, consistent with ate lectasis versus pneumonia. 2. Large hiatal hernia.
== END 2022-02-05 14:02 | disposition home or self-care (01) ==
PROVIDERS: PCP Physician Assistant; Visit Provider Nurse Practitioner Family
DX: R91.8 Other nonspecific abnormal finding of lung field (principal); K44.9 Diaphragmatic hernia without obstruction or gangrene
CPT/HCPCS: 71046

== ENCOUNTER 2022-02-18 00:51 | Day surgery (SDC) | payer MEDICARE, OTHER, SELFPAY ==
[2022-01-29 13:49] VITALS: BP 130/64; PULSE 74; RESP 20; TEMP 37.2; O2SAT 93; BMI 30.4
--- NOTE | 2022-01-29 13:49 | PC.NURSE ---
Addendum entered by Anna Zapata RN 01/29/22 14:28: PT AWARE THAT SHE CAN USE HER EYE DROPS DAY OF SURGERY Original Note: PRE-OP INSTRUCTIONS, PLEASE READ CAREFULLY Report to the Outpatient Waiting Room, entrance under the green pavilion located off [facility], at time _0600_ on date _02/18/22_. OR Time: _0730_. - You and your visitor will be asked to self-screen and do not enter if you have any COVID symptoms. A mask is required within the hospital. - Only one visitor and NO children visitors are allowed at this time. - The patient visitor is requested to leave or wait in car when not with patient due to restrictions. - PACK A SMALL OVERNIGHT BAG AND LEAVE IN THE CAR. VISITING HOURS 10AM-8PM PARK IN FRONT PARKING LOT AND USE MAIN HOSPITAL ENTRANCE. Patients may have clear liquids (water, carbonated beverages, clear teas, apple juice) until 3 hours prior to surgery (0430 AM) with a maximum of 20 ounces. - No food from midnight until time of surgery Take the following medications with a SIP of water the morning of surgery: _CITALOPRAM, TIADYLT , TRELEGY INHALER, PAIN MED IF NEEDED__ Medications to discontinue per SHEPPERSON - _IBUPROFEN 7 DAYS PRIOR TO SURGERY, Date to take last dose 02/10/22_ Medications to discontinue per ANESTHESIA - _VITAMINS AND SUPPLEMENTS 3 DAYS PRIOR TO SURGERY, Date to take last dose 02/14/22_ Please no make-up, nail albanian, hairspray, perfume, deodorant, or body powder the day of surgery. No jewelry (including any body piercings) or valuables the day of surgery, leave them at home. Please take a shower or bath the night before, or the morning of, surgery with an antibacterial soap. Wear comfortable, loose fitting clothing. Children are encouraged to wear pajamas. - Jewelry must be removed prior to entering the operating room. Rings and piercings that are not removed may be cut off. - The hospital will not accept responsibility for valuables. - Please leave all valuables, including medications, at home the day of surgery. If you are going home after surgery, a licensed local intermodal truck driver must drive you home. - NO public transportation without another adult. - We recommend that an adult stay with you for 24 hours following discharge. - We also recommend that you do not drive, make important decision, drink alcoholic beverages, or take any drugs that were not prescribed by your health care provider for at least 24 hours after your discharge time. Follow any additional instructions given to you from your surgeon. If you or anyone in your household have experienced Covid symptoms in the past week, please notify your surgeon or the nurse liaison at the phone number below for possible testing. Instructions given to _PT & DAUGHTER (EDWIN)_and asked if any additional questions and then verbalized understanding. Patient advised to call surgeon office or pre surgery nurse liaison [phone] if any additional questions.
[2022-02-18] VITALS (16 sets, daily range): BP systolic 94–158; BP diastolic 45–78; PULSE 60–95; RESP 16–30; TEMP 36–36.8; O2SAT 92–100
--- NOTE | ~2022-02-18 | XR_ITS ---
EXAMINATION: XR shoulder LT min 2V DATE: 02/18/2022 11:39 INDICATION: Left shoulder arthroplasty. Postop. TECHNIQUE: 2 views of left shoulder were obtained. COMPARISON: Left shoulder radiographs 01/04/2022 FINDINGS: There is a reverse eblv-pto-wtuoxd total left arthroplasty in near-anatomic alignment. No a cute fracture. There is gas in the soft tissues, consistent with recent surgery. There is mild osteoa rthritis of acromioclavicular joint. There is an old healed left rib fracture. IMPRESSION: 1. Reverse gajz-mof-sbspjk total left shoulder arthroplasty in near-anatomic alignment. Reviewed, dictated and finalized at location A. IMPRESSION: 1. Reverse glqo-gkr-adiqtw total left shoulder arthroplasty in near-anatomic al ignment.
[2022-02-18] MEDS: TRANEXAMIC ACID 1,000MG/ISO100 1,000 MG/100 ML BAG 200 MG IVPB (06:55)
[2022-02-18] MEDS: LACTATED RINGERS 1,000 ML 30 ML IV CONT ×2 (06:55→09:55)
[2022-02-18] MEDS: ACETAMINOPHEN 500 MG TABLET 1000 MG PO (06:57)
--- NOTE | 2022-02-18 07:06 | WPDHPUPDATE1 ---
History and Physical Update Update Date/Time: 02/18/22 07:06 History and Physical has been reviewed, including an updated exam of the patient. There are NO changes in the patient's condition. Risks, benefits, and alternatives have been discussed and questions answered. Patient agrees to proceed with procedure.
--- NOTE | 2022-02-18 07:11 | WPDANESEPPF ---
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 Patient Data Age: 77 Gender: F Height: 1.54 m Weight: 71.3 kg Last Vital Signs Temp 37.2 C 01/29/22 13:49 Pulse 74 01/29/22 13:49 Resp 20 01/29/22 13:49 BP 130/64 01/29/22 13:49 Pulse Ox 93 01/29/22 13:49 O2 Del Method Room Air 01/29/22 13:49 Allergies Allergy/AdvReac Type Severity Reaction Status Date / Time codeine Allergy Unknown Vomiting Verified 02/18/22 06:40 losartan Allergy Unknown Cough Verified 02/18/22 06:40 timolol Allergy Unknown SOB Verified 02/18/22 06:40 amoxicillin [From Augmentin] AdvReac Nausea and Verified 02/18/22 06:40 Vomiting clavulanic acid AdvReac Nausea and Verified 02/18/22 06:40 [From Augmentin] Vomiting Home Medications Medication Instructions Recorded Confirmed Type albuterol sulfate 90 mcg/actuation 1 inhalation inhalation Q4H PRN 07/12/19 02/10/22 History aerosol inhaler (ProAir HFA) Shortness Of Breath calcium carb-vit D3-minerals 600 1 tablet PO DAILY 07/12/19 02/18/22 History mg calcium-200 unit tablet (Calcium 600 + Minerals) dorzolamide 2 % eye drops 1 drop ophthalmic (eye) TID 07/12/19 02/18/22 History magnesium carbonate 250 mg capsule 250 mg PO TID 10/16/20 02/18/22 History citalopram 10 mg tablet 10 mg PO DAILY 11/14/20 02/18/22 History fluticasone fur. 100 mcg-umeclid 1 inh inhalation DAILY 12/01/20 02/18/22 History 62.5 mcg-vilant 25 mcg inhalat.powder (Trelegy Ellipta) ibuprofen 600 mg tablet 600 mg PO QID PRN pain #30 tabs 01/31/21 02/18/22 Rx diltiazem HCl 120 mg capsule,24 See Rx Instructions .Route 10/25/21 02/18/22 Rx hr,extended release (Tiadylt ER) .COMPLEX #90 caps lisinopril 20 See Rx Instructions .Route 01/21/22 02/18/22 Rx mg-hydrochlorothiazide 25 mg tablet .COMPLEX #90 tabs cholecalciferol (vitamin D3) 1 cap QAM 01/29/22 02/18/22 History hydrocodone 10 mg-acetaminophen 1 tablet QID PRN Pain 01/29/22 02/18/22 History 325 mg tablet melatonin 1 mg tablet 1 mg PO QHS 02/05/22 02/18/22 History Patient hx anesthesia problems: none Family hx anesthesia problems: none Results Review: All pre-operative results and documents have been reviewed as part of the pre-operative evaluation. [facility] Past Medical History Medical History Afib Asthma BMI 26.0-26.9,adult Chronic obstructive pulmonary disease Ex-smoker for less than 1 year 06/13/2020 GERD (gastroesophageal reflux disease) Hypertension Irregular heart beat Lung nodule TEMO (obstructive sleep apnea) Osteoporosis PAT (paroxysmal atrial tachycardia) PVT (paroxysmal ventricular tachycardia) SOB (shortness of breath) Strangulated femoral hernia Torn rotator cuff RT Surgical History Surgical History H/O hernia repair (~2020) 11/14/20 1. Strangulated right femoral hernia repair 2. Small-bowel (ileum) resection with qads-ps-kbwo anastomosis History of hysterectomy (~2000) Family History Family History Mother Family history of malignant neoplasm of breast in first degree relative Unknown Hypertension Other Family history of arthritis Family history of malignant neoplasm of thyroid Social History Social History Smoking packs per day: 1 Smoking cigarettes per day: 20.0 Years smoked: 50 Smoking pack-years: 50.00 Smoking status: Former smoker Tobacco type: cigarettes Second hand tobacco smoke exposure: No Smoking end date: 12/13/20 Additional smoking assessment comments: PT DENIES ALL FORMS OF TOBACCO USE Alcohol intake: never Subs
[2022-02-18] MEDS: ceFAZolin 2 GM/D5W 50 ML 2 GM/50 ML BAG IVPB ×3 (07:27→23:52)
[2022-02-18] MEDS: VANCOMYCIN HCL 1,000 MG VIAL 1000 MG TOPICAL (08:33)
[2022-02-18] MEDS: HYDROGEN PEROXIDE 3% SOLN(*SP) 473 ML BOTTLE IRRIGATION (08:34)
[2022-02-18] MEDS: fentaNYL CITRATE INJ (*CRX) 100 MCG/2 ML VIAL 25 MCG IV PUSH ×5 (10:09→10:43)
[2022-02-18] MEDS: HYDROmorphone HCL INJ (*CRX) 1 MG/ML SYR 0.25 MG IV PUSH ×3 (10:55→11:45)
--- NOTE | 2022-02-18 12:28 | PC.NURSE ---
This patient, Raven Sharma, was admitted to [facility] Surg Room 301-01. Patient/family oriented to hospital policies and general routines including ID bracelet, bed and alarms, visiting hours, pain management, procedures, bathroom and other care routines, personal items, smoking policy, room service/diet, and visiting hours. Information on how to activate the Rapid Response Team has been discussed. Patient/Family are encouraged to report perceived risks to care and to ask questions if they do not understand what they are told or what they should do.
[2022-02-18] MEDS: SODIUM CHLORIDE 0.9% IV 1,000 ML 125 ML IV CONT (12:42)
[2022-02-18] MEDS: oxyCODONE HCL (*CRX) 5 MG TAB IR 10 MG PO ×2 (14:00→20:06)
[2022-02-18] MEDS: SENNA/DOCUSATE SODIUM TABLET 2 TAB PO (17:06)
[2022-02-18] MEDS: ASPIRIN 81 MG ENTERIC TABLET PO (17:07)
--- NOTE | 2022-02-18 17:55 | PM.IMCN ---
Assessment and Plan Assessment and plan (1) Rotator cuff arthropathy of left shoulder: Code(s): M12.812 - Other specific arthropathies, not elsewhere classified, left shoulder Status: Acute Assessment and Plan: -postop care per Ortho -Pain management per Ortho -DVT prophylaxis per ortho -dressing to left shoulder is dry and intact without any drainage sling is intact to left arm. May consider ice (2) Hypertension: Qualifiers: Hypertension type: essential hypertension Qualified Code(s): I10 - Essential (primary) hypertension Code(s): I10 - Essential (primary) hypertension Status: Acute Assessment and Plan: -continue with prednisone -continue with hydrochlorothiazide -monitor BMP daily (3) Chronic obstructive pulmonary disease: Qualifiers: COPD type: unspecified COPD Qualified Code(s): J44.9 - Chronic obstructive pulmonary disease, unspecified Code(s): J44.9 - Chronic obstructive pulmonary disease, unspecified Status: Acute Assessment and Plan: -continue with albuterol p.r.n.. -lung sound clear at this time. (4) TEMO (obstructive sleep apnea): Code(s): G47.33 - Obstructive sleep apnea (adult) (pediatric) Status: Acute Assessment and Plan: -the patient only wears oxygen 2 L per nasal cannula at night. She does not wear CPAP. I did order oxygen for her to be worn at night. (5) Chronic a-fib: Code(s): I48.20 - Chronic atrial fibrillation, unspecified Status: Acute Assessment and Plan: -normal rate is normal at this time -continue with diltiazem (6) Depression with anxiety: Code(s): F41.8 - Other specified anxiety disorders Status: Acute Assessment and Plan: -Continue with Celexa HPI Data of Consult Consult date: 02/18/22 Requesting Physician: Bart Bhatt MD Primary Care Provider: Delisa Clancy, PAC Consult Narrative Narrative: Raven Sharma is a 77 year old female who has a history of shoulder pain she is right-hand dominant. She has had chronic pain. That has increased since . The patient stated she could barely use her left arm. She takes hydrocodone and ibuprofen for back issues. She is planning on getting a nerve stimulator for her back but wants to get her shoulder situated 1st. The patient underwent a partial left reverse total shoulder arthroplasty by Dr. bhatt today. She has a history of atrial fibrillation and COPD. She stated that she has gotten a cardiology clearance prior to the surgery. See anesthesia record an operative report. The hospitalist group was asked to consult on the patient for medical management on the date of service of 02/18/2022. Review of Systems Review of Systems: See HPI All systems reviewed & are unremarkable except as noted in HPI and below Constitutional: Constitutional: Reports as per HPI and Reports no additional constitutional complaints Eyes: Eyes: Reports as per HPI and Reports no additional eye complaints ENT: Reports system reviewed and no additional complaints, except as documented and Reports Normal hearing present Cardiovascular: Cardiovascular: Reports no additional cardiovascular complaints Respiratory: Respiratory: Reports no additional respiratory complaints and Reports no additional respiratory complaints Gastrointestinal: Gastrointestinal: Reports as per HPI and Reports no additional gastrointestinal complaints Musculoskeletal: Musculoskeletal: Reports no additional musculoskeletal complaints Integumentary/Breasts: Skin/Breast: Reports system reviewed and no additional complaints, except as docu and Reports as per HPI Neurologic: Reports system reviewed and no additional complaints, except as documented, Reports as per HPI and Reports Normal hearing present Psychiatric: Psychiatric: Reports no additional psychiatric complaints and Reports as per HPI Endocrine: Endocrine: Reports no addit
--- NOTE | 2022-02-18 18:03 | W.PM.PROC2 ---
Procedure Note - Detailed Date of Procedure 02/18/22 Pre-op Diagnosis Prim OA Left Shoulder Post-op Diagnosis Same Procedure Performed Reverse total shoulder arthroplasty, left shoulder. Surgeon Bart Bhatt MD Plumbing Designer Jocelyn Cullen PA-C Anesthesia General and Regional (Interscalene block.) Findings Good bone quality. Massive rotator cuff tear. Description of Procedure The patient was given an interscalene block in the preoperative area. Preoperative antibiotics were given. The patient was transferred to the operating room and a general anesthetic was administered. The beach chair position was used at 45 degrees. All bony prominences were padded. The head was carefully stabilized on the [facility] wet process head miller. A sterile prep and drape was performed in the usual manner with ChloraPrep. A longitudinal incision was created at the anterior shoulder just lateral to the deltopectoral interval. Hydrogen peroxide was placed on the incision and then rinsed after one minute. Careful dissection was performed to expose the interval and protect the cephalic vein. The vein was retracted medially. The upper border of the pectoralis was released. Anterior circumflex vessel branches were suture ligated. The biceps was [tenodesed]. A subscapularis tenotomy was performed. The inferior capsule was released, exposing the humeral head. Osteophytes were removed. Care was taken to stay on bone to protect the axillary nerve. The anatomic head cut was taken with the oscillating saw. The guide pin was placed, central drilling performed, and the broach trial inserted. The neck anteversion and inclination were carefully assessed. The cut protector was placed, and attention was turned to the glenoid. Retractors were placed. Releases were carried out for exposure. The subscapularis was mobilized, the inferior capsule and long head of triceps released, and the superior and middle glenohumeral ligaments released as well. Labral tissue was resected as needed. The sizing template was used to assess the baseplate position low on the glenoid. A guide pin was placed. Minimal reaming was used to accomplish a flat surface without violating the subchondral bone. Version was corrected according to preoperative templating. The boss was drilled, and the real component was impacted into position. Supplemental locking screws were placed peripherally. The undersized central screw did not engage the post. The glenosphere was impacted into the taper. The proximal humerus was reamed for the inset component. The humeral components were trialed. The real humeral stem, tray, and insert were impacted into position. The shoulder was copiously irrigated periodically with pulsatile lavage. The shoulder was reduced and stability confirmed. 1 gram of Vancomycin powder was placed in the joint. The biceps tenodesis was incorporated with the pectoralis tendon repair. The deltopectoral space was reapproximated with number 1 Vicryl. The remaining tissue was closed with 0 Quill and 2-0 Quill running suture and steri-strips. A sterile silver occlusive dressing and shoulder immobilizer were placed. The patient was transferred to the recovery room. Postoperative radiographs demonstrated that the central screw passed several mm through the locking mechanism of the post. Base plate compression and stability were obtained with the 3 peripheral screws. Physician dietetic assistant, Jocelyn Cullen PA-C, required for surgery; including patient positioning, draping, tissue retraction, maintaining instrument position, wound closure, and dressing placement. Implants Shoulder Innovations reverse TSA size 1 stem. +0 polyethylene insert. Standard baseplate. 33+6 for mm glenosphere. Estimated Blood Loss -150.0 Drains No Pathology None sent Complications No immediate complications Condition Stable Disposition PACU [facility] Billing Surgery - Charge Forward: Surgery Billing
[2022-02-18] MEDS: FAMOTIDINE 20 MG TABLET PO (20:06)
[2022-02-18] MEDS: ALBUTEROL SULFATE (*SP) AEROSOL 1 PUFF INHALATION (20:38)
[2022-02-19 01:38] VITALS: BP 130/62; PULSE 72; RESP 18; TEMP 36.2; O2SAT 100
--- NOTE | 2022-02-19 04:52 | PC.NURSE ---
Pt started the shift off with pain. Pt given pain medication that she states helped. Pt compliant with treatment. Pt able to ambulate to the bathroom several times over night. Fluids stopped per order. Pt resting comfortably. Will continue to monitor pt.
[2022-02-19] MEDS: oxyCODONE HCL (*CRX) 5 MG TAB IR 10 MG PO ×2 (04:56→11:42)
[2022-02-19 05:38] VITALS: BP 145/69; PULSE 81; RESP 19; TEMP 35.5; O2SAT 100
[2022-02-19 07:45] VITALS: PULSE 73; O2SAT 96
[2022-02-19] MEDS: FLUTICASONE/UMECLIDIN/VILANTER 100-62.5-25 MCG ELLIPTA 1 PUFF INHALATION (07:45)
[2022-02-19] MEDS: ceFAZolin 2 GM/D5W 50 ML 2 GM/50 ML BAG IVPB (08:23)
[2022-02-19] MEDS: SENNA/DOCUSATE SODIUM TABLET 2 TAB PO (08:24)
[2022-02-19] MEDS: CITALOPRAM HYDROBROMIDE 10 MG TABLET PO (08:24)
[2022-02-19] MEDS: FAMOTIDINE 20 MG TABLET PO (08:24)
[2022-02-19] MEDS: hydroCHLOROthiazide 25 MG TABLET PO (08:24)
[2022-02-19] MEDS: lisinopriL 20 MG TABLET PO (08:24)
[2022-02-19] MEDS: ASPIRIN 81 MG ENTERIC TABLET PO (08:24)
--- NOTE | 2022-02-19 09:34 | PM.IMPN ---
Progress Note: A&P Assessment and Plan (1) Rotator cuff arthropathy of left shoulder: Code(s): M12.812 - Other specific arthropathies, not elsewhere classified, left shoulder Status: Acute Assessment and Plan: postop care per Ortho (2) Hypertension: Qualifiers: Hypertension type: essential hypertension Qualified Code(s): I10 - Essential (primary) hypertension Code(s): I10 - Essential (primary) hypertension Status: Chronic Assessment and Plan: chronic, vitals reviewed and stable. continue lisinopril/HCTZ and diltiazem. (3) Chronic obstructive pulmonary disease: Qualifiers: COPD type: unspecified COPD Qualified Code(s): J44.9 - Chronic obstructive pulmonary disease, unspecified Code(s): J44.9 - Chronic obstructive pulmonary disease, unspecified Status: Chronic Assessment and Plan: Chronic, not in acute exacerbation. Continue Trelegy and PRN albuterol (4) TEMO (obstructive sleep apnea): Code(s): G47.33 - Obstructive sleep apnea (adult) (pediatric) Status: Acute Assessment and Plan: Chronic, continue home oxygen 2 L per nasal cannula at night. (5) Chronic a-fib: Code(s): I48.20 - Chronic atrial fibrillation, unspecified Status: Acute Assessment and Plan: Chronic, HR and BP reviewed and stable. continue with diltiazem. Patient is not on anticoagulation at home. (6) Depression with anxiety: Code(s): F41.8 - Other specified anxiety disorders Status: Chronic Assessment and Plan: Chronic, in remission, continue with Celexa Plan Thank you for allowing us to participate in your patient's care. Please do not hesitate to call with any questions. Time Spent With Patient Time with patient: 15 - 25 minutes Subjective Date/time seen: 02/19/22 09:34 Patient is a 77 year old female with medical comorbidities of chronic atrial fibrillation, hypertension, and COPD who underwent partial left reverse total shoulder arthroplasty by Dr. Bhatt on 02/18/22. Patient denies new symptoms or overnight events. No chest pain, SOB, palpitations, N/V/D or abd pain. She has not had a BM, but is passing flatus. Review of Systems Review of Systems: All systems reviewed & are unremarkable except as noted in HPI and below Exam Narrative: General: No acute respiratory distress, sitting up in the chair. Neuro: awake, alert and oriented x4, speech clear, no focal neuro deficits noted HEENT:? normocephalic, atraumatic, Pupils equal or round, EOM intact, sclerae anicteric, mucous membranes moist. Respiratory: clear to auscultation bilaterally, nonlabored breathing Cardio: irregularly irregular rate and rhythm. No murmur, gallop, or rubs. Abdomen:? nondistended, normoactive bowel sounds, soft, nontender to palpation Extremities: no edema, erythema, or tenderness to palpation, DP pulses 2+ bilaterally, Left arm immobilizer with intact sensation and movement. Grossly normal ROM all other extremities. Skin: no rashes or lesions, warm and dry Psych: appropriate mood and affect, pleasant. Objective Data Vital Signs Vital Signs: Vital Signs - 24 hr 02/18/22 09:55 02/18/22 10:16 02/18/22 10:30 Temperature 98.3 F Pulse Rate 95 74 62 Respiratory Rate 24 H 30 H 18 Blood Pressure 158/75 H 145/66 H 138/63 Pulse Oximetry 100 100 100 Oxygen Delivery Simple Face Mask Simple Face Mask Nasal Cannula Oxygen Flow Rate 10 10 2 02/18/22 10:45 02/18/22 11:00 02/18/22 11:15 Temperature Pulse Rate 66 71 62 Respiratory Rate 18 20 16 Blood Pressure 138/57 L 128/78 121/57 L Pulse Oximetry 100 96 96 Oxygen Delivery Nasal Cannula Nasal Cannula Nasal Cannula Oxygen Flow Rate 1 1 1 02/18/22 11:30 02/18/22 11:45 02/18/22 12:08 Temperature 98.3 F Pulse Rate 63 60 62 Respiratory Rate 18 16 16 Blood Pressure 129/57 L 133/60 130/56 L Pulse Oximetry 96 96 96 Oxygen De
[2022-02-19 09:38] VITALS: BP 106/52; PULSE 93; RESP 19; TEMP 36.2; O2SAT 100
--- NOTE | 2022-02-19 12:26 | PM.DS ---
DS: Admitting Diagnosis Discharge Date 02/19/22 Admitting Diagnosis Massive rotator cuff tear. DS: Discharge Diagnosis Discharge Diagnosis Plan Postop day 1: Left reverse total shoulder arthroplasty. Patient tolerated procedure well. No complications. Pain manageable with pain medication. No numbness or tingling. We had a lengthy discussion regarding postoperative wound care, limitations, expectations, and exercises. Patient shows good understanding. She has had initial physical therapy and is tolerating it well. DVT prophylaxis: 81 mg baby aspirin b.i.d. for 14 days. Pain medication: Percocet. Ibuprofen. Patient has followup appointment with Dr. Bhatt in 3 weeks. DS: Summary Hospital Course Hospital Course: Patient presented for reverse total shoulder arthroplasty. Tolerated procedure well. Has had initial PT and OT. She is comfortable going home. Her daughter will be staying with her. Status at Discharge Functional status at discharge: independent ambulation Overall status at discharge: patient is progressing back to baseline Time Spent with Patient Time attestation: Total time spent providing and/or coordinating discharge services: Exam Narrative: Normal weight 77 y/o Female. Resting comfortably in chair. Wearing sling. Dressing dry and intact with no drainage. Moderate swelling. Moderate ecchymosis. No erythema. No hematoma. Range of motion limited due to pain. Calf nontender. Neurologic status intact. No varicosities. Distal pulses palpable. Discharge Plan Discharge Patient Disposition: Home, Self-Care Discharge Instructions: See green instruction sheets Stand Alone Forms: General Discharge Instructions Follow-up/Referrals: Jocelyn Cullen PA [Physician Absorption Plant Operator Helper] - Discharge Medications: New aspirin 81 mg tablet,delayed release (DR/EC) 81 mg PO BID 14 Days Qty: 28 0RF oxycodone-acetaminophen 5-325 mg tablet 1 - 2 tablet PO Q4-6H MDD 6 PRN (Reason: pain) Qty: 30 0RF Continued ibuprofen 600 mg tablet 600 mg PO QID PRN (Reason: pain) Qty: 30 0RF magnesium carbonate 250 mg capsule 250 mg PO TID melatonin 1 mg tablet 1 mg PO QHS Calcium 600 + Minerals 600 mg calcium- 200 unit tablet 1 tablet PO DAILY Label Comments: QAM dorzolamide 2 % drops 1 drop EACH EYE TID albuterol sulfate [ProAir HFA] 90 mcg/actuation HFA aerosol inhaler 1 inhalation INHALATION Q4H PRN (Reason: Shortness Of Breath) citalopram 10 mg tablet 10 mg PO DAILY Label Comments: QAM cholecalciferol (vitamin D3) 1 cap QAM Che Ellipta 100-62.5-25 mcg Blister With Device 1 inh INHALATION DAILY diltiazem HCl [Tiadylt ER] 120 mg capsule,extended release 24 hr See Rx Instructions .ROUTE .COMPLEX Qty: 90 2RF Dose Instruction: TAKE 1 CAPSULE BY MOUTH EVERY DAY Label Comments: TQAM Rx Instructions: TAKE 1 CAPSULE BY MOUTH EVERY DAY lisinopril-hydrochlorothiazide 20-25 mg tablet See Rx Instructions .ROUTE .COMPLEX Qty: 90 2RF Dose Instruction: 1 TABLET BY MOUTH DAILY Label Comments: QAM Rx Instructions: 1 TABLET BY MOUTH DAILY Held hydrocodone-acetaminophen 10-325 mg tablet 1 tablet QID PRN (Reason: Pain) Hold Instructions: Resume on 03/12/22. Hold while taking Oxycodone.
--- NOTE | 2022-02-19 12:34 | PC.NURSE ---
discharge order in from surgery. Hospitalist called at this time to make sure it is okay for discharge on their end also, and got a yes. will proceed to discharge pt.
== END 2022-02-19 13:45 | disposition home or self-care (01) ==
LOC: ANHSURGERY 06:20 → ANH3MEDSUR 11:54
PROVIDERS: PCP Physician Assistant; Visit Provider Orthopaedic Surgery
PROC: (CPT 23472; principal; 2022-02-18 07:30)
DX: M19.012 Primary osteoarthritis, left shoulder (principal); M75.102 Unspecified rotator cuff tear or rupture of left shoulder, not specified as traumatic; Z79.51 Long term (current) use of inhaled steroids; J45.909 Unspecified asthma, uncomplicated; J44.9 Chronic obstructive pulmonary disease, unspecified; Z87.891 Personal history of nicotine dependence; K21.9 Gastro-esophageal reflux disease without esophagitis; I10 Essential (primary) hypertension; I49.9 Cardiac arrhythmia, unspecified; M81.0 Age-related osteoporosis without current pathological fracture; G47.33 Obstructive sleep apnea (adult) (pediatric); I47.1 Supraventricular tachycardia; I47.2 Ventricular tachycardia; E66.9 Obesity, unspecified; Z68.30 Body mass index [BMI] 30.0-30.9, adult; F41.9 Anxiety disorder, unspecified; I48.20 Chronic atrial fibrillation, unspecified
CPT/HCPCS: 23472; 36415; 73030; 86850; 86900; 86901; 94640; 97110; 97161; 97165; 97530; 97535; A4565; A9270; J0131; J0171; J0330; J0690; J1170; J1885; J2704; J2795; J3010; J3370; J7030; J7120

== ENCOUNTER 2022-06-23 13:36 | Outpatient (CLI) | payer MEDICARE, OTHER, SELFPAY ==
--- NOTE | ~2022-06-23 | CT_ITS ---
EXAMINATION:CT diagnostic chest wo con DATE: 06/23/2022 14:12 INDICATION: Other nonspecific abnormal finding in lung field. TECHNIQUE: Computed tomography (CT) of the chest was performed without intravenous contrast. Automate d exposure control and iterative reconstruction technique were employed. The dose-length product (DLP ) was 85.27 mGy-cm. COMPARISON: Chest CT 08/25/2021, 07/17/2019 FINDINGS: There is mild scarring at the lung apices. There is moderate emphysema. Calcified right lalit g nodules and calcified right hilar lymph nodes are consistent with old granulomatous disease. There is complete collapse of right middle lobe. Again seen is a 4 mm nodule in right upper lobe. There is a new 10 mm nodule in right upper lobe. Again seen are nodules and airspace opacities in basilar righ t lower lobe with mild worsening. There are worsened nodules in left upper lobe measuring up to 8 mm. There are nodules in left lower lobe measuring up to 7 mm with worsening of the largest nodule. Ther e is a trace right pleural effusion. The heart size is normal. There are coronary artery calcificatio ns. No pericardial effusion. There is ectasia of ascending aorta measuring 4.3 cm. There is a left sh oulder arthroplasty. There is a chronic burst fracture of T11. There is mild chronic anterior wedging of multiple vertebral bodies. IMPRESSION: 1. Worsened multifocal lung disease, probably infection. Consider noncontrast low-dose chest CT in 3 months. 2. Moderate emphysema. Reviewed, dictated and finalized at location E. L BUILDER IMPRESSION: 1. Worsened multifocal lung disease, probably infection. Consider noncontrast l ow-dose chest CT in 3 months. 2. Moderate emphysema.
--- NOTE | ~2022-06-23 | CT_ITS ---
EXAMINATION: CT shoulder LT wo con DATE: 06/23/2022 14:12 INDICATION: Left scapular pain. TECHNIQUE: Computed tomography (CT) of the left shoulder was performed without intravenous contrast. Automated exposure control and iterative reconstruction technique were employed. The dose-length prod uct was 405.63 mGy-cm. COMPARISON: Left shoulder radiographs 06/18/2022, chest CT 08/25/2021, 07/17/19 FINDINGS: There is moderate emphysema. There are scattered nodules in left lung measuring up to 8 mm. Some of the nodules are stable and some are mildly increased in size from 08/25/2021. For example, an 8 mm nodule in left upper lobe previously measured 6 mm. There is a reverse njqg-mug-wlwkgn total le ft shoulder arthroplasty in near-anatomic alignment. No periprosthetic lucency to suggest loosening o r infection. There is a fracture of scapular spine. The lateral fracture fragment demonstrates 4 mm p osterior displacement and 4 mm superior displacement. The acromioclavicular joint is normal. IMPRESSION: 1. Fracture of left scapular spine. 2. Reverse gdfa-wqg-pjiiyl total left shoulder arthroplasty in near-anatomic alignment. 3. Left lung nodules measuring up to 8 mm with mild worsening from 08/25/2021, which may be infection or less likely metastatic disease. Noncontrast low-dose chest CT is recommended. 4. Moderate emphysema. Reviewed, dictated and finalized at location A. UCTION CHECKER IMPRESSION: 1. Fracture of left scapular spine. 2. Reverse mjmv-pwu-mosoqu total left shoulder arthroplasty in near-anatomic al ignment. 3. Left lung nodules measuring up to 8 mm with mild worsening from 08/25/2021, w hich may be infection or less likely metastatic disease. Noncontrast low-dose c hest CT is recommended. 4. Moderate emphysema.
== END 2022-06-23 13:37 | disposition home or self-care (01) ==
PROVIDERS: PCP Physician Assistant; Visit Provider Orthopaedic Surgery
DX: J43.9 Emphysema, unspecified (principal); S42.192A Fracture of other part of scapula, left shoulder, initial encounter for closed fracture; X58.XXXA Exposure to other specified factors, initial encounter; R91.8 Other nonspecific abnormal finding of lung field
CPT/HCPCS: 71250; 73200

== ENCOUNTER 2022-07-19 11:24 | Outpatient (CLI) | payer MEDICARE, OTHER, SELFPAY | END 2022-07-19 11:25 | disposition home or self-care (01) | PROVIDERS: PCP Physician Assistant; Visit Provider Nurse Practitioner Family | DX: J18.9 Pneumonia, unspecified organism (principal) | CPT/HCPCS: 87015; 87070; 87102; 87106; 87116; 87149; 87205; 87206 ==

== ENCOUNTER 2022-08-11 15:41 | Outpatient (CLI) | payer MEDICARE, OTHER, SELFPAY | END 2022-08-11 15:42 | disposition home or self-care (01) | PROVIDERS: PCP Physician Assistant; Visit Provider Nurse Practitioner Family | DX: R09.3 Abnormal sputum (principal) | CPT/HCPCS: 87015; 87070; 87077; 87102; 87106; 87116; 87149; 87186; 87205; 87206 ==

== ENCOUNTER 2022-09-13 12:46 | Outpatient (CLI) | payer MEDICARE, OTHER, SELFPAY ==
--- NOTE | ~2022-09-13 | CT_ITS ---
EXAMINATION:CT diagnostic chest wo con DATE: 09/13/2022 13:09 INDICATION: Pulmonary nodules. TECHNIQUE: Computed tomography (CT) of the chest was performed without intravenous contrast. Automate d exposure control and iterative reconstruction technique were employed. The dose-length product (DLP ) was 102.15 mGy-cm. COMPARISON: Chest CT 06/23/2022, 08/25/2021 FINDINGS: There is moderate emphysema. There is partial collapse of right middle lobe. There is atele ctasis and scarring in the right lower lobe. There is mild atelectasis in left lower lobe and lingula . Calcified right lung nodules and calcified hilar lymph nodes are consistent with old granulomatous disease. There is a 9 mm nodule in right upper lobe that measured 10 mm on 06/23/2022. There are multi ple other nodules in the lungs measuring up to 7 mm without change. No pleural effusion. There is lef t atrial enlargement of the heart. There are coronary artery calcifications. No pericardial effusion. The central pulmonary arteries are enlarged, consistent with pulmonary arterial hypertension. There is ectasia of ascending aorta measuring 4.2 cm. There is a total left shoulder arthroplasty. There is a chronic burst fracture of T11. There is mild thoracic spondylosis and severe lumbar spondylosis. IMPRESSION: 1. Stable pulmonary nodules, probably infection. Consider noncontrast low-dose chest CT in 6 months. 2. Moderate emphysema. Reviewed, dictated and finalized at location A.
== END 2022-09-13 12:47 | disposition home or self-care (01) ==
LOC: ANHIMG 12:48
PROVIDERS: PCP Physician Assistant; Visit Provider Nurse Practitioner Family
DX: R91.1 Solitary pulmonary nodule (principal); R91.8 Other nonspecific abnormal finding of lung field; J43.9 Emphysema, unspecified
CPT/HCPCS: 71250

== ENCOUNTER 2023-02-09 10:00 | Outpatient (CLI) | payer MEDICARE, OTHER, SELFPAY ==
--- NOTE | 2023-02-09 10:27 | ECHO_ITS ---
Patient Info Name: Raven Sharma Age: 78 years : 1945 Gender: Female Ht: 61 in Wt: 159 lbs BSA: 1.79 m2 HR: 85 bpm BP: 154 / 94 mmHg Technical Quality: Fair Exam Date: 02/09/2023 10:49 AM Exam Location: [facility] Patient Status: Outpatient Admit Date: 02/09/2023 Staff Ordering Physician: Edwin Perales DO Sprinkler Inspector: Maddi Blas RDCS Attending Provider: Edwin Perales DO Referring Physician: Diaz SANCHEZ; Exam Type: CA echo doppler color flow Study Info Indications I51.9 - Heart disease, unspecified Complete two-dimensional, color flow and Doppler transthoracic echocardiogram is performed. Summary 1. Complete two-dimensional, color flow and Doppler transthoracic echocardiogram is performed. 2. Left ventricular chamber dimension is normal. 3. Ventricular septum is sigmoid shaped. No LVOT obstruction. 4. Left ventricular systolic function is normal, estimated at 55-60%. 5. There is mild concentric increased left ventricular wall thickness. 6. The left ventricular diastolic function is grade II diastolic dysfunction. 7. E/e' 9 is minimally elevated. 8. Global longitudinal strain is mildly abnormal at -16.2%. 9. Left atrial chamber dimension is moderately enlarged. 10. There is mild aortic valve sclerosis. 11. There is mild to moderate aortic valve regurgitation. 12. The mitral valve has mildly calcified annulus. 13. There is mild mitral valve regurgitation. 14. There is mild tricuspid valve regurgitation. 15. No pulmonary hypertension, estimated pulmonary arterial systolic pressure is 31 mmHg. Left Ventricle E/e' 9 is minimally elevated. Global longitudinal strain is mildly abnormal at -16.2%. Ventricular septum is sigmoid shaped. No LVOT obstruction. Left ventricular chamber dimension is normal. Left ventricular systolic function is normal, estimated at 55-60%. There is mild concentric increased left ventricular wall thickness. The left ventricular diastolic function is grade II diastolic dysfunction. Right Ventricle Right ventricular chamber dimension is normal. Right ventricular systolic function is normal. Left Atria Left atrial chamber dimension is moderately enlarged. Right Atria Right atrial chamber dimension is normal. Aortic Valve The aortic valve is trileaflet. There is mild aortic valve sclerosis. There is no aortic valve stenosis. There is mild to moderate aortic valve regurgitation. Pulmonic Valve There is no pulmonic regurgitation. Mitral Valve The mitral valve has mildly calcified annulus. There is no mitral valve stenosis. There is mild mitral valve regurgitation. Tricuspid Valve There is mild tricuspid valve regurgitation. No pulmonary hypertension, estimated pulmonary arterial systolic pressure is 31 mmHg. Pericardium/Pleural There is no pericardial effusion. Inferior Vena Cava Normal inferior vena cava with >50% collapse upon inspiration consistent with normal right atrial pressure, 5 mmHg. Aorta The aortic root size at the sinus of Valsalva is normal. Left Ventricular Outflow Tract Name Value Normal LVOT 2D LVOT Diameter 2.0 cm LVOT Doppler LVOT Peak Gradient 6 mmHg LVOT Mean Gradient
== END 2023-02-09 10:01 | disposition home or self-care (01) ==
LOC: ANHCARD 10:01
PROVIDERS: PCP Physician Assistant; Visit Provider Internal Medicine Cardiovascular Disease
DX: I51.9 Heart disease, unspecified (principal); I34.0 Nonrheumatic mitral (valve) insufficiency; I36.1 Nonrheumatic tricuspid (valve) insufficiency; I35.1 Nonrheumatic aortic (valve) insufficiency
CPT/HCPCS: 93306

== ENCOUNTER 2023-03-15 13:39 | Outpatient (CLI) | payer MEDICARE, OTHER, SELFPAY ==
--- NOTE | ~2023-03-15 | CT_ITS ---
CT Scan of the Chest without Contrast: Clinical Indication: Lung nodules Technique: Contiguous sections were acquired throughout the chest without intravenous contrast. Dose reduction technique was used on this scan by utilizing automated exposure control and iterative recon struction technique. The dose-length product (DLP) was 110.14 mGy-cm. COMPARISON: 09/13/2022 Findings: There is no evidence of any significant mediastinal, hilar or axillary lymphadenopathy. There are ath erosclerotic calcifications of the aorta and coronary arteries. There is no evidence of pleural or pericardial effusion. Multiple pulmonary nodules are noted bilaterally, with upper lobe predominance. There is a 8 mm left upper lobe pulmonary nodule (axial image 40), which appears to be increase in size since 09/13/2022, an d new since 06/23/2022. There is a new area of nodular opacity in the right upper lobe, somewhat elong ated measuring 1.4 x 0.6 cm (axial image 31), which is new from prior exams. Remaining pulmonary nodu les are unchanged. Chronic scarring and/or atelectasis at the right middle lobe and right lung base i s unchanged. Images through the upper abdomen reveal no abnormalities. Chronic T12 compression fracture again note d. Impression: New 1.4 x 0.6 cm, somewhat elongated nodular opacity in the right upper lobe. 8 mm left upper lobe pu lmonary nodule is increasing since 06/23/2022. These 2 nodules in particular are indeterminate. Contin ued imaging follow-up advised in 3-6 months. Additional upper lobe predominant bilateral pulmonary nodules are essentially unchanged. Stable right middle lobe and right lower lobe chronic scarring or atelectasis. Chronic T12 compression fracture. Reviewed, dictated and finalized at location M. Impression: New 1.4 x 0.6 cm, somewhat elongated nodular opacity in the right upper lobe. 8 mm left upper lobe pulmonary nodule is increasing since 06/23/2022. These 2 nod ules in particular are indeterminate. Continued imaging follow-up advised in 3- 6 months. Additional upper lobe predominant bilateral pulmonary nodules are essentially u nchanged. Stable right middle lobe and right lower lobe chronic scarring or atelectasis. Chronic T12 compression fracture.
== END 2023-03-15 13:40 | disposition home or self-care (01) ==
PROVIDERS: PCP Family Medicine; Visit Provider Nurse Practitioner Family
DX: R91.8 Other nonspecific abnormal finding of lung field (principal); J98.11 Atelectasis; S22.080A Wedge compression fracture of T11-T12 vertebra, initial encounter for closed fracture
CPT/HCPCS: 71250

== ENCOUNTER 2023-06-29 12:33 | Outpatient (CLI) | payer MEDICARE, OTHER, SELFPAY ==
--- NOTE | ~2023-06-29 | CT_ITS ---
CT Scan of the Chest without Contrast: Clinical Indication: Pulmonary mycobacterial infection Technique: Contiguous sections were acquired throughout the chest without intravenous contrast. Dose reduction technique was used on this scan by utilizing automated exposure control and iterative recon struction technique. The dose-length product (DLP) was 121.98 mGy-cm. COMPARISON: 03/15/2023 Findings: There is no evidence of any significant mediastinal, hilar or axillary lymphadenopathy. The mediastin al soft tissues appear normal. There is no evidence of pleural or pericardial effusion. Multiple pulmonary nodules are unchanged. This includes 5 mm nodule in the superior segment left lowe r lobe (axial image 39), 7 mm left upper lobe nodule (axial image 40), 10 mm solid spiculated nodule in the right upper lobe (axial image 37), as well as biapical pulmonary nodules. Moderate to advanced emphysema in the upper lobes is noted. Patchy consolidation in the right middle lobe is unchanged, p ossibly chronic scarring and/or atelectasis. There is chronic scarring at the right lung base, unchan ged. Images through the upper abdomen reveal no abnormalities. Severe compression fracture deformity of T1 2 is present, unchanged. Impression: Bilateral pulmonary nodules are unchanged from prior exam. Consider continued follow-up to document 2 years of stability. Moderate to advanced emphysema of the upper lobes. Stable T12 compression fracture. Reviewed, dictated and finalized at [facility]. H COUNSELOR Impression: Bilateral pulmonary nodules are unchanged from prior exam. Consider continued f ollow-up to document 2 years of stability. Moderate to advanced emphysema of the upper lobes. Stable T12 compression fracture.
== END 2023-06-29 12:34 | disposition home or self-care (01) ==
LOC: ANHIMG 12:36
PROVIDERS: PCP Family Medicine; Visit Provider Nurse Practitioner Family
DX: A31.0 Pulmonary mycobacterial infection (principal); R91.1 Solitary pulmonary nodule; J43.9 Emphysema, unspecified
CPT/HCPCS: 71250

== ENCOUNTER 2023-07-01 13:56 | Outpatient (CLI) | payer MEDICARE, OTHER, SELFPAY ==
--- NOTE | ~2023-07-01 | MR_ITS ---
MRI of the lumbar spine Clinical History: Back pain, postlaminectomy syndrome Technique: Axial T2-weighted images, and sagittal T1-weighted, T2-weighted, and T2 fat-sat images wer e acquired. COMPARISON: 02/23/2021 Findings: No acute fracture identified. There is chronic, severe compression fracture of T11, which i s new from prior exam. There is grade 1 retrolisthesis of T12 over L1, and of L1 over L2. There is pr obable minimal grade 1 anterolisthesis of L2 over L3. No suspicious bone marrow signal abnormality se en. At L1-L2, there is severe degenerative disc narrowing. There is disc bulge and advanced facet arthrop athy. There is minimal central canal stenosis and severe bilateral neural foraminal compromise. At L2-L3, there is diffuse disc bulge with severe facet arthropathy. There is mild central canal sten osis. There is severe bilateral neural foraminal narrowing. At L3-L4, there is mild disc bulge with advanced facet arthropathy. No central canal stenosis. There is moderate to advanced right neural foraminal narrowing, and moderate left neural foraminal narrowin g. At L4-L5, there is mild diffuse disc bulge and severe facet arthropathy. There is moderate central ca nal stenosis. There is mild to moderate bilateral neural foraminal narrowing. At L5-S1, there is disc bulge and severe facet arthropathy. No denys central canal stenosis or neural foraminal narrowing. 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 Paravertebral soft tissues are otherwise unremarkable. Impression: Chronic severe compression fracture of T11. Multiple grade 1 retrolistheses in the upper lumbar spine, as detailed above. Moderate to advanced degenerative spondylosis, as above. Reviewed, dictated and finalized at [facility] M. DOCUMENTS CLOSER Impression: Chronic severe compression fracture of T11. Multiple grade 1 retrolistheses in the upper lumbar spine, as detailed above. Moderate to advanced degenerative spondylosis, as above.
== END 2023-07-01 13:57 | disposition home or self-care (01) ==
PROVIDERS: PCP Family Medicine; Visit Provider Nurse Practitioner Family
DX: M96.1 Postlaminectomy syndrome, not elsewhere classified (principal); M43.16 Spondylolisthesis, lumbar region; S22.080A Wedge compression fracture of T11-T12 vertebra, initial encounter for closed fracture; X58.XXXA Exposure to other specified factors, initial encounter
CPT/HCPCS: 72148

== ENCOUNTER 2023-07-21 14:39 | Outpatient (RCR) | payer MEDICARE, OTHER, SELFPAY | END 2023-10-19 23:59 | disposition home or self-care (01) | LOC: ANHLAB 14:39 | PROVIDERS: PCP Family Medicine | DX: A31.0 Pulmonary mycobacterial infection (principal) | CPT/HCPCS: 87015; 87116; 87118; 87206 ==

== ENCOUNTER 2023-08-10 13:56 | Outpatient (NON) | payer MEDICARE, OTHER, SELFPAY | END 2023-08-10 13:57 | disposition home or self-care (01) | LOC: ANHLAB 13:57 | PROVIDERS: PCP Family Medicine; Visit Provider Nurse Practitioner Family | DX: J18.9 Pneumonia, unspecified organism (principal) | CPT/HCPCS: 87015; 87116; 87118; 87206 ==

== ENCOUNTER 2024-01-04 12:44 | Outpatient (CLI) | payer MEDICARE, OTHER, SELFPAY ==
--- NOTE | ~2024-01-04 | CT_ITS ---
CT diagnostic chest wo con Ordering provider: Jey Paniagua APRN History: 78 years Female with . A31.0 - Pulmonary mycobacterial infection . Comparison: None. Technique: CT chest without IV contrast. Radiation reduction technique utilized. DLP is 111.26 mGy-cm. FINDINGS: VISUALIZED THORACIC INLET: Normal. MEDIASTINUM: Aorta/coronary arteries: Mild atheromatous disease. Heart/other: The heart is not enlarged. Lymph nodes: No mediastinal or hilar adenopathy. LUNGS: Previously seen nodules bilaterally are unchanged. Atelectatic changes in the middle lobe are also again demonstrated. Atelectatic changes with nodularity in the right lower lobe is slightly incr eased measuring 1.8 x 0.9 compared to 1.2 x 0.6 cm. Underlying emphysematous changes., No pulmonary m asses. No infiltrates or effusions. No pneumothorax. VISUALIZED UPPER ABDOMEN: the visualized upper abdomen is normal. MUSCULOSKELETAL: Soft tissues: The superficial soft tissues are normal. Bones: Compression fracture of T12 unchanged from previous examination. Age appropriate degenerative changes of the spine. Left shoulder arthroplasty. Levoscoliosis. IMPRESSION: 1. Stable nodules are seen bilaterally. 2. Nodule seen in the right lower lobe posteriorly adjacent to the diaphragmatic area is slightly la rger than the previous study which may be atelectatic but nodule cannot be excluded. 3 months follow- up advised. 3. Emphysematous changes of the lungs. Reviewed, dictated and finalized at location A. IMPRESSION: 1. Stable nodules are seen bilaterally. 2. Nodule seen in the right lower lobe posteriorly adjacent to the diaphragmat ic area is slightly larger than the previous study which may be atelectatic but nodule cannot be excluded. 3 months follow-up advised. 3. Emphysematous changes of the lungs.
== END 2024-01-04 12:45 | disposition home or self-care (01) ==
PROVIDERS: PCP Family Medicine; Visit Provider Nurse Practitioner Family
DX: A31.0 Pulmonary mycobacterial infection (principal); R91.8 Other nonspecific abnormal finding of lung field
CPT/HCPCS: 71250

== ENCOUNTER 2024-02-27 13:42 | Outpatient (NON) | payer MEDICARE, OTHER, SELFPAY | END 2024-02-27 13:43 | disposition home or self-care (01) | PROVIDERS: PCP Family Medicine; Visit Provider Nurse Practitioner Family | DX: A31.0 Pulmonary mycobacterial infection (principal) | CPT/HCPCS: 87070; 87205 ==

== ENCOUNTER 2024-03-22 14:05 | Outpatient (NON) | payer MEDICARE, OTHER, SELFPAY | END 2024-03-22 14:06 | disposition home or self-care (01) | LOC: ANHLAB 14:06 | PROVIDERS: PCP Family Medicine; Visit Provider Nurse Practitioner Family | DX: A31.0 Pulmonary mycobacterial infection (principal) | CPT/HCPCS: 87015; 87070; 87116; 87205; 87206 ==

== ENCOUNTER 2024-04-19 14:06 | Outpatient (CLI) | payer MEDICARE, OTHER, SELFPAY ==
--- NOTE | ~2024-04-19 | CT_ITS ---
CT Scan of the Chest without Contrast: Clinical Indication: Abnormal finding of lung field Technique: Contiguous sections were acquired throughout the chest without intravenous contrast. Dose reduction technique was used on this scan by utilizing automated exposure control and iterative recon struction technique. The dose-length product (DLP) was 129.22 mGy-cm. COMPARISON: 01/04/2024 Findings: There is no evidence of any significant mediastinal, hilar or axillary lymphadenopathy. Ascending aor ta measures 4.5 cm in diameter. There are coronary artery calcifications. There is no evidence of pleural or pericardial effusion. There is severe emphysema. 8 mm right upper lobe pulmonary nodule present, stable from prior exam (ax ial image 26). Additional smaller right apical nodules are unchanged (axial images 11, 15, 16, 18). T here is chronic scarring or atelectasis in the right middle lobe. There is additional chronic scarrin g or atelectasis at the right lower lobe/right lung base. There is chronic scarring at the lingula. S table small nodules in the superior segment left lower lobe. Stable subcentimeter left apical pulmona ry nodules (axial images 16, 19, 23, 25, 30). Images through the upper abdomen reveal no abnormalities. Severe T12 compression fracture again noted . Impression: Multiple subcentimeter pulmonary nodules are stable from prior exam, as detailed above. Stable areas of scarring/atelectasis. Severe emphysema. Ascending aorta measures 4.5 cm in diameter. Reviewed, dictated and finalized at [facility]. IC HEALTH AIDES TEACHER Impression: Multiple subcentimeter pulmonary nodules are stable from prior exam, as detaile d above. Stable areas of scarring/atelectasis. Severe emphysema. Ascending aorta measures 4.5 cm in diameter.
== END 2024-04-19 14:07 | disposition home or self-care (01) ==
PROVIDERS: PCP Family Medicine; Visit Provider Nurse Practitioner Family
DX: R91.8 Other nonspecific abnormal finding of lung field (principal); J43.9 Emphysema, unspecified
CPT/HCPCS: 71250

== ENCOUNTER 2024-06-28 11:21 | Outpatient (NON) | payer MEDICARE, OTHER, SELFPAY ==
--- OUTSIDE RECORDS SUMMARY | 2024-07-05 03:05 | XMS_ITS | Encounter Summary ---
Author Organization [facility] Address [address] [place] [address] Phone Care Team Providers Care Junior Underwriter Name Role Phone Familia Rosario MD Primary Care Provider Encounter Details Date Type Department Care Team (Late st Contact Info) Description 04/19/2024 Orders Only [facility] Scanning, Provider Social History Tobacco Use Types Packs/Day Years Used Date Smoking Tobacco: Former Cigarettes Smokeless Tobacco: Never Personal Safety Answer Date Recorded Getting School Help Needed Not on file 05/24 Comments Unknown Sex and Gender Information Value Date Recorded Sex Assigned at Not on file Legal Sex Female 3:37 PM CDT Gender Identity Not on file Sexual Orientation Not on file documented as of this encounter Plan of Treatment Not on file documented as of this encounter Procedures Procedure Name Priority Date/Time Associated Diagnosis Comments SCAN - RADIOLOGY/IMAGING 04/19/2024 documented in this encounter Results * SCAN - RADIOLOGY/IMAGING (04/19/2024) Anatomical Region Laterality Modality Other us Provider Scanning Final Result documented in this encounter Visit Diagnoses Not on filedocumented in this encounter Care Teams Junior Underwriter Relationship Specialty Start Date End Date Familia Rosario MD [address] [place] [id number] PCP - General Family Medicine 02/14/18 documented as of this encounter
--- OUTSIDE RECORDS SUMMARY | 2024-07-05 03:05 | XMS_ITS | Continuity of Care Document ---
Author Organization [facility] Address [address] [place] [address] Phone Care Team Providers Care Cloth Feeder Name Role Phone Jeaneth Estrada MD Unavailable Unavailabl e Allergies, Adverse Reactions, Alerts Substance Reaction Status Criticality codeine Active No Information POTASSIUM CLAVULANATE Active No Inf ormation AMOXICILLIN TRIHYDRATE Active No In formation Medications Medication Instructions Dosage Effective Dates (start - stop) Status Comments hydrocodone 10 mg-acetaminophen 325 mg tablet - Active Tiadylt ER 120 mg capsule,extended release - Active lisinopril 20 mg-hydrochlorothiazide 25 mg tablet - Active CALCIUM CARBONATE/VITAMIN D3 (unknown strength) Not Available - Active Trelegy Ellipta 200 mcg-62.5 mcg-25 mcg powder for inhalation - Active dorzolamide 2 % eye drops - Active magnesium 250 mg tablet - Active ibuprofen 200 mg tablet - Active PROAIR HFA (unknown strength) Not Available - Active VITAMIN D3 (unknown strength) Not Available - Active SUPER B MAXI COMPLEX (unknown strength) Not Available - Active citalopram 10 mg tablet - Active Procedures Procedure Date X-RAY HIP UNI W PELVIS 2-3 VIEWS 2020 TREAT PELVIC RING FRACTURE OFFICE/OUTPATIENT VISIT NEW Advance Directives Directive Yes / No Effective Date File Name No Information Encounters Encounter Description Practice Location Reason(s) For Visit Diagnoses Date Provider Providers Copied on Encounter [facility], [address], [place], [address], [place] tel:[phone] [facility] No Information Tyler Eric. [address], [place], [id number] . tel: [phone] OFFICE/OUTPA TIENT VISIT NEW [facility], [address], [place], [address], [place] tel:[phone] [facility] Body mass index [BMI] 27.0-27.9, adultPain in right hipSacral insufficiency fracture, initial encounterClose d fracture of superior ramus of right pubis, initial encounterGlute al tendinitis, left hipClosed fracture of right inferior pubic ramus, initial encounterGlute al tendinitis of right buttock 1 Dawn Espino. [address], [place], [address]. tel: [phone] Referring Provider: Familia Ignacio, [address], [place], [address]. tel:[phone] Family History Family Member Type Diagnosis Age At Onset Sister Problem Hypertension Mother Problem Breast Father Problem Cardiovascular disease Mother Problem Cardiovascular disease Brother Problem Hypertension Payers Payer name Insurance type Covered republican ID Authoriza tion(s) Medicare E2 OT [id number] [facility] [place] [facility] [id number] Social History Type Description Quantity Date Captured Comments Alcohol Use Details Unknown Caffeine Use Details Unknown Tobacco Use Status No Information Smoking Status No Information Sex Female Chief Complaint And Reason For Visit No Information Reason For Referral Reason For Referral No Information Plan Of Treatment Date Type Action Status Referral Ordered: X-RAY HIP UNI W PELVIS 2-3 VIEWS RT hip ordered History Of Present Illness Encounter Date Complaint History Of Prese nt Illness No Information Functional Status Date Functional Assessmen t No Information Instructions Date Instruction Additional Infor mation Giving encouragement to exercise Related to Body mass index [BMI] 27.0-27.9, adult Assessments Type Assessment Date No Information Patient Care Teams Name Effective Dates (start - stop) Status Members No Information
--- OUTSIDE RECORDS SUMMARY | 2024-07-05 03:05 | XMS_ITS | Encounter Summary ---
Author Organization [facility] Address [address] [place] [address] Phone Care Team Providers Care Silica Dry Press Helper Name Role Phone Familia Rosario MD Primary Care Provider [phone] Encounter Details Date Type Department Care Team (Late st Contact Info) Description 06/27/2024 Telephone [facility] Infectious Diseases [address] [place] [address] [address] [place] [address] Honey Villanueva CMA Social History Tobacco Use Types Packs/Day Years [...] on file documented as of this encounter Miscellaneous Notes * Telephone Encounter - Honey Villanueva CMA - 06/28/2024 9:12 AM CST Error L INSPECTOR documented in this encounter Plan of Treatment Not on file documented as of this encounter Visit Diagnoses Not on filedocumented in this encounter Care Teams Silica Dry Press Helper Relationship Specialty Start Date End Date Familia Rosario MD [address] [place] [address] PCP - General Family Medicine 02/14/18 documented as of this encounter
--- OUTSIDE RECORDS SUMMARY | 2024-07-05 03:05 | XMS_ITS | Continuity of Care Document ---
Author Organization [facility] Address [address] [place] [address] Phone Care Team Providers Care Title Camera Operator Name Role Phone Janeen Rao Unavailable Unavailable Procedures Procedure Date Visual Field Examination(s) Office/outpatient Visit, Est Optic Nerve Head Eval Fundus Photography W/ Report Office/outpatient Visit, Est Optic Nerve Head Eval Visual Field Examination-Professional Au Visual Field Examination(s) Eye Exam Established Pt Optic Nerve Head Eval Post-op Follow-up Visit Post-op Follow-up Visit Post-op Follow-up Visit Remove Cataract, Insert Lens PreOp Assessment Performed Eye Exam & Treatment Echo Exam Of Eye-Professional 8 Office/outpatient Visit, Est Office/outpatient Visit, Est Office/outpatient Visit, Est Advance Directives Directive Yes / No Effective Date File Name No Information Encounters Encounter Description Practice Location Reason(s) For Visit Diagnoses Date Provider Providers Copied on Encounter [facility], [address], [place], [place], [id number], [place] tel:[phone] [facility] No Information 0 Maira Vernon. [address] , [address], [place], [place], [facility], [place]. tel:[phone] Referring Provider: Janeen Hermosillo, [address], [place], [place], [facility]. tel:[phone] Office/outpat ient Visit, [facility], [address] [place] [address] [address], [place], [place], [id number], [place] tel:[phone] [facility] No Information 5-201 0 Maira Vernon. [address] , [address], [place], [place], [facility], [place]. tel:[phone] Referring Provider: Janeen Hermosillo, [facility] [address], [place], [facility]. tel:[phone] Office/outpat ient Visit, [facility], [address] [place] [address] [address], [place], [place], [id number], [place] tel:[phone] [facility] No Information 9 Maira Vernon. [facility] , [address], [place], [facility], [place]. tel:[phone] [facility], [address] [place] [address] [address], [place], [place], [id number], [place] tel:[phone] [facility] No Information 9 Maira Vernon. [address] [facility] , [address], [place], [facility], [place]. tel:[phone] Referring Provider: [address] [facility] [address], [place], [facility]. tel:[phone] [facility], [address] [place] [address] [address], [place], [place], [id number], [place] tel:[phone] [facility] No Information 9 Rao Janeen. [address] , [address], [place], [facility], [place]. tel:[phone] Referring Provider: Janeen Hermosillo, [address], [place], [facility]. tel:[phone] [facility], [address], [place], [place], [id number], [place] tel:[phone] [facility] No Information 9 Maira Lamn. [address] , [address], [place], [facility], [place]. tel:[phone] [facility], [address] [place] [address] [address], [place], [place], [address], [place] tel:[phone] [facility] No Information 9 Maira Wang [address] , [address], [place], [facility], [place]. tel:[phone] [facility], [address] [place] [address] [address], [place], [place], [address], [place] tel:[phone] [facility] No Information 9 Maira Wang [address] , [address], [place], [facility], [place]. tel:[phone] [facility], [address] [place] [address] [address], [place], [place], [address], [place] tel:[phone] [facility] No Information 9 Maira Wang [address] , [address], [place], [facility], [place]. tel:[phone] [facility], [address], [place], [place], [address], [place] tel:[phone] [facility] No Information 9 Maira Wang [address] , [address], [place], [facility], . tel:[phone] [facility], [address] [place] [address] [address], [place], [place], [address], tel:[phone] [facility] No Information 3-200 8 Maira Wang [address] [facility] , [address], [place], [facility], . tel:[phone] Referring Provider: Penny [facility] [address], [place], [facility]. tel:[phone] Office/outpat ient Visit, [facility], [address] [place] [address] [address], [place], [place], [id number], tel:[phone] [facility] No Information 8-200 8 Maira Wang [address] [place] [address] , [address], [place], [facility], . tel:[phone] Office/outpat ient Visit, [facility], [address] [place] [address] [address], [place], [place], [id number], tel:[phone] [facility] No Information 5-200 7 Maira Wang [facility] , [address], [place], [facility], . tel:[phone] Office/outpat ient Visit, [facility], [address] [place] [address] [address], [place], [place], [id number], tel:[phone] [facility] No Information 7-200 7 Maira Wang [address] [facility] , [address], [place], [facility], . tel:[phone] Family History Family Member Type Diagnosis Age At Onset No Information Payers Payer name Insurance type Covered green party ID Authoriza tikamilla(s) [place] [id number] Social History Type Description Quantity Date Captured Comments Sex Female Smoking Status No Information Chief Complaint And Reason For Visit No Information Reason For Referral Reason For Referral No Information History Of Present Illness Encounter Date Complaint History Of Prese nt Illness No Information Functional Status Date Functional Assessmen t No Information Instructions Date Instruction Additional Infor mation No Information Assessments Type Assessment Date No Information Patient Care Teams Name Effective Dates (start - stop) Status Members No Information
--- OUTSIDE RECORDS SUMMARY | 2024-07-05 03:05 | XMS_ITS | Referral Summary ---
Author Organization [facility] [address] Address [address] [place] [address] Care Team Providers Care Music Orchestrator Name Role Phone Familia Rosario MD Primary Care Provider [phone] Encounters Date Type Department Care Team Description 06/28/2024 Orders Only [facility] Infectious Diseases [address] [place] [address] [place] [address] Racheal Dhaliwal, VESTA Pulmonary mycobacterial infection (CMS/HCC) (HCC) (Primary Dx) 06/27/2024 Telephone [facility] Infectious Diseases [address] [place] [phone] Honey Villanueva, CUTTING MACHINE FIXER 06/27/2024 Telephone [facility] Infectious Diseases [address] [place] [address] Honey Villanueva, CUTTING MACHINE FIXER 04/19/2024 Orders Only [facility] INF[facility]OUS [facility] Scanning, Provider 04/05/2024 Telephone [facility] Infectious Diseases [address] [place] [address] Em Torres from Last 3 Months Allergies Active Allergy Reactions Criticality Noted Date Comments Amoxicillin-Pot Clavulanate Nausea & Vomiting Low 0 01/25/2023 Codeine Nausea & Vomiting Low 02/27/2018 Dorzolamide-Timolol Shortness of breath High 018 Medications albuterol HFA (PROVENTIL HFA,VENTOLIN HFA,PROAIR HFA) 90 mcg/actuation inhaler Inhale 2 puffs every 6 (six) hours as needed 11/21/2022 Active citalopram (CeleXA) 10 mg tablet Take 1 tablet (10 mg total) by mouth daily 12/20/2022 Active dorzolamide (TRUSOPT) 2 % ophthalmic solution INSTILL 1 DROP INTO BOTH EYES THREE TIMES DAILY 11/21/2022 Active Tiadylt ER 120 mg 24 hr capsule Take by mouth daily 01/18/2023 Active Trelegy Ellipta 200-62.5-25 mcg inhaler 1 puff daily 01/14/2023 Active lisinopril-hydr oCHLOROthiazide (ZESTORETIC) 20-25 mg per tablet Take 1 tablet by mouth daily 11/30/2022 Active gabapentin (NEURONTIN) 100 mg capsule TAKE 1 CAP BY MOUTH EVERY DAY FOR 5 DAYS, 1 CAP 2 TIMES DAILY X 5 DAYS, THEN 1 CAP 3 TIMES DAILY 04/26/2023 Active azithromycin (ZITHROMAX) 500 mg tablet Take 1 tablet (500 mg total) by mouth 3 (three) times a week 12 tablet 11 08/17/2023 Active ethambutoL (MYAMBUTOL) 400 mg tabletIndicatio ns:Mycobacterio sis Take 3 tablets (1,200 mg total) by mouth 3 (three) times a week 36 tablet 11 08/17/2023 Active rifAMPin (RIFADIN) 300 mg capsule Take 2 capsules (600 mg total) by mouth 3 (three) times a week 24 capsule 11 08/17/2023 Active Active Problems Problem Noted Date Diagnosed Date Encounter for long-term (current) use of antibio tics 02/08/2023 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 - Advised patient to start the medications in that order, start azithromycin, add ethambutol a week later, add rifampin a week following ethambutol. - We discussed the rationale for treatment, culture results, treatment plan, length of therapy, risk of recurrent infection, as well as signs/symptoms of recurrent infection and to contact ID with any concerns. Assessment & Plan (11/05/2022 3:52 PM CDT): - 09/06/22 Sputum Culture + mycobacterium avium - 06/23/22: CT without contrast: scanned into [facility]. Bilateral areas of nodular consolidation, worse in the right lower lobe, with areas of tree-in-bud nodularity, suspicious for an atypical mycobacterial infection. Multiple discrete pulmonary nodules are seen throughout both lungs, the largest in the right upper lobe measuring up to 9 mm in size. - Unfortunately, we need susceptibilities prior to treatment, we have ordered induced sputums to be done and have also contacted the ordering MD of the initial sputum culture to see if susceptibilities can be added. - Will check a CBC and CMP today - Clinically the patient is stable - We plan to start treatment as soon as we have available data. - We discussed the rationale for treatment, culture results, treatment plan, length of therapy, risk of recurrent infection, as well as signs/symptoms of recurrent infection and to contact ID with any concerns. Immunizations Name Administration Dates Next Due Influenza, Trivalent, Adjuva nted, Intramuscular 03/29/2018 Influenza, Trivalent, High D ose, Split, Preservative Free, Intramuscular 03/31/2021,02/28/2020,03/31/2018,04/28,07/10/2015,03/11/2014 Influenza, Trivalent, IM (MDV) 04/16/2013,2011 Pneumococcal Conjugate PCV 13 07/29/2016 Pneumococcal Conjugate Pcv20 11/22/2023 Tdap 03/01/2019 Social History Tobacco Use Types Packs/Day Years Used Date Smoking Tobacco: Former Cigarettes Smokeless Tobacco: Never Tobacco Cessation:Counseling Given: Not Answered Personal Safety Answer Date Recorded Getting School Help Needed Not on file 05/24 Comments Unknown Sex and Gender Information Value Date Recorded Sex Assigned at Not on file Legal Sex Female 3:37 PM CDT Gender Identity Not on file Sexual Orientation Not on file Last Filed Vital Signs Vital Sign Reading Time Taken Comments Blood Pressure 129/75 11/22/2023 11:26 AM CDT Pulse 68 11/22/2023 11:26 AM CDT Temperature 36.5 ??C (97.7 ??F) 11/22/2023 11:26 AM C DT Respiratory Rate - - Oxygen Saturation - - Inhaled Oxygen Concentration - - Weight 74.8 kg (165 lb) 11/22/2023 11:26 AM CDT Height 157 cm (5' 1.81 ) 11/22/2023 11:26 AM CDT Body Mass Index 30.36 11/22/2023 11:26 AM CDT Plan of Treatment Not on file Procedures Procedure Name Priority Date/Time Associated Diagnosis Comments SCAN - RADIOLOGY/IMAGING 04/19/2024 from Last 3 Months Results * SCAN - RADIOLOGY/IMAGING (04/19/2024) Anatomical Region Laterality Modality Other Provider Scanning Final Result from Last 3 Months Insurance [place] [address] [facility] MEDICARE MEDIC[facility] Care Teams Music Orchestrator Relationship Specialty Start Date End Date Familia Rosario MD [address] [place] [address] PCP - General Family Medicine 02/14/18
--- OUTSIDE RECORDS SUMMARY | 2024-07-05 03:05 | XMS_ITS | Encounter Summary ---
Author Organization [facility] Address [address] [place] [address] Phone Care Team Providers Care Tip Length Checker Name Role Phone Familia Rosario MD Primary Care Provider [phone] Encounter Details Date Type Department Care Team (Late st Contact Info) Description 06/27/2024 Telephone [facility] Infectious Diseases [address] [place] [address] [address] [place] [address] Honey Villanueva CMA Social History [...] encounter Miscellaneous Notes * Telephone Encounter - Krupa Hastings - 06/28/2024 8:32 AM CST Order placed and faxed to [place]. Return call, lvm OR PACKAGING ENGINEER * Telephone Encounter - Honey Villanueva CMA - 06/27/2024 4:06 PM CST This patient says that our office should have sent their Sputum test to [facility] in [place], [place]. The test was sent to [place], [place]. The patient took the test to [place], [place]. Please call the patient at [phone]. The test must be reordered. OR PACKAGING ENGINEER documented in this encounter Plan of Treatment Not on file documented as of this encounter Visit Diagnoses Not on filedocumented in this encounter Care Teams Tip Length Checker Relationship Specialty Start Date End Date Familia Rosario MD [address] [place] [address] PCP - General Family Medicine 02/14/18 documented as of this encounter
--- OUTSIDE RECORDS SUMMARY | 2024-07-05 03:05 | XMS_ITS | Clinical Summary ---
Author Organization [facility] [address] Address [address] [place] [address] Care Team Providers Care Drill Runner Name Role Phone Familia Rosario MD Primary Care Provider Allergies Active Allergy Reactions Criticality Noted Date [...] 3 (three) times a week 36 tablet 08/17/2023 Active rifAMPin (RIFADIN) 300 mg capsule Take 2 capsules (600 mg total) by mouth 3 (three) times a week 24 capsule 08/17/2023 Active Active Problems Problem Noted Date [...] and to contact ID with any concerns. Encounters Date Type Department Care Team Description 06/28/2024 Orders Only [facility] Infectious Diseases [address] [place] [address] Racheal Dhaliwal, VESTA Pulmonary mycobacterial infection (CMS/HCC) (HCC) (Primary Dx) 06/27/2024 Telephone [facility] Infectious Diseases [address] [place] [address] Honey Villanueva, [facility] 06/27/2024 Telephone [facility] Infectious Diseases [address] [place] [address] Honey Villanueva, RADIOLOGY RN 04/19/2024 Orders Only [facility] Scanning, Provider 04/05/2024 Telephone [facility] Infectious Diseases [address] [place] [address] Em Torres from Last 3 Months Immunizations Name Administration Dates Next Due Influenza, [...] on file Sexual Orientation Not on file Obstetrics History Last Filed Vital Signs Vital Sign Reading [...] 11/22/2023 11:26 AM CDT Plan of Treatment Health Maintenance Due Date Last Done Comments Depression Screening 1945 Fall Risk Assessment 1945 Osteoporosis Screening-Bone Density Scan 1945 Hepatitis B Screening 1961 Zoster Vaccine (1 of 2) 1993 Well Visit 65+ 01/28/2008 Covid-19 Vaccine (5 - 2023-2 5 season) 2024 05/31/2023, 05/20/2021, 08/29/2020, Additional history exists Influenza Vaccine (#1) 2024 , 03/31/2021, 02/28/2020, Additional history exists DTaP/Tdap/Td Vaccine (2 - Td or Tdap) 03/01/2029 03/01/2019 Pneumococcal vaccine 65+ Completed 11/22/2023, 07/14 Procedures Procedure Name Priority Date/Time Associated Diagnosis Comments SCAN - RADIOLOGY/IMAGING 04/19/2024 from Last 3 Months Results * SCAN - RADIOLOGY/IMAGING (04/19/2024) Anatomical Region Laterality Modality Other us Provider Scanning Final Result from Last [address] [facility] [place] [address] Care Teams Drill Runner Relationship Specialty Start Date End Date Familia Rosario MD [address] [place] [address] PCP - General Family Medicine 02/14/18
--- OUTSIDE RECORDS SUMMARY | 2024-07-05 03:05 | XMS_ITS | Encounter Summary ---
Author Organization [facility] Address [address] [place] [address] Phone Care Team Providers Care Technical Associate Name Role Phone Familia Rosario MD Primary Care Provider [phone] Encounter Details Date Type Department Care Team (Late st Contact Info) Description 08/10/2023 Orders Only [facility] Scanning, [...] Priority Date/Time Associated Diagnosis Comments SCAN - LABS 08/10/2023 documented in this encounter Results * SCAN - LABS (08/10/2023) us Provider Scanning Edited Result - Final documented in this encounter Visit Diagnoses Not on filedocumented in this encounter Care Teams Technical Associate Relationship Specialty Start Date End Date Familia Rosario MD [address] [place] [address] PCP - General Family Medicine 02/14/18 documented as of this encounter
--- OUTSIDE RECORDS SUMMARY | 2024-07-05 03:05 | XMS_ITS | CONTINUITY OF CARE DOCUMENT ---
Author Name sergio hill Address Unknown Organization [facility] Address [address] [place] [address] Phone [phone] Care Team Providers Care Hardware Manager Name Role Phone Reed Esquivel MD Unavailable [phone] Delisa Gaines Unavailable [phone] Delisa Gaines Unavailable INSURANCE PROVIDERS Payer name Policy type / Coverage type [place] red libertarian ID [place] Medicare [id number] MIRYAM WITT [id number]
--- OUTSIDE RECORDS SUMMARY | 2024-07-05 03:05 | XMS_ITS | Encounter Summary ---
Author Organization [facility] Address [address] [place] [address] Phone Care Team Providers Care Data Processing Systems Project Planner Name Role Phone Familia Rosario MD Primary Care Provider [phone] Encounter Details Date Type Department Care Team (Late st Contact Info) Description 06/28/2024 Orders Only [facility] Infectious Diseases [address] [place] [address] [address] [place] [id number] Racheal Dhaliwal, VESTA [address] [facility] [address] [place] [address] Pulmonary mycobacterial infection (CMS/HCC) (HCC) (Primary Dx) Social History Tobacco Use Types Packs/Day Years [...] as of this encounter Plan of Treatment Scheduled Orders Name Type Priority Associated Diagnoses Orde r Schedule Mycobacteriology (AFB) culture and acid-fast stain Sputum Sputum Microbiology Routine Pulmonary mycobacterial infection (CMS/HCC) (HCC) Expected: 07/05/2024 (Approximate), Expires: 06/28/2025 documented as of this encounter Visit Diagnoses Diagnosis Pulmonary mycobacterial infection (CMS/HCC) (HCC)- Primary documented in this encounter Care Teams Data Processing Systems Project Planner Relationship Specialty Start Date End Date Familia Rosario MD [address] [place] [address] PCP - General Family Medicine 02/14/18 documented as of this encounter
--- OUTSIDE RECORDS SUMMARY | 2024-07-05 03:17 | XMS_ITS | Continuity of Care Document ---
Author Organization [facility] Address [address] [place] [address] Phone Care Team Providers Care Commercial Illustrator Name Role Phone Janeen Rao Unavailable Unavailable [...] Diagnoses Date Provider Providers Copied on Encounter [facility], [address], [place], [place], [address], [place] tel:[phone] [facility] No Information 0 Maira Vernon. [address] , [address], [place], [place], [facility], [place]. tel:[phone] Referring Provider: Janeen Hermosillo, [address], [place], [place], [facility]. tel:[phone] Office/outpat ient Visit, [facility] Eye [facility], [address] [place] [address] [address], [place], [place], [address], [place] tel:[phone] [facility] No Information 5-201 0 Maira Vernon. [address] , [address], [place], [facility], [place]. tel:[phone] Referring Provider: Janeen Hermosillo, [facility] [address], [place], [facility]. tel:[phone] Office/outpat ient Visit, [facility], [address] [place] [address] [address], [place], [place], [address], [place] tel:[phone] [facility] No Information 9 Maira Vernon. [facility] , [address], [place], [facility], [place]. tel:[phone] [facility], [address] [place] [address] [address], [place], [place], [address], [place] tel:[phone] [facility] No Information 9 Maira Vernon. [address] , [address], [place], [facility], [place]. tel:[phone] Referring Provider: [address] [facility] [address], [place], [facility]. tel:[phone] [facility], [address] [place] [address] [address], [place], [place], [address], [place] tel:[phone] [facility] No Information 9 Rao Janeen. [address] , [address], [place], [facility], [place]. tel:[phone] Referring Provider: Janeen Hermosillo, [address], [place], [facility]. tel:[phone] [facility], [address], [place], [place], [address], [place] tel:[phone] [facility] No Information 9 Maira Lamn. [address] , [address], [place], [facility], [place]. tel:[phone] [facility], [address] [place] [address] [address], [place], [place], [address], [place] tel:[phone] [facility] No Information 9 Maira Wang [address] , [address], [place], [facility], [place]. tel:[phone] [facility], [address] [place] [address] [address], [place], [place], [address], [place] tel:[phone] [facility] No Information 9 Maira Wang [address] , [address], [place], [facility], [place]. tel:[phone] [facility], [address] [place] [address] [address], [place], [place], [address], [place] tel:[phone] [facility] No Information 9 Maira Wang [address] , [address], [place], [facility], [place]. tel:[phone] [facility], [address], [place], [place], [address], [place] tel:[phone] [facility] No Information 9 Maira Wang [address] , [address], [place], [facility], . tel:[phone] [facility], [address] [place] [address] [address], [place], [place], [address], tel:[phone] [facility] [place] No Information 3-200 8 Maira Wang [address] [facility] , [address], [place], [facility], . tel:[phone] Referring Provider: Penny Ward [facility] [address], [place], [facility]. tel:[phone] Office/outpat ient Visit, [facility], [address] [place] [address] [address], [place], [place], [address], tel:[phone] [facility] No Information 8-200 8 Maira Wang [address] [place] [address] , [address], [place], [facility], . tel:[phone] Office/outpat ient Visit, [facility], [address] [place] [address] [address], [place], [place], [address], tel:[phone] [facility] [place] No Information 5-200 7 Maira Wang [facility] , [address], [place], [facility], . tel:[phone] Office/outpat ient Visit, [facility], [address] [place] [address] [address], [place], [place], [address], tel:[phone] [facility] No Information 7-200 7 Maira Wang [address] [facility] , [address], [place], [facility], . tel:[phone] Family History Family Member Type Diagnosis Age At Onset No Information Payers Payer name Insurance type Covered constitution party ID Authoriza tikamilla(s) [place] [id number] Social History Type Description Quantity Date Captured [...]
--- OUTSIDE RECORDS SUMMARY | 2024-07-05 03:17 | XMS_ITS | Continuity of Care Document ---
Author Organization [facility] Address [address] [place] [address] Phone Care Team Providers Care Ball Winder Name Role Phone Jeaneth Estrada MD Unavailable [...] Providers Copied on Encounter [facility], [address], [place], [address], [place] tel:[phone] [facility] No Information Tyler Eric. [address], [place], [address] . tel: [phone] OFFICE/OUTPA TIENT VISIT NEW [facility], [address], [place], [address], [place] tel:[phone] [facility] Body mass index [BMI] 27.0-27.9, adultPain in right hipSacral insufficiency fracture, initial encounterClose d fracture of superior ramus of right pubis, initial encounterGlute al tendinitis, left hipClosed fracture of right inferior pubic ramus, initial encounterGlute al tendinitis of right buttock 1 Dawn Espino. [address], [place], [address]. tel: [phone] Referring Provider: Familia Ignacio, [address], [place], [address]. tel:[phone] Family History Family Member Type Diagnosis Age At Onset Sister Problem Hypertension Mother Problem Breast Father Problem Cardiovascular disease Mother Problem Cardiovascular disease Brother Problem Hypertension Payers Payer name Insurance type Covered constitution party ID Authoriza tion(s) Medicare E2 [id number] [facility] [id number] Social History Type Description Quantity Date [...]
== END 2024-06-28 11:22 | disposition home or self-care (01) ==
LOC: ANHLAB 12:09
PROVIDERS: PCP Family Medicine
DX: A31.0 Pulmonary mycobacterial infection (principal)
CPT/HCPCS: 87015; 87116; 87206

== ENCOUNTER 2024-11-01 11:20 | Outpatient (CLI) | payer MEDICARE, OTHER, SELFPAY ==
--- NOTE | ~2024-11-01 | CT_ITS ---
CT Scan of the Chest without Contrast: Clinical Indication: Mycobacterial infection Technique: Contiguous sections were acquired throughout the chest without intravenous contrast. Dose reduction technique was used on this scan by utilizing automated exposure control and iterative recon struction technique. The dose-length product (DLP) was 164.13 mGy-cm. COMPARISON: 04/19/2024 Findings: There is no evidence of any significant mediastinal, hilar or axillary lymphadenopathy. There are ath erosclerotic calcifications of the aorta and coronary arteries. Ascending aorta measures 4.5 cm in di ameter. There is no evidence of pleural or pericardial effusion. There is advanced emphysema. Several right upper lobe pulmonary nodules are unchanged (axial images 1 5, 19, 22, 32). Chronic atelectasis or scarring in the right middle lobe is unchanged. Stable small n odules in the superior segment left lower lobe. Images through the upper abdomen reveal no abnormalities. Stable severe T12 compression fracture. Impression: Stable pulmonary nodules, as detailed above. Stable chronic scarring or atelectasis right middle lobe. Advanced emphysema. Stable T12 compression fracture. Ascending aorta measures 4.5 cm in diameter. Reviewed, dictated and finalized at [facility]. Impression: Stable pulmonary nodules, as detailed above. Stable chronic scarring or atelectasis right middle lobe. Advanced emphysema. Stable T12 compression fracture. Ascending aorta measures 4.5 cm in diameter.
--- OUTSIDE RECORDS SUMMARY | 2024-11-01 11:23 | XMS_ITS | Encounter Summary ---
Author Organization [facility] Address [address] [place] [address] Phone Care Team Providers Care Orthodontic Assistant Name Role Phone Familia Rosario MD Primary Care Provider [phone] Encounter Details Date Type Department Care Team (Late st Contact Info) Description 04/19/2024 Orders Only [facility] Scanning, Provider Social History Tobacco Use Types Packs/Day Years Used Date Smoking Tobacco: Former Cigarettes Smokeless Tobacco: Never Comments Unknown Sex and Gender Information Value [...] on filedocumented in this encounter Care Teams Orthodontic Assistant Relationship Specialty Start Date End Date Familia Rosario MD [address] [place] [address] PCP - General Family Medicine 02/14/18 documented as of this encounter
--- OUTSIDE RECORDS SUMMARY | 2024-11-01 11:23 | XMS_ITS | CONTINUITY OF CARE DOCUMENT ---
Author Name sergio hill Address Unknown Organization [facility] Address [address] [place] [address] Phone [phone] Care Team Providers Care Print Finisher Name Role Phone Reed Esquivel MD Unavailable [phone] Delisa Gaines Unavailable Delisa Gaines Unavailable [phone] INSURANCE PROVIDERS Payer name Policy type / Coverage type [place] [employer] party ID [place] [id number] MIRYAM WITT [id number]
--- OUTSIDE RECORDS SUMMARY | 2024-11-01 11:23 | XMS_ITS | Referral Summary ---
Author Organization [facility] [address] Address [address] [place] [address] Care Team Providers Care Sewage Plant Supervisor Name Role Phone Familia Rosario MD Primary Care Provider [phone] Encounters Date Type Department Care Team Description 10/08/2024 Telephone [facility] Infectious Diseases [address] [place] [phone] Dulce Lazo RMA 08/16/2024 8:32 AM TOLL TEST DESK WORKER - 08/16/2024 11:59 PM TOLL TEST DESK WORKER Hospital Encounter [facility] [address] [place] [phone] Diagnosis unknown Discharge Disposition: Discharge to home or self care 08/14/2024 11:40 AM TOLL TEST DESK WORKER - 08/14/2024 11:59 PM TOLL TEST DESK WORKER Hospital Encounter [address] [address] Discharge Disposition: Discharge to home or self care 08/14/2024 10:00 AM TOLL TEST DESK WORKER Office Visit [facility] Infectious Diseases [address] [place] [phone] Racheal Dhaliwal NP Dry mouth (Primary Dx); Dry eye; Encounter for long-term (current) use of antibiotics from Last 3 Months Allergies Active Allergy [...] 1 CAP 3 TIMES DAILY 04/26/2023 Active rifAMPin (RIFADIN) 300 mg capsule TAKE 2 CAPSULES (600 MG TOTAL) BY MOUTH 3 (THREE) TIMES A WEEK 24 capsule 11 07/30/2024 Active ethambutoL (MYAMBUTOL) 400 mg tabletIndicatio ns:Mycobacterio sis TAKE 3 TABLETS (1,200 MG TOTAL) BY MOUTH 3 (THREE) TIMES A WEEK 36 tablet 8 07/30/2024 Active fluoride, sodium, 1.1 % paste as directed 05/24/2024 Active traMADoL (ULTRAM) 50 mg tablet Take by mouth every 6 (six) hours as needed 07/12/2024 Active azithromycin (ZITHROMAX) 500 mg tablet TAKE 1 TABLET (500 MG TOTAL) BY MOUTH 3 (THREE) TIMES A WEEK 12 tablet 11 08/20/2024 Active Active Problems Problem Noted Date Diagnosed Date Dry eye 08/28/2024 Dry mouth 08/28/2024 Encounter for long-term (current) use of antibio tics 02/08/2023 Pulmonary mycobacterial infection 11/05/2022 Assessment & Plan (02/08/2023 9:00 AM CDT): [...] to contact ID with any concerns. Immunizations Immunization Administration Dates Next Due Influenza, Trivalent, Adjuva nted, Intramuscular 03/29/2018 Influenza, Trivalent, High D ose, Split, Preservative Free, Intramuscular 03/31/2021,02/28/2020,03/31/2018,04/28,07/10/2015,03/11/2014 Influenza, Trivalent, IM (MDV) 04/16/2013,2011 Pneumococcal Conjugate PCV 13 07/29/2016 Pneumococcal Conjugate Pcv20 11/22/2023 Tdap 03/01/2019 Social History Tobacco Use Types Packs/Day Years Used Date Smoking Tobacco: Former Cigarettes Smokeless Tobacco: Never Tobacco Cessation:Counseling Given: Not Answered Comments Unknown Sex and Gender Information Value Date Recorded Sex Assigned at Not on file Legal Sex Female 3:37 PM CDT Gender Identity Not on file Sexual Orientation Not on file Last Filed Vital Signs Vital Sign Reading Time Taken Comments Blood Pressure 149/72 08/14/2024 10:14 AM TOLL TEST DESK WORKER Pulse 73 08/14/2024 10:14 AM TOLL TEST DESK WORKER Temperature 36.2 C (97.2 F) 08/14/2024 10:14 AM TOLL TEST DESK WORKER Respiratory Rate - - Oxygen Saturation 95% 08/14/2024 10:14 AM TOLL TEST DESK WORKER Inhaled Oxygen Concentration - - Weight 72.6 kg (160 lb) 08/14/2024 10:14 AM TOLL TEST DESK WORKER Height 157 cm (5' 1.81 ) 08/14/2024 10:14 AM TOLL TEST DESK WORKER Body Mass Index 29.44 08/14/2024 10:14 AM TOLL TEST DESK WORKER Plan of Treatment Not on file Procedures Procedure Name Priority Date/Time Associated Diagnosis Comments CT BODY OUTSIDE CONSULT Routine 08/16/2024 8:32 AM TOLL TEST DESK WORKER Diagnosis unknown EGFR Routine 08/14/2024 11:40 AM TOLL TEST DESK WORKER Dry mouth Dry eye DIFFERENTIAL AUTO Routine 08/14/2024 11: 40 AM TOLL TEST DESK WORKER Dry mouth Dry eye GLUCOSE, RANDOM (OUTREACH) Routine 08/14/2024 11:40 AM TOLL TEST DESK WORKER Dry mouth Dry eye COMPREHENSIVE METABOLIC PANEL WITHOUT GLUCOSE (OUTREACH) Routine 08/14/2024 11:40 AM TOLL TEST DESK WORKER Dry mouth Dry eye COMPREHENSIVE METABOLIC PANEL (OUTREACH) Routine 08/14/2024 11:40 AM TOLL TEST DESK WORKER Dry mouth Dry eye CBC WITH AUTO DIFFERENTIAL Routine 08/14/2024 11:40 AM TOLL TEST DESK WORKER Dry mouth Dry eye RHEUMATOID FACTOR Routine 08/14/2024 11: 40 AM TOLL TEST DESK WORKER Dry mouth Dry eye SAVANA QUALITATIVE WITH REFLEX TO SAVANA QUANTITATIVE Routine 08/14/2024 11:40 AM TOLL TEST DESK WORKER Dry mouth Dry eye SJOGRENS SYNDROME-A ANTIBODY Routine 08/14/2024 11:40 AM TOLL TEST DESK WORKER Dry mouth Dry eye SJOGRENS SYNDROME-B ANTIBODY Routine 08/14/2024 11:40 AM TOLL TEST DESK WORKER Dry mouth Dry eye from Last 3 Months Results * CT Body Outside Consult (08/16/2024 8:32 AM TOLL TEST DESK WORKER) Anatomical Region Laterality Modality Body N/A Computed Tomogra phy 08/16/2024 9:38 AM TOLL TEST DESK WORKER Impressions 08/16/2024 9:38 AM TOLL TEST DESK WORKER 1. Previously noted new 8 mm right upper lobe posterior pulmonary nodule has since resolved. Additional pulmonary nodules are unchanged or slightly smaller. Continued follow-up advised. The findings, conclusions and recommendations within this report do not replace the initial findings, conclusions and recommendations made at the facility where the study was performed based upon the imaging and clinical condition at that time. Comparison with the prior report and clinical history is necessary. The provided images may or may not represent the [place] source data set and thus may contain changes that may lower the accuracy of this second-opinion interpretation. Electronically signed by: Britta Munoz M.D. Narrative 08/16/2024 9:38 AM TOLL TEST DESK WORKER EXAMINATION: RADIOLOGY CONSULTATION ON OUTSIDE IMAGING STUDY STUDY INITIALLY PERFORMED: 04/19/2024 at [facility]. TYPE OF STUDY: Multiple CT images of the chest without contrast are provided at the time of this interpretation. CONTRAST ROUTE: No contrast was administered. The protocol was adequate to address the clinical question. The outside final report was not available at the time of this second opinion interpretation. TYPE OF CONSULTATION: Consult on outside imaging study with images submitted through Outside Image Sharing Service DATE OF CONSULTATION: 08/16/2024 9:28 AM HISTORY: Pulmonary mycobacterial infection COMPARISON: Multiple priors most recent 06/29/2023 FINDINGS: Previously noted 8 mm pleural right upper lobe posterior pulmonary nodule That was new on the prior study is no longer seen. Unchanged right upper lobe 1 cm nodule on series 4 image 26. Multiple unchanged nodules in the left lung, such as a 8 mm superior segment left lower lobe nodule on series 4 image 35. At least one nodule slightly smaller within the left upper lobe on series 4 image 41 measuring 5 mm, previously 7 mm. Unchanged right middle lobe chronic atelectasis/scarring and right basilar lower lobe scarring. Unchanged mild bronchiectasis in the right middle and right lower lobes. There is a background of upper lung predominant centrilobular emphysema. There are no new suspicious pulmonary nodules seen. There is no pneumothorax or pleural effusion. Multivessel coronary artery calcification. Mildly enlarged heart. No pericardial effusion. No suspicious thoracic lymphadenopathy. Enlargement of the main/central pulmonary artery again noted measuring up to 3.7 cm, suggestive of underlying pulmonary hypertension. Visualization of the upper abdomen is markedly limited due to noise artifact and streak artifact. No new suspicious osseous lesion. S-shaped curvature of the spine with unchanged T11 compression deformity. Unchanged lobulated paravertebral lesions adjacent to the T10 and T9 vertebrae (series 3 image 70 through 90) which may reflect neurogenic tumors such as schwannomas or neurofibromas. Procedure Note Britta Munoz MD - 08/16/2024 EXAMINATION: RADIOLOGY CONSULTATION ON OUTSIDE IMAGING STUDY STUDY INITIALLY PERFORMED: 04/19/2024 at [facility]. TYPE OF STUDY: Multiple CT images of the chest without contrast are provided at the time of this interpretation. CONTRAST ROUTE: No contrast was administered. The protocol was adequate to address the clinical question. The outside final report was not available at the time of this second opinion interpretation. TYPE OF CONSULTATION: Consult on outside imaging study with images submitted through Outside Image Sharing Service DATE OF CONSULTATION: 08/16/2024 9:28 AM HISTORY: Pulmonary mycobacterial infection COMPARISON: Multiple priors most recent 06/29/2023 FINDINGS: Previously noted 8 mm pleural right upper lobe posterior pulmonary nodule That was new on the prior study is no longer seen. Unchanged right upper lobe 1 cm nodule on series 4 image 26. Multiple unchanged nodules in the left lung, such as a 8 mm superior segment left lower lobe nodule on series 4 image 35. At least one nodule slightly smaller within the left upper lobe on series 4 image 41 measuring 5 mm, previously 7 mm. Unchanged right middle lobe chronic atelectasis/scarring and right basilar lower lobe scarring. Unchanged mild bronchiectasis in the right middle and right lower lobes. There is a background of upper lung predominant centrilobular emphysema. There are no new suspicious pulmonary nodules seen. There is no pneumothorax or pleural effusion. Multivessel coronary artery calcification. Mildly enlarged heart. No pericardial effusion. No suspicious thoracic lymphadenopathy. Enlargement of the main/central pulmonary artery again noted measuring up to 3.7 cm, suggestive of underlying pulmonary hypertension. Visualization of the upper abdomen is markedly limited due to noise artifact and streak artifact. No new suspicious osseous lesion. S-shaped curvature of the spine with unchanged T11 compression deformity. Unchanged lobulated paravertebral lesions adjacent to the T10 and T9 vertebrae (series 3 image 70 through 90) which may reflect neurogenic tumors such as schwannomas or neurofibromas. IMPRESSION: 1. Previously noted new 8 mm right upper lobe posterior pulmonary nodule has since resolved. Additional pulmonary nodules are unchanged or slightly smaller. Continued follow-up advised. The findings, conclusions and recommendations within this report do not replace the initial findings, conclusions and recommendations made at the facility where the study was performed based upon the imaging and clinical condition at that time. Comparison with the prior report and clinical history is necessary. The provided images may or may not represent the [place] source data set and thus may contain changes that may lower the accuracy of this second-opinion interpretation. Electronically signed by: Britta Munoz M.D. us Tolu Tamayo MD IMG CT PROCEDURES Final Resu lt * (ABNORMAL) SAVANA ab ql w/rflx to SAVANA qn (08/14/2024 11:40 AM TOLL TEST DESK WORKER) SAVANA Positive 1:640 Comment: Interpretive Data Normal range for SAVANA Qualitative Antibody = Negative. 1. SAVANA is performed using indirect immunofluorescence against HEp-2 cells 2. SAVANA titers are performed on all positive qualitative results. 3. A significantly positive SAVANA result is defined as a positive nuclear fluorescence at a titer of 1:80 or greater. 4. 15% of normal people above age 65 have significantly positive SAVANA results. 5% or less of normal people age 65 or under have significantly positive SAVANA results. Current interpretive data was last revised on 2020. SAVANA, quant 1:640 titer [facility] SAVANA, interp Homogeneous (A) [facility] Blood 08/14/2024 11:4 0 AM TOLL TEST DESK WORKER 08/14/2024 4:59 PM TOLL TEST DESK WORKER us Racheal Dhaliwal NP LAB BLOOD ORDERABLES F inal Result Performing Organization Address [facility] de Phone Number [facility] Department of [employer] [place], [place] [id number] * Glucose, random (Outreach) (08/14/2024 11:40 AM TOLL TEST DESK WORKER) Glucose 77 70 - 199 mg/dL Comment: Interpretive Data Fasting glucose >/= 126 mg/dl is diagnostic for diabetes. Fasting is defined as no caloric intake for at least 8 hours. Fasting glucose between 100 mg/dl to 125 mg/dl is diagnostic of prediabetes. In a patient with classic symptoms of hyperglycemia or hyperglycemic crisis, a random glucose >/= 200 mg/dl is diagnostic for diabetes. In the absence of unequivocal hyperglycemia, results should be confirmed by repeat testing. The classification and Diagnosis of Diabetes Diabetes Care 202; 46: S19-S40. Current interpretive data was last revised 2022. Blood 08/14/2024 11:4 0 AM TOLL TEST DESK WORKER 08/14/2024 4:59 PM TOLL TEST DESK WORKER us Racheal Dhaliwal NP LAB BLOOD ORDERABLES F inal Result Performing Organization Address [facility] de Phone Number [facility] [place] [address] * (ABNORMAL) eGFR (08/14/2024 11:40 AM TOLL TEST DESK WORKER) eGFR 57(L) >=60 mL/min/1. 73 m2 Comment: Interpretive Data Reference Interval Normal >/= 90 mL/min/1.73m2 Mildly decreased* 60 - 89 mL/min/1.73m2 Mildly to moderately decreased 45 - 59 mL/min/1.73m2 Moderately to severely decreased 30 - 44 mL/min/1.73m2 Severely decreased 15 - 29 mL/min/1.73m2 Kidney Failure < 15 mL/min/1.73m2 *Relative to young adult level Estimated glomerular filtration rate is determined by the 2020 CKD-EPI equation recommended by the National Kidney Foundation (A Unifying Approach to GFR Estimation: Recommendations of the NKF-ASK Task Force on Reassessing the Inclusion of Race in Diagnosing Kidney Disease, JASN 202). The CKD-EPI equation should not be used for patients with unstable renal function and has not been validated in children and those over 70. Current interpretive data was last reviewed 2021. Blood 08/14/2024 11:4 0 AM TOLL TEST DESK WORKER 08/14/2024 5:04 PM TOLL TEST DESK WORKER us Racheal Dhaliwal NP LAB BLOOD ORDERABLES F inal Result [facility] Department [place] [address] * Differential, auto (08/14/2024 11:40 AM TOLL TEST DESK WORKER) Neutrophil abs 3.8 1.5 - 6.5 K/cumm Imm gran abs 0.0 0.0 - 0.1 K/cumm [facility] Lymphocyte abs 1.0 0.8 - 3.3 K/cumm [facility] Monocyte abs 0.5 0.2 - 0.8 K/cumm [facility] Eosinophil abs 0.1 0.0 - 0.5 K/cumm [facility] Basophil abs 0.0 0.0 - 0.1 K/cumm [facility] Neutrophil pct 69.1 % [facility] Comment: Interpretive Data Percent cell count reference ranges are not reported, since discordance with absolute values may lead to misinterpretation of CBC data. Current Interpretive Data was last revised on 2017. Imm gran pct 0.2 % [facility] Comment: Interpretive Data Percent cell count reference ranges are not reported, since discordance with absolute values may lead to misinterpretation of CBC data. Current Interpretive Data was last revised on 2017. Lymphocyte pct 18.8 % [facility] Comment: Interpretive Data Percent cell count reference ranges are not reported, since discordance with absolute values may lead to misinterpretation of CBC data. Current Interpretive Data was last revised on 2017. Monocyte pct 9.2 % [facility] Comment: Interpretive Data Percent cell count reference ranges are not reported, since discordance with absolute values may lead to misinterpretation of CBC data. Current Interpretive Data was last revised on 2017. Eosinophil pct 2.2 % [facility] Comment: Interpretive Data Percent cell count reference ranges are not reported, since discordance with absolute values may lead to misinterpretation of CBC data. Current Interpretive Data was last revised on 2017. Basophil pct 0.5 % [facility] Comment: Interpretive Data Percent cell count reference ranges are not reported, since discordance with absolute values may lead to misinterpretation of CBC data. Current Interpretive Data was last revised on 2017. Blood 08/14/2024 11:4 0 AM TOLL TEST DESK WORKER 08/14/2024 4:59 PM TOLL TEST DESK WORKER us Racheal Dhaliwal NP LAB BLOOD ORDERABLES F inal Result [facility] Department [place] [address] * Comprehensive metabolic panel, without glucose (Outreach) (08/14/2024 11:40 AM TOLL TEST DESK WORKER) Sodium 143 135 - 145 mmol/L Potassium, pl 3.8 3.3 - 4.9 mmol/L [facility] Chloride 101 97 - 110 mmol/L [facility] CO2 28 22 - 32 mmol/L [facility] Anion gap 14 2 - 15 mmol/L [facility] BUN 21 6 - 25 mg/dL [facility] Creatinine 0.99 0.60 - 1.10 mg/dL [facility] Calcium 9.7 8.5 - 10.3 mg/dL [facility] Protein, pl 7.2 6.5 - 8.5 g/dL [facility] Albumin 4.2 3.5 - 5.0 g/dL [facility] Bilirubin, total 0.5 0.1 - 1.2 mg/dL [facility] Alk phos 72 40 - 130 Units/L [facility] AST 28 10 - 45 Units/L [facility] ALT 14 7 - 45 Units/L [facility] Blood 08/14/2024 11:4 0 AM TOLL TEST DESK WORKER 08/14/2024 4:59 PM TOLL TEST DESK WORKER Racheal Dhaliwal DIRECTOR OF INDIVIDUAL GIVING LAB BLOOD ORDERABLES F inal Result Performing Organization Address [facility] Co de Phone Number [facility] Department [place] [address] * (ABNORMAL) CBC with auto differential (08/14/2024 11:40 AM TOLL TEST DESK WORKER) [facility] WBC 5.5 3.8 - 9.9 K/cumm Hgb 11.6(L) 11.9 - 15.5 g/dL [facility] Hct 36.2 35.6 - 45.5 % [facility] Plt 277 150 - 400 K/cumm [facility] MPV 10.3 9.1 - 12.3 fL [facility] RBC 3.87(L) 3.90 - 5.20 M/cumm [facility] MCV 93.5 81.3 - 96.4 fL [facility] MCH 30.0 27.1 - 33.3 pg [facility] MCHC 32.0(L) 32.3 - 35.7 g/dL [facility] RDW CV 13.2 11.1 - 14.9 % [facility] RDW SD 44.8 35.7 - 48.1 fL [facility] NRBC abs 0.00 0.00 - 0.01 K/cumm [facility] Blood 08/14/2024 11:4 0 AM TOLL TEST DESK WORKER 08/14/2024 4:59 PM TOLL TEST DESK WORKER Racheal Dhaliwal NP LAB BLOOD ORDERABLES F inal Result Performing Organization Address City/[facility]/ZIP Co de Phone Number [facility] Department [place] [address] * Sjogren's syndrome B ab (08/14/2024 11:40 AM TOLL TEST DESK WORKER) Pathologist [facility] Anti-DEBBIE, SS-B <0.2 <=0.9 Ab Index Comment: Interpretive Data Negative: < 1.0 Ab Index Positive: > or = 1.0 Ab Index Current interpretive data was last revised on 2016. Blood 08/14/2024 11:4 0 AM TOLL TEST DESK WORKER 08/14/2024 4:59 PM TOLL TEST DESK WORKER Racheal Dhaliwal NP LAB BLOOD ORDERABLES F inal Result Performing Organization Address City/[facility] Co de Phone Number [facility] [place] [address] * Sjogren's syndrome A ab (08/14/2024 11:40 AM TOLL TEST DESK WORKER) [facility] Anti-DEBBIE, SS-A <0.2 <=0.9 Ab Index Comment: Interpretive Data Negative: < 1.0 Ab Index Positive: > or = 1.0 Ab Index Current interpretive data was last revised on 2016. Blood 08/14/2024 11:4 0 AM TOLL TEST DESK WORKER 08/14/2024 4:59 PM TOLL TEST DESK WORKER Racheal Dhaliwal NP LAB BLOOD ORDERABLES F inal Result Performing Organization Address [facility] de Phone Number [facility] [place] [employer] [place] [address] * Rheumatoid factor (08/14/2024 11:40 AM TOLL TEST DESK WORKER) [facility] Rheumatoid factor, quant <10.0 0.1 - 15.0 IUnits/mL Blood 08/14/2024 11:4 0 AM TOLL TEST DESK WORKER 08/14/2024 4:59 PM TOLL TEST DESK WORKER Racheal Dhaliwal NP LAB BLOOD ORDERABLES F inal Result Performing Organization Address City/[facility] Co de Phone Number [facility] [place] [address] from Last 3 Months [place] [address] [place] [address] [place] [address] Care Teams Sewage Plant Supervisor Relationship Specialty Start Date End Date Familia Rosario MD [address] [place] [id number] PCP - General Family Medicine 02/14/18
--- OUTSIDE RECORDS SUMMARY | 2024-11-01 11:23 | XMS_ITS | Continuity of Care Document ---
Author Organization [facility] Address [address] [place] [address] Phone Care Team Providers Care Glass Etcher Name Role Phone Janeen Rao Unavailable Unavailable [...] Diagnoses Date Provider Providers Copied on Encounter [facility], [address], [place], [place], [id number], [place] tel:[phone] [facility] No Information 0 Maira Vernon. [address] [facility] , [address], [place], [place], [facility], [place]. tel:[phone] Referring Provider: Janeen Hermosillo, [address] [facility] [address], [place], [place], [facility]. tel:[phone] Office/outpat ient Visit, [facility], [address] [place] [address] [address], [place], [place], [id number], [place] tel:[phone] [facility] No Information 5-201 0 Maira Vernon. [facility] , [address], [place], [facility], [place]. tel:[phone] Referring Provider: Janeen Hermosillo, [facility] [address], [place], [facility]. tel:[phone] Office/outpat ient Visit, [facility] [address] [place] [address] [address], [place], [place], [id number], [place] tel:[phone] [facility] No Information 9 Maira Vernon. [facility] , [address], [place], [facility], [place]. tel:[phone] [facility], [address] [place] [address] [address], [place], [place], [id number], [place] tel:[phone] [facility] No Information 9 Maira Vernon. [facility] , [address], [place], [facility], [place]. tel:[phone] Referring Provider: [address] [facility] [address], [place], [facility]. tel:[phone] [facility], [address] [place] [address] [address], [place], [place], [address], [place] tel:[phone] [facility] No Information 9 Rao Janeen. [address] , [address], [place], [facility], [place]. tel:[phone] Referring Provider: Janeen Hermosillo, [address], [place], [facility]. tel:[phone] [facility], [address], [place], [place], [id number], [place] tel:[phone] [facility] No Information 9 Maira Lamn. [address] , [address], [place], [facility], [place]. tel:[phone] [facility], [address] [place] [address] [address], [place], [place], [id number], [place] tel:[phone] [facility] No Information 9 Maira Wang [address] [facility] , [address], [place], [facility], [place]. tel:[phone] [facility], [address] [place] [address] [address], [place], [place], [address], [place] tel:[phone] [facility] No Information 9 Maira Wang [address] [facility] , [address], [place], [facility], [place]. tel:[phone] [facility], [address] [place] [address] [address], [place], [place], [address], [place] tel:[phone] [facility] No Information 9 Maira Wang [address] , [address], [place], [facility], [place]. tel:[phone] [facility], [address], [place], [place], [address], [place] tel:[phone] [facility] No Information 9 Maira Wnag [address] , [address], [place], [facility], . tel:[phone] [facility], [address] [place] [address] [address], [place], [place], [id number], tel:[phone] [facility] [place] No Information 3-200 8 Maira Wang [address] [facility] , [address], [place], [facility], . tel:[phone] Referring Provider: [address] [facility] [place] [address], [place], [facility]. tel:[phone] Office/outpat ient Visit, [facility], [address] [place] [address] [address], [place], [place], [address], tel:[phone] [facility] [place] No Information 8-200 8 Maira Wang [address] [place] [address] , [address], [place], [facility], . tel:[phone] Office/outpat ient Visit, [facility], [address] [place] [address] [address], [place], [place], [id number], tel:[phone] [facility] [place] No Information 5-200 7 Maira Wang [facility] , [address], [place], [facility], . tel:[phone] Office/outpat ient Visit, [facility], [address] [place] [address] [address], [place], [place], [address], tel:[phone] [facility] [place] No Information 7-200 7 Maira Wang [address] [facility] , [address], [place], [facility], . tel:[phone] Family History Family Member Type Diagnosis Age At Onset No Information Payers Payer name Insurance type Covered alliance party ID Authoriza tikamilla(s) [place] [id number] Social History Type Description Quantity Date Captured [...]
--- OUTSIDE RECORDS SUMMARY | 2024-11-01 11:23 | XMS_ITS | Clinical Summary ---
Author Organization [facility] [address] Address [address] [place] [address] Care Team Providers Care Pocket Builder Name Role Phone Familia Rosario MD Primary Care Provider [phone] Allergies Active Allergy Reactions Criticality Noted Date [...] Type Department Care Team Description 10/08/[address] [facility] [address] [place] [phone] Dulce Lazo RMA 08/16/2024 8:32 AM LEATHER COLORER - 08/16/2024 11:59 PM LEATHER COLORER Hospital Encounter [facility] ([facility]) [address] [place] [address] Diagnosis unknown Discharge Disposition: Discharge to home or self care 08/14/2024 11:40 AM LEATHER COLORER - 08/14/2024 11:59 PM LEATHER COLORER Hospital Encounter [facility] [address] [place] [address] Discharge Disposition: Discharge to home or self care 08/14/2024 10:00 AM LEATHER COLORER Office Visit [facility] [address] [place] [phone] Racheal Dhaliwal, VESTA Dry mouth (Primary Dx); Dry eye; Encounter for long-term (current) use of antibiotics from Last 3 Months Immunizations Immunization Administration Dates Next Due Influenza, [...] Comments Blood Pressure 149/72 08/14/2024 10:14 AM LEATHER COLORER Pulse 73 08/14/2024 10:14 AM LEATHER COLORER Temperature 36.2 C (97.2 F) 08/14/2024 10:14 AM LEATHER COLORER Respiratory Rate - - Oxygen Saturation 95% 08/14/2024 10:14 AM LEATHER COLORER Inhaled Oxygen Concentration - - Weight 72.6 kg (160 lb) 08/14/2024 10:14 AM LEATHER COLORER Height 157 cm (5' 1.81 ) 08/14/2024 10:14 AM LEATHER COLORER Body Mass Index 29.44 08/14/2024 10:14 AM LEATHER COLORER Plan of Treatment Health Maintenance Due Date Last Done Comments Depression Screening 1943 Fall Risk Assessment 1945 Osteoporosis Screening-Bone Density Scan 1943 Hepatitis B Screening 1961 Zoster Vaccine (1 of 2) 1993 Well Visit 65+ 01/28/2008 Covid-19 Vaccine ( - 2023-2 5 season) 2024 05/31/2023, 05/20/2021, 08/29/2020, Additional history exists Influenza Vaccine (Season Ended) 2025 03/25/2023, 03/31/2021, 02/28/2020, Additional history exists DTaP/Tdap/Td Vaccine (2 - Td or Tdap) 03/01/2029 03/01/2019 Pneumococcal vaccine 65+ Completed 11/22/2023, 07/14 Procedures Procedure Name Priority Date/Time Associated Diagnosis Comments CT BODY OUTSIDE CONSULT Routine 08/16/2024 8:32 AM LEATHER COLORER Diagnosis unknown EGFR Routine 08/14/2024 11:40 AM LEATHER COLORER Dry mouth Dry eye DIFFERENTIAL AUTO Routine 08/14/2024 11: 40 AM LEATHER COLORER Dry mouth Dry eye GLUCOSE, RANDOM (OUTREACH) Routine 08/14/2024 11:40 AM LEATHER COLORER Dry mouth Dry eye COMPREHENSIVE METABOLIC PANEL WITHOUT GLUCOSE (OUTREACH) Routine 08/14/2024 11:40 AM LEATHER COLORER Dry mouth Dry eye COMPREHENSIVE METABOLIC PANEL (OUTREACH) Routine 08/14/2024 11:40 AM LEATHER COLORER Dry mouth Dry eye CBC WITH AUTO DIFFERENTIAL Routine 08/14/2024 11:40 AM LEATHER COLORER Dry mouth Dry eye RHEUMATOID FACTOR Routine 08/14/2024 11: 40 AM LEATHER COLORER Dry mouth Dry eye SAVANA QUALITATIVE WITH REFLEX TO SAVANA QUANTITATIVE Routine 08/14/2024 11:40 AM LEATHER COLORER Dry mouth Dry eye SJOGRENS SYNDROME-A ANTIBODY Routine 08/14/2024 11:40 AM LEATHER COLORER Dry mouth Dry eye SJOGRENS SYNDROME-B ANTIBODY Routine 08/14/2024 11:40 AM LEATHER COLORER Dry mouth Dry eye from Last 3 Months Results * CT Body Outside Consult (08/16/2024 8:32 AM LEATHER COLORER) Anatomical Region Laterality Modality Body N/A Computed Tomogra phy 08/16/2024 9:38 AM LEATHER COLORER Impressions 08/16/2024 9:38 AM LEATHER COLORER 1. Previously noted new 8 mm right [...] images may or may not represent the hoh source data set and thus may contain changes that may lower the accuracy of this second-opinion interpretation. Electronically signed by: Britta Munoz M.D. Narrative 08/16/2024 9:38 AM LEATHER COLORER EXAMINATION: RADIOLOGY CONSULTATION ON OUTSIDE IMAGING STUDY STUDY INITIALLY PERFORMED: 04/19/2024 at [place]. TYPE OF STUDY: Multiple CT images of [...] IMAGING STUDY STUDY INITIALLY PERFORMED: 04/19/2024 at [place]. TYPE OF STUDY: Multiple CT images of [...] images may or may not represent the hoh source data set and thus may contain changes that may lower the accuracy of this second-opinion interpretation. Electronically signed by: Britta Munoz M.D. Tolu Tamayo MD IM CT PROCEDURES Final Resu lt * (ABNORMAL) SAVANA ab ql w/rflx to SAVANA qn (08/14/2024 11:40 AM LEATHER COLORER) SAVANA Positive 1:640 Comment: Interpretive Data Normal [...] revised on 2020. SAVANA, quant 1:640 titer [facility] SAVANA, interp Homogeneous (A) [facility] Blood 08/14/2024 11:4 0 AM LEATHER COLORER 08/14/2024 4:59 PM LEATHER COLORER Racheal Dhaliwal NP LAB BLOOD ORDERABLES F inal Result Performing Organization Address [facility] Co de Phone Number [facility] Department [place] [address] * Glucose, random (Outreach) (08/14/2024 11:40 AM LEATHER COLORER) Pathologist [facility] Glucose 77 70 - 199 mg/dL Comment: [...] classification and Diagnosis of Diabetes Diabetes Care 2021; 46: S19-S40. Current interpretive data was last revised 2022. Blood 08/14/2024 11:4 0 AM LEATHER COLORER 08/14/2024 4:59 PM LEATHER COLORER Racheal Dhaliwal NP LAB BLOOD ORDERABLES F inal Result Performing Organization Address [facility] Co de Phone Number [facility] Department [place] [address] * (ABNORMAL) eGFR (08/14/2024 11:40 AM LEATHER COLORER) Pathologist [facility] eGFR 57(L) >=60 mL/min/1. 73 m2 Comment: [...] of Race in Diagnosing Kidney Disease, JASN 2020). The CKD-EPI equation should not be used for patients with unstable renal function and has not been validated in children and those over 70. Current interpretive data was last reviewed 2021. Blood 08/14/2024 11:4 0 AM LEATHER COLORER 08/14/2024 5:04 PM LEATHER COLORER Racheal Dhaliwal NP LAB BLOOD ORDERABLES F inal Result [facility] Department [place] [address] * Differential, auto (08/14/2024 11:40 AM LEATHER COLORER) Pathologist [facility] Neutrophil abs 3.8 1.5 - 6.5 K/cumm Imm gran abs 0.0 0.0 - 0.1 K/cumm [facility] Lymphocyte abs 1.0 0.8 - 3.3 K/cumm [facility] Monocyte abs 0.5 0.2 - 0.8 K/cumm [facility] Eosinophil abs 0.1 0.0 - 0.5 K/cumm [facility] Basophil abs 0.0 0.0 - 0.1 K/cumm [facility] Neutrophil pct 69.1 % [facility] Comment: Interpretive Data Percent cell count reference ranges are not reported, since discordance with absolute values may lead to misinterpretation of CBC data. Current Interpretive Data was last revised on 2017. Imm gran pct 0.2 % [facility] Comment: Interpretive Data Percent cell count reference ranges are not reported, since discordance with absolute values may lead to misinterpretation of CBC data. Current Interpretive Data was last revised on 2017. Lymphocyte pct 18.8 % [facility] Comment: Interpretive Data Percent cell count reference ranges are not reported, since discordance with absolute values may lead to misinterpretation of CBC data. Current Interpretive Data was last revised on 2017. Monocyte pct 9.2 % [facility] Comment: Interpretive Data Percent cell count reference ranges are not reported, since discordance with absolute values may lead to misinterpretation of CBC data. Current Interpretive Data was last revised on 2017. Eosinophil pct 2.2 % [facility] Comment: Interpretive Data Percent cell count reference ranges are not reported, since discordance with absolute values may lead to misinterpretation of CBC data. Current Interpretive Data was last revised on 2017. Basophil pct 0.5 % [facility] Comment: Interpretive Data Percent cell count reference ranges are not reported, since discordance with absolute values may lead to misinterpretation of CBC data. Current Interpretive Data was last revised on 2017. Blood 08/14/2024 11:4 0 AM LEATHER COLORER 08/14/2024 4:59 PM LEATHER COLORER us Racheal Dhaliwal LICENSING SERVICES CLERK LAB BLOOD ORDERABLES F inal Result [facility] Department [place] [address] * Comprehensive metabolic panel, without glucose (Outreach) (08/14/2024 11:40 AM LEATHER COLORER) Sodium 143 135 - 145 mmol/L Potassium, pl 3.8 3.3 - 4.9 mmol/L [facility] Chloride 101 97 - 110 mmol/L [facility] CO2 28 22 - 32 mmol/L [facility] Anion gap 14 2 - 15 mmol/L [facility] BUN 21 6 - 25 mg/dL [facility] Creatinine 0.99 0.60 - 1.10 mg/dL [facility] Calcium 9.7 8.5 - 10.3 mg/dL [facility] Protein, pl 7.2 6.5 - 8.5 g/dL [facility] Albumin 4.2 3.5 - 5.0 g/dL [facility] Bilirubin, total 0.5 0.1 - 1.2 mg/dL [facility] Alk phos 72 40 - 130 Units/L [facility] AST 28 10 - 45 Units/L [facility] ALT 14 7 - 45 Units/L [facility] Blood 08/14/2024 11:4 0 AM LEATHER COLORER 08/14/2024 4:59 PM LEATHER COLORER Racheal Dhaliwal LICENSING SERVICES CLERK LAB BLOOD ORDERABLES F inal Result [facility] Department [place] [address] * (ABNORMAL) CBC with auto differential (08/14/2024 11:40 AM LEATHER COLORER) WBC 5.5 3.8 - 9.9 K/cumm Hgb 11.6(L) 11.9 - 15.5 g/dL [facility] Hct 36.2 35.6 - 45.5 % [facility] Plt 277 150 - 400 K/cumm [facility] MPV 10.3 9.1 - 12.3 fL [facility] RBC 3.87(L) 3.90 - 5.20 M/cumm [facility] MCV 93.5 81.3 - 96.4 fL [facility] MCH 30.0 27.1 - 33.3 pg [facility] MCHC 32.0(L) 32.3 - 35.7 g/dL [facility] RDW CV 13.2 11.1 - 14.9 % [facility] RDW SD 44.8 35.7 - 48.1 fL [facility] NRBC abs 0.00 0.00 - 0.01 K/cumm [facility] Blood 08/14/2024 11:4 0 AM LEATHER COLORER 08/14/2024 4:59 PM LEATHER COLORER Racheal Dhaliwal NP LAB BLOOD ORDERABLES F inal Result Performing Organization Address [facility] Co de Phone Number [facility] [place] [address] * Sjogren's syndrome B ab (08/14/2024 11:40 AM LEATHER COLORER) Anti-DEBBIE, SS-B <0.2 <=0.9 Ab Index Comment: Interpretive Data Negative: < 1.0 Ab Index Positive: > or = 1.0 Ab Index Current interpretive data was last revised on 2016. Blood 08/14/2024 11:4 0 AM LEATHER COLORER 08/14/2024 4:59 PM LEATHER COLORER Racheal Dhaliwal NP LAB BLOOD ORDERABLES F inal Result Performing Organization Address [facility] de Phone Number [facility] [place] [address] * Sjogren's syndrome A ab (08/14/2024 11:40 AM LEATHER COLORER) Anti-DEBBIE, SS-A <0.2 <=0.9 Ab Index Comment: Interpretive Data Negative: < 1.0 Ab Index Positive: > or = 1.0 Ab Index Current interpretive data was last revised on 2016. Blood 08/14/2024 11:4 0 AM LEATHER COLORER 08/14/2024 4:59 PM LEATHER COLORER Racheal Dhaliwal NP LAB BLOOD ORDERABLES F inal Result [facility] Department [place] [address] * Rheumatoid factor (08/14/2024 11:40 AM LEATHER COLORER) Rheumatoid factor, quant <10.0 0.1 - 15.0 IUnits/mL Blood 08/14/2024 11:4 0 AM LEATHER COLORER 08/14/2024 4:59 PM LEATHER COLORER us Racheal Dhaliwal NP LAB BLOOD ORDERABLES F inal Result Performing Organization Address [facility] Co de Phone Number [facility] Department [place] [address] from Last 3 Months Insurance MEDICARE [facility] [place] [address] MEDICARE [facility] MEDICARE [facility] Care Teams Pocket Builder Relationship Specialty Start Date End Date Familia Rosario MD [address] [place] [address] PCP - General Family Medicine 02/14/18
--- OUTSIDE RECORDS SUMMARY | 2024-11-01 11:23 | XMS_ITS | Encounter Summary ---
Author Organization [facility] Address [address] [place] [address] Phone Care Team Providers Care Sprayer Machine Name Role Phone Familia Rosario MD Primary Care Provider [phone] Encounter Details Date Type Department Care Team (Late st Contact Info) Description 10/08/2024 Telephone [facility] Infectious Diseases [address] [place] [address] [address] [place] [address] Dulce Lazo RMA Social History Tobacco Use Types Packs/Day Years Used Date Smoking Tobacco: Former Cigarettes Smokeless Tobacco: Never Comments Unknown Sex and Gender Information Value Date Recorded Sex Assigned at Not on file Legal Sex Female 3:37 PM CDT Gender Identity Not on file Sexual Orientation Not on file documented as of this encounter Miscellaneous Notes * Telephone Encounter - Krupa Hastings - 10/10/2024 1:16 PM CDT Susceptibility added, spoke with pt no concern at this time. * Telephone Encounter - Krupa Hastings - 10/08/2024 4:00 PM CDT Called [facility], waiting for results. * Telephone Encounter - Dulce aLzo RMA - 10/08/2024 1:20 PM CDT Raven would like the results of her sputum lab. Please call [phone] documented in this encounter Plan of Treatment Not on file documented as of this encounter Visit Diagnoses Not on filedocumented in this encounter Care Teams Sprayer Machine Relationship Specialty Start Date End Date Familia Rosario MD [address] [place] [address] PCP - General Family Medicine 02/14/18 documented as of this encounter
--- OUTSIDE RECORDS SUMMARY | 2024-11-01 11:23 | XMS_ITS | Continuity of Care Document ---
Author Organization [facility] Address [address] [place] [address] Phone Care Team Providers Care Silicator Name Role Phone Jeaneth Estrada MD Unavailable [...] Providers Copied on Encounter [facility], [address], [place], [address], [place] tel:[phone] [facility] No Information Tyler Eric. [address] [place], [place], [id number] . tel: [phone] OFFICE/OUTPA TIENT VISIT NEW [facility], [address], [place], [address], [place] tel:[phone] [facility] Body mass index [BMI] 27.0-27.9, adultPain in right hipSacral insufficiency fracture, initial encounterClose d fracture of superior ramus of right pubis, initial encounterGlute al tendinitis, left hipClosed fracture of right inferior pubic ramus, initial encounterGlute al tendinitis of right buttock [address] Dawn Espino. [address], [place], [address]. tel: [phone] Referring Provider: Familia Ignacio, [address], [place], [address]. tel:[phone] Family History Family Member Type Diagnosis Age At Onset Sister Problem Hypertension Mother Problem Breast Father Problem Cardiovascular disease Mother Problem Cardiovascular disease Brother Problem Hypertension Payers Payer name Insurance type Covered constitution party ID Authoriza tion(s) Medicare E2 OT [id number] [facility] [place] [id number] Social History Type Description Quantity Date [...]
--- OUTSIDE RECORDS SUMMARY | 2024-11-01 11:23 | XMS_ITS | Encounter Summary ---
Author Organization [facility] Address [address] [place] [address] Phone Care Team Providers Care Duct Maker Name Role Phone Familia Rosario MD Primary Care Provider [phone] Encounter Details Date Type Department Care Team [...] on filedocumented in this encounter Care Teams Duct Maker Relationship Specialty Start Date End Date Familia Rosario MD [address] [place] [address] PCP - General Family Medicine 02/14/18 documented as of this encounter
== END 2024-11-01 11:21 | disposition home or self-care (01) ==
PROVIDERS: PCP Family Medicine; Visit Provider Nurse Practitioner Family
DX: A31.0 Pulmonary mycobacterial infection (principal); R91.8 Other nonspecific abnormal finding of lung field; J43.9 Emphysema, unspecified; S22.080D Wedge compression fracture of T11-T12 vertebra, subsequent encounter for fracture with routine healing; I71.21 Aneurysm of the ascending aorta, without rupture; X58.XXXD Exposure to other specified factors, subsequent encounter
CPT/HCPCS: 71250

== ENCOUNTER 2025-04-26 12:36 | Emergency (ER) | payer MEDICARE, OTHER, SELFPAY ==
[2025-04-26] VITALS (25 sets, daily range): BP systolic 60–112; BP diastolic 36–65; PULSE 86–125; RESP 16–33; TEMP 37.1; O2SAT 85–97
--- NOTE | ~2025-04-26 | XR_ITS ---
EXAMINATION: XR chest 2V, 04/26/2025 13:33 DIRECTOR SUPPLIER QUALITY HISTORY: SOB COMPARISON: No comparisons available. Technique: 2 views obtained. Findings: Mild pulmonary venous congestion. COPD changes noted. No pneumothorax. Mild cardiomegaly. Mediastinal and hilar contours are within normal limits. Bony thorax no acute abnormality. Impression: Mild CHF Reviewed, dictated and finalized at location P. CTOR SUPPLIER QUALITY Impression: Mild CHF
--- NOTE | 2025-04-26 12:41 | ECG_ITS ---
Test Date: 2025-04-26 12:57:38 Measurements Intervals Maxwell Rate: 111 P: 0 DC: 0 QRS: 17 QRSD: 101 T: 78 QT: 326 QTc: 445 Interpretive Statements ATRIAL FIBRILLATION WITH RAPID VENTRICULAR RESPONSE NONSPECIFIC ST & T-WAVE ABNORMALITY ABNORMAL RHYTHM ECG No previous ECG available for comparison Electronically Signed On 04-26-2025 13:29:34 PROJECTION PRINTER by Villa Coats M.D.
[2025-04-26 13:18] LABS: Hematocrit 36.7 % (37.0-47.0); Hemoglobin 11.6 g/dL (12.0-15.0); Immature Granulocyte Percent A 0.3 % (0-0.5); Lymphocytes Absolute Auto 1.06 K/mm3 (0.9-3.2); Mean Corpuscular HGB Conc 31.6 g/dl (32-36); Mean Corpuscular Hemoglobin 29.3 pg (26-34); Mean Corpuscular Volume 92.7 fl (80-100); Nucleated Red Blood Cells Absolute Auto 0.000 K/mm3 (0.0-0.012); Nucleated Red Blood Cells Perc 0.0 % (0.0-0.2); Platelet Count Result 292 k/mm3 (150-375); Red Blood Count 3.96 M/mm3 (4.2-5.4); White Blood Count 7.5 K/mm3 (4.5-10.0)
[2025-04-26 13:36] LABS: Alanine Aminotransferase 17 U/L (6-35); Albumin Level 4.1 g/dL (3.5-5.1); Alkaline Phosphatase 76 U/L (38-126); Anion Gap 7 mmol/L (4-12); Aspartate Amino Transferase 30 U/L (14-36); Bilirubin,Total 0.7 mg/dL (0.2-1.3); Blood Urea Nitrogen 17 mg/dL (7-17); Calcium 9.3 mg/dL (8.4-10.2); Carbon Dioxide 29 mmol/L (22-30); Chloride 99 mmol/L (98-107); Estimated CRCL calculation 37 ml/min; Estimated Glomerular Filt Rate 58; Glucose 125 mg/dL (65-110); Lipase 85 U/L (23-300); Potassium 3.7 mmol/L (3.4-5.0); Sodium 135 mmol/L (137-145); Total Protein 7.1 g/dL (6.3-8.2)
[2025-04-26 13:43] LABS: Troponin I 0.017 ng/mL (0.000-0.034)
[2025-04-26 13:46] LABS: INR 1.2; Partial Thromboplastin Time 32.4 Seconds (22.3-36.8); Prothrombin Time 15.0 Seconds (11.1-14.7)
--- NOTE | 2025-04-26 15:38 | ED.SOB ---
HPI - SOB/Dyspnea General Chief Complaint: Shortness of Breath/Dyspnea Stated Complaint: pulse ox 89-90, hx copd, palpitations Time Seen by Provider: 04/26/25 12:50 Source: patient and family Mode of arrival: ambulatory Limitations: no limitations History of Present Illness HPI Narrative: 80-year-old with a history of COPD on 2 L of oxygen at bedtime, hypertension presents to the ER with a complaint of breath on lower to size since this morning. She denies any chest pain, cough, fever or chills. Pt states she has a H/O pf Afib but not on any anticoagulant . She endorses Dr. Perales as her outpatient facility physical therapist Pertinent past history: COPD Onset (ago): day(s) (1) Timing: constant Severity: mild Exacerbating factors: nothing Relieving factors: oxygen Known history of: COPD Treatment prior to arrival: oxygen Related Data Home oxygen amount: 2 liters Home Medications ?Medication ?Instructions ?Recorded ?Confirmed ?Last Taken ?Type calcium 600 mg (as carbonate)-vit 1 tablet PO DAILY 07/12/19 12/19/24 02/14/22 History D3 5 mcg (200 unit)-minerals tablet (Calcium 600 + Minerals) cholecalciferol (vitamin D3) 1 cap QAM 01/29/22 12/19/24 02/14/22 History melatonin 1 mg tablet 1 mg PO QHS 02/05/22 12/19/24 02/17/22 History azithromycin 500 mg tablet 500 mg PO 3XW 03/25/23 12/19/24 Unknown History ethambutol 400 mg tablet 1,200 mg PO 3XW 03/25/23 12/19/24 Unknown History rifampin 300 mg capsule 600 mg PO 3XW 03/25/23 12/19/24 Unknown History magnesium carbonate 250 mg capsule 250 mg PO .qd 08/11/23 12/19/24 Unknown History Allergies Allergy/AdvReac Type Severity Reaction Status Date / Time codeine Allergy Unknown Vomiting Verified 04/26/25 12:41 losartan Allergy Unknown Cough Verified 04/26/25 12:41 timolol Allergy Unknown SOB Verified 04/26/25 12:41 amoxicillin (From Augmentin) AdvReac Nausea and Verified 04/26/25 12:41 Vomiting clavulanic acid (From AdvReac Nausea and Verified 04/26/25 12:41 Augmentin) Vomiting Review of Systems Review of Systems: All systems reviewed & are unremarkable except as noted in HPI and below Constitutional: Constitutional: Reports no additional constitutional complaints Eyes: Eyes: Reports no additional eye complaints ENT: Reports system reviewed and no additional complaints, except as documented Cardiovascular: Cardiovascular: Reports no additional cardiovascular complaints Respiratory: Respiratory: Reports as per HPI Gastrointestinal: Gastrointestinal: Reports no additional gastrointestinal complaints Musculoskeletal: Musculoskeletal: Reports no additional musculoskeletal complaints [facility] Past Medical History Medical History PVT (paroxysmal ventricular tachycardia) PAT (paroxysmal atrial tachycardia) CHF (congestive heart failure) Depression with anxiety Osteoporosis TEMO (obstructive sleep apnea) GERD (gastroesophageal reflux disease) Asthma Hypertension Chronic obstructive pulmonary disease Surgical History Surgical History History of reverse total replacement of left shoulder joint (~02/18/22) Status post reverse total arthroplasty of left shoulder History of inguinal hernia repair H/O hernia repair (~2020) 11/14/20 1. Strangulated right femoral hernia repair 2. Small-bowel (ileum) resection with yeij-bp-rsyx anastomosis History of hysterectomy (~2000) Family History Family History Mother Family history of malignant neoplasm of breast in first degree relative Unknown Hypertension Other Family history of arthritis Family history of malignant neoplasm of thyroid Social History Social History Social History: The patient is and lives home alone. She has 2 children. 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 She is a former smoker. She does not use any marijuana or illicit drugs. She does not use any alcohol. Code status full code Smoking packs per day: 1 Smoking cigarettes per day: 20.0 Years smoked: 50 Smoking pack-years: 50.00 Smoking status: Former smoker Second hand tobacco smoke exposure: No Smoking end date: 11/11/20 Alcohol intake: never Substance use: never Substance use type: does not use Do You Feel Safe in your Home?: Yes Lack of Transportation: No Lack of Food: Never True Current Housing: I Have Housing Concerned About Future Housing: No Difficulty Paying Gas/Electric Bills: No Difficulty Paying for Meds: No Currently Unemployed: No Education: High School Diploma/GED Difficulty w/ Childcare or Family Care: No Living arrangements: alone Gender identity (if verbalized by the patient): Female Spiritual care concerns: No Exam Narrative: GENERAL: Well-appearing, well-nourished, and in no acute distress. HEAD: Normocephalic, atraumatic. EYES: PERRLA and EOMI. ENT: Nares clear, no rhinorrhea or epistaxis. Mucous membranes moist. NECK: Supple. CHEST: Clear to auscultation. No respiratory distress. HEART: Regular rate and rhythm. No murmur heard. Normal peripheral pulses. ABDOMEN: Soft, nontender, nondistended, normal active bowel sounds. EXTREMITIES: Normal range of motion. No edema. SKIN: Warm, dry, no rash. NEURO: No focal deficits. Alert and oriented x3. PSYCH: Normal mood and affect. Course Course Emergency Course: Patient upon arrival who was in AFib with RVR with a heart rate of 111. it gradually came down on it s own still remained in Afib . i discussed with Dr. Perales , pt can be disccharged on amiodarone and Eliquis and he will follow-up in office in 1 week. I did inform this to the patient they feel comfortable going home. Also advised her to be on 2 L of oxygen during the daytime and continue rest of the home medication. Vital Signs Vital signs: Vital Signs Temperature 37.1 C 04/26/25 12:38 Pulse Rate 125 H 04/26/25 12:38 Respiratory Rate 20 04/26/25 12:38 Blood Pressure 100/57 L 04/26/25 12:38 Pulse Oximetry 92 04/26/25 12:38 Oxygen Delivery Room Air 04/26/25 12:38 Temperature 37.1 C 04/26/25 12:38 Pulse Rate 125 H 04/26/25 12:38 Respiratory Rate 20 04/26/25 12:38 Blood Pressure 100/57 L 04/26/25 12:38 Pulse Oximetry 92 04/26/25 12:38 Oxygen Delivery Room Air 04/26/25 12:38 MDM - SOB/Dyspnea Differential Diagnosis Differential diagnosis: Likely acute exacerbation of chronic obstructive airways disease, congestive heart failure and asthma with exacerbation Medical Records Attestation: I reviewed the patient's medical records. Lab Data Attestation: I reviewed the patient's lab results. 04/26/25 13:12 04/26/25 13:12 Labs: Lab Results 04/26/25 Range/Units 13:12 WBC 7.5 (4.5-10.0) K/mm3 RBC 3.96 L (4.2-5.4) M/mm3 Hgb 11.6 L (12.0-15.0) g/dL Hct 36.7 L (37.0-47.0) % MCV 92.7 (80-100) fl MCH 29.3 (26-34) pg MCHC 31.6 L (32-36) g/dl RDW 13.1 (11.5-14.5) % Plt Count 292 (150-375) k/mm3 MPV 9.6 (7.4-10.4) fl Immature Gran % (Auto) 0.3 (0-0.5) % Neut % (Auto) 76.0 H (45.5-73.1) % Lymph % (Auto) 14.2 L (18.3-44.2) % [place] % (Auto) 7.7 (2.6-8.5) % Eos % (Auto) 1.3 (0-4.4) % Baso % (Auto) 0.5 (0.2-1.2) % Lymph # (Auto) 1.06 (0.9-3.2) K/mm3 [place] # (Auto) 0.6 (0.1-0.6) K/mm3 Eos # (Auto) 0.1 (0-0.3) K/mm3 Baso # (Auto) 0.0 (0.0-0.1) K/mm3 Abs Immat Gran (auto) 0.02 (0.00-0.031) K/mm3 Absolute Neuts (auto) 5.7 (1.3-6.7) K/mm3 Absolute Nucleated RBC 0.000 (0.0-0.012) K/mm3 Nucleated RBC % 0.0 (0.0-0.2) % PT 15.0 H (11.1-14.7) Seconds INR 1.2 APTT 32.4 (22.3-36.8) Seconds Sodium 135 L (137-145) mmol/L Potassium 3.7 (3.4-5.0) mmol/L Chloride 99 (98-107) mmol/L Carbon Dioxide 29 (22-30) mmol/L Anion Gap 7 (4-12) mmol/L BUN 17 (7-17) mg/dL Creatinine 0.92 (0.7-1.0) mg/dL Estim Creat Clear Calc 37 ml/min Estimated GFR 58 L (59 - ) Glucose 125 H (65-110) mg/dL Calcium 9.3 (8.4-10.2) mg/dL Total Bilirubin 0.7 (0.2-1.3) mg/dL AST 30 (14-36) U/L ALT 17 (6-35) U/L Alkaline Phosphatase 76 (38-126) U/L Troponin I 0.017 (0.000-0.034) ng/mL Total Protein 7.1 (6.3-8.2) g/dL Albumin 4.1 (3.5-5.1) g/dL Lipase 85 (23-300) U/L Imaging Data Radiologist's impression: ITS Impressions Chest X-Ray 04/26/25 13:42 Impression: Mild CHF ECG Data EKG #1: ECG completion date: 04/26/25 ECG completion time: 12:57 EKG Interpretation: normal rate (111), atrial fibrillation and no ST changes Discharge Plan Discharge Clinical Impression: Paroxysmal atrial fibrillation COPD (chronic obstructive pulmonary disease) Qualifiers: COPD type: unspecified COPD Qualified Code(s): J44.9 - Chronic obstructive pulmonary disease, unspecified Patient Disposition: Home Condition: Stable Instructions: A-fib (Atrial Fibrillation) (ED), COPD (Chronic Obstructive Pulmonary Disease) (DC) Additional Instructions: Stop lisinopril and HCTZ , take amiodarone and Eliquis as prescribed, follow-up with Dr. Gallo next week continue home medication. Patient Language: Estonian Prescriptions: New amiodarone 200 mg tablet 200 mg PO DAILY Qty: 30 0RF Eliquis 5 mg tablet 5 mg PO BID Qty: 60 0RF No Action melatonin 1 mg tablet 1 mg PO QHS baclofen 5 mg tablet 5 mg PO DAILY Qty: 60 1RF Calcium 600 + Minerals 600 mg calcium- 200 unit tablet 1 tablet PO DAILY Patient Comments: QAM magnesium carbonate 250 mg capsule 250 mg PO .qd ethambutol 400 mg tablet 1,200 mg PO 3XW azithromycin 500 mg tablet 500 mg PO 3XW rifampin 300 mg capsule 600 mg PO 3XW albuterol sulfate 2.5 mg /3 mL (0.083 %) solution for nebulization 2.5 mg inhalation Q4-6H PRN (Reason: shortness of breath or wheezing) Qty: 360 2RF cholecalciferol (vitamin D3) 1 cap QAM diltiazem HCl [Tiadylt ER] 120 mg capsule,extended release 24hr See Rx Instructions .ROUTE .COMPLEX Qty: 90 2RF Dose Instruction: TAKE 1 CAPSULE BY MOUTH EVERY DAY Rx Instructions: TAKE 1 CAPSULE BY MOUTH EVERY DAY Trelegy Ellipta 100-62.5-25 mcg blister with device 1 inh inhalation Q24H 90 Days Qty: 180 3RF Rx Instructions: rinse and spit citalopram 10 mg tablet 10 mg PO DAILY Qty: 90 1RF celecoxib 50 mg capsule 50 mg PO BID Qty: 60 1RF lisinopril-hydrochlorothiazide 20-25 mg tablet See Rx Instructions .ROUTE .COMPLEX Qty: 90 2RF Dose Instruction: TAKE 1 TABLET BY MOUTH EVERY DAY Rx Instructions: TAKE 1 TABLET BY MOUTH EVERY DAY albuterol sulfate 90 mcg/actuation HFA aerosol inhaler 1 inh inhalation Q4H PRN (Reason: shortness of breath or wheezing) Qty: 8.5 0RF Follow-up/Referrals: Edwin Perales DO [Physician, Cardiology] Familia Rosario MD [Primary Care Provider, Family Practice] Time of Disposition: 15:41
--- OUTSIDE RECORDS SUMMARY | 2025-04-26 16:56 | XMS_ITS | Clinical Summary ---
Author Organization [facility] [address] Address [address] [place] [address] Care Team Providers Care Hospital Security Officer Name Role Phone Familia Rosario MD Primary Care Provider [phone] Allergies Active Allergy Reactions Criticality Noted Date [...] Encounters Date Type Department Care Team Description 02/19/2025 11:00 AM CDT Office Visit [facility] [address] [place] [phone] Racheal Dhaliwal NP Pulmonary mycobacterial infection (HCC) (Primary Dx) 02/19/2025 Telephone [facility] [address] [place] [phone] Krupa Hastings 02/19/2025 Orders Only [facility] [address] [place] [phone] Racheal Dhaliwal NP Pulmonary mycobacterial infection (HCC) (Primary Dx) 02/15/2025 8:49 AM CDT - 02/15/2025 11:59 PM CDT Hospital Encounter [facility] [address] [place] [id number] Diagnosis unknown Discharge Disposition: Discharge to home or self care 02/15/2025 Telephone [facility] [address] [place] [phone] Dulce Lazo RMA 02/13/2025 Telephone [facility] [address] [place] [phone] Gisele Sesay from Last 3 Months Immunizations Immunization Administration [...] Sign Reading Time Taken Comments Blood Pressure 144/72 02/19/2025 11:06 AM CDT Pulse 74 02/19/2025 11:06 AM CDT Temperature 36.7 C (98 F) 02/19/2025 11:06 AM CDT Respiratory Rate - - Oxygen Saturation 94% 02/19/2025 11:06 AM CDT Inhaled Oxygen Concentration - - Weight 73 kg (161 lb) 02/19/2025 11:06 AM CDT Height 157 cm (5' 1.81) 02/19/2025 11:06 AM CDT Body Mass Index 29.63 02/19/2025 11:06 AM CDT Plan of Treatment Health Maintenance Due Date Last Done Comments Depression Screening 1945 Fall Risk Assessment 1945 Osteoporosis Screening-Bone Density Scan 1945 Hepatitis B Screening 1961 Zoster Vaccine (1 of 2) 1993 Well Visit 65+ 01/28/2008 Covid-19 Vaccine (5 - 2024-2 6 season) 2025 05/31/2023, 05/20/2021, 08/29/2020, Additional history exists Influenza Vaccine (#1) 2025 , 03/31/2021, 02/28/2020, Additional history exists DTaP/Tdap/Td Vaccine (2 - Td or Tdap) 03/01/2029 03/01/2019 Pneumococcal vaccine 65+ Completed 11/22/2023, 07/14 Procedures Procedure Name Priority Date/Time Associated Diagnosis Comments CT BODY OUTSIDE CONSULT Routine 02/15/2025 8:49 AM CDT Diagnosis unknown from Last 3 Months Results * CT Body Outside Consult (02/15/2025 8:49 AM CDT) Anatomical Region Laterality Modality Body N/A Computed Tomogra phy 02/15/2025 10:3 5 AM CDT Impressions 02/15/2025 11:33 AM CDT 1. Multiple pulmonary nodules are likely bronchoceles, with a few slightly increased in size. Recommend attention on follow up with CT chest in 6 months. 2. Asymmetric left breast tissue. Recommend correlation with breast imaging if not recently performed. The findings, conclusions and recommendations within this report do not replace the initial findings, conclusions and recommendations made at the facility where the study was performed based upon the imaging and clinical condition at that time. Comparison with the prior report and clinical history is necessary. The provided images may or may not represent the [place] source data set and thus may contain changes that may lower the accuracy of this second-opinion interpretation. Dictated by: Rosalia Sevilla MD The radiology attending physician has personally reviewed this study, and had reviewed and/or edited this written report and agrees with it. Electronically signed by: Carmelo Calzada M.D. Narrative 02/15/2025 11:33 AM CDT EXAMINATION: RADIOLOGY CONSULTATION ON OUTSIDE IMAGING STUDY STUDY INITIALLY PERFORMED: 11/01/[address] [facility]. TYPE OF STUDY: Multiple CT images of [...] Outside Image Sharing Service DATE OF CONSULTATION: 02/15/2025 9:14 AM HISTORY: Pulmonary mycobacterial infection COMPARISON: Multiple priors, most recently 04/19/2024 FINDINGS: Multiple pulmonary bilateral pulmonary nodules and bronchoceles. For reference, right upper lobe pulmonary nodule measures 4.4 cm (series 4 image 20). Additional right upper lobe pulmonary lesion measures 1 cm, slightly enlarged from prior report measured 0.8 cm and is likely a bronchocele (series 4 image 32). Unchanged left apical pulmonary nodule measures 3 mm (series 4 image 16). Additional left upper lobe pulmonary nodule measures 6 cm, unchanged (series 4 image 24). Increased size of left upper lobe pulmonary lesion measuring 8 mm (series 4 image 36), which is likely a bronchocele. Additional left upper lobe bronchocele seen on series 4 image 31 is unchanged. Emphysematous changes throughout the lungs. Unchanged right middle lobe chronic atelectasis/scarring and right basilar lower lobe scarring. No pneumothorax or pleural effusion. Heart is mildly enlarged multivessel coronary artery atherosclerosis. No pleural effusion. No lymphadenopathy. The esophagus is normal. Limited evaluation of the upper abdomen demonstrates no acute CT process. Unchanged lobulated paravertebral lesions adjacent to the T9 and T10 vertebral bodies may reflect regenerative tumors such as schwannomas or neurofibromas and are similar. S-shaped scoliosis of the spine with unchanged severe T11 compression deformity. No aggressive osseous lesion. Asymmetric left breast tissue. Left shoulder lower arthroplasty. Procedure Note Carmelo Calzada MD - 02/15/2025 EXAMINATION: RADIOLOGY CONSULTATION ON OUTSIDE IMAGING STUDY STUDY INITIALLY PERFORMED: 11/01/[address] [facility]. TYPE OF STUDY: Multiple CT images of [...] Outside Image Sharing Service DATE OF CONSULTATION: 02/15/2025 9:14 AM HISTORY: Pulmonary mycobacterial infection COMPARISON: Multiple priors, most recently 04/19/2024 FINDINGS: Multiple pulmonary bilateral pulmonary nodules and bronchoceles. For reference, right upper lobe pulmonary nodule measures 4.4 cm (series 4 image 20). Additional right upper lobe pulmonary lesion measures 1 cm, slightly enlarged from prior report measured 0.8 cm and is likely a bronchocele (series 4 image 32). Unchanged left apical pulmonary nodule measures 3 mm (series 4 image 16). Additional left upper lobe pulmonary nodule measures 6 cm, unchanged (series 4 image 24). Increased size of left upper lobe pulmonary lesion measuring 8 mm (series 4 image 36), which is likely a bronchocele. Additional left upper lobe bronchocele seen on series 4 image 31 is unchanged. Emphysematous changes throughout the lungs. Unchanged right middle lobe chronic atelectasis/scarring and right basilar lower lobe scarring. No pneumothorax or pleural effusion. Heart is mildly enlarged multivessel coronary artery atherosclerosis. No pleural effusion. No lymphadenopathy. The esophagus is normal. Limited evaluation of the upper abdomen demonstrates no acute CT process. Unchanged lobulated paravertebral lesions adjacent to the T9 and T10 vertebral bodies may reflect regenerative tumors such as schwannomas or neurofibromas and are similar. S-shaped scoliosis of the spine with unchanged severe T11 compression deformity. No aggressive osseous lesion. Asymmetric left breast tissue. Left shoulder lower arthroplasty. IMPRESSION: 1. Multiple pulmonary nodules are likely bronchoceles, with a few slightly increased in size. Recommend attention on follow up with CT chest in 6 months. 2. Asymmetric left breast tissue. Recommend correlation with breast imaging if not recently performed. The findings, conclusions and recommendations within this report do not replace the initial findings, conclusions and recommendations made at the facility where the study was performed based upon the imaging and clinical condition at that time. Comparison with the prior report and clinical history is necessary. The provided images may or may not represent the [place] source data set and thus may contain changes that may lower the accuracy of this second-opinion interpretation. Dictated by: Rosalia Sevilla MD The radiology attending physician has personally reviewed this study, and had reviewed and/or edited this written report and agrees with it. Electronically signed by: Carmelo Calzada M.D. Racheal Dhaliwal NP IMG CT PROCEDURES Sugey l Result from Last 3 [place] [address] [place] [address] MEDICARE [facility] [place] [address] Care Teams Hospital Security Officer Relationship Specialty Start Date End Date Familia Rosario MD [address] [place] [phone] PCP - General Family Medicine 02/14/18
--- OUTSIDE RECORDS SUMMARY | 2025-04-26 16:57 | XMS_ITS | Encounter Summary ---
Author Organization [facility] Address [address] [place] [address] Phone Care Team Providers Care Central Supply Clerk Name Role Phone Familia Rosario MD Primary Care Provider [phone] Encounter Details Date Type Department Care Team (Late st Contact Info) Description 07/19/2022 Orders Only [facility] Scanning, Provider Social History Tobacco Use Types Packs/Day Years Used Date Smoking Tobacco: Never Assessed Comments Unknown Sex and Gender Information Value Date Recorded Sex Assigned at Not on file Legal Sex Female 3:37 PM CDT Gender Identity Not on file Sexual Orientation Not on file documented as of this encounter Plan of Treatment Not on file documented as of this encounter Procedures Procedure Name Priority Date/Time Associated Diagnosis Comments SCAN - LABS 07/19/2022 documented in this encounter Results * SCAN - LABS (07/19/2022) us Provider Scanning Final Result documented in this encounter Visit Diagnoses Not on filedocumented in this encounter Care Teams Central Supply Clerk Relationship Specialty Start Date End Date Familia Rosario MD [address] [place] [id number] PCP - General Family Medicine 02/14/18 documented as of this encounter
--- OUTSIDE RECORDS SUMMARY | 2025-04-26 16:57 | XMS_ITS | Encounter Summary ---
Author Organization [facility] Address [address] [place] [address] Phone Care Team Providers Care Mobility Scooter Repairer Name Role Phone Familia Rosario MD Primary Care Provider [phone] Encounter Details Date Type Department Care Team [...] on filedocumented in this encounter Care Teams Mobility Scooter Repairer Relationship Specialty Start Date End Date Familia Rosario MD [address] [place] [phone] PCP - General Family Medicine 02/14/18 documented as of this encounter
--- OUTSIDE RECORDS SUMMARY | 2025-04-26 16:57 | XMS_ITS | Encounter Summary ---
Author Organization [facility] Address [address] [place] [address] Phone Care Team Providers Care Cloth Painter Name Role Phone Familia Rosario MD Primary Care Provider [phone] Encounter Details Date Type Department Care Team (Late st Contact Info) Description 11/13/2024 Orders Only [facility] Scanning, [...] Date/Time Associated Diagnosis Comments SCAN - LABS 11/13/2024 documented in this encounter Results * SCAN - LABS (11/13/2024) us Provider Scanning Final Result documented in this encounter Visit Diagnoses Not on filedocumented in this encounter Care Teams Cloth Painter Relationship Specialty Start Date End Date Familia Rosario MD [address] [place] [phone] PCP - General Family Medicine 02/14/18 documented as of this encounter
--- OUTSIDE RECORDS SUMMARY | 2025-04-26 16:57 | XMS_ITS | Encounter Summary ---
Author Organization [facility] Address [address] [place] [address] Phone Care Team Providers Care Olive Grader Name Role Phone Familia Rosario MD Primary Care Provider [phone] Encounter Details Date Type Department Care Team [...] on filedocumented in this encounter Care Teams Olive Grader Relationship Specialty Start Date End Date Familia Rosario MD [address] [place] [phone] PCP - General Family Medicine 02/14/18 documented as of this encounter
== END 2025-04-26 16:23 | disposition home or self-care (01) ==
PROVIDERS: Student in an Organized Health Care Education/Training Program; Emergency Provider Family Medicine; PCP Family Medicine
DX: I48.0 Paroxysmal atrial fibrillation (principal); J44.9 Chronic obstructive pulmonary disease, unspecified; I50.9 Heart failure, unspecified; I11.0 Hypertensive heart disease with heart failure; G47.33 Obstructive sleep apnea (adult) (pediatric); M81.0 Age-related osteoporosis without current pathological fracture; K21.9 Gastro-esophageal reflux disease without esophagitis; F41.8 Other specified anxiety disorders; Z96.612 Presence of left artificial shoulder joint; Z87.891 Personal history of nicotine dependence; Z90.710 Acquired absence of both cervix and uterus; Z79.899 Other long term (current) drug therapy; R94.31 Abnormal electrocardiogram [ECG] [EKG]
CPT/HCPCS: 36415; 71046; 80053; 83690; 84484; 85025; 85610; 85730; 93005; 99284

== ENCOUNTER 2025-06-03 17:37 | Emergency (ER) | payer MEDICARE, OTHER, SELFPAY ==
--- NOTE | ~2025-06-03 | CT_ITS ---
EXAMINATION: CT cervical spine wo con DATE: 06/03/2025 18:56 INDICATION: Neck pain after fall TECHNIQUE: Computed tomography (CT) of the cervical spine was performed without intravenous contrast. The dose-length product was 275 mGy-cm. Automated exposure control and iterative reconstruction technique were employed. COMPARISON: None FINDINGS: There is severe emphysema. No significant paraspinal soft tissue abnormality. There is carotid atherosclerosis. There is moderate cervical spondylosis. There is disc narrowing at multiple levels. There is multilevel uncinate and facet hypertrophy. Mild dextrocurvature of the cervical spine. C raniovertebral junction is normal. There is degenerative anterolisthesis at C3- 4. Spinous processes are normal. No evidence for perched facet. IMPRESSION: 1. Moderate cervical spondylosis. Reviewed, dictated and finalized at location O. STAND ATTENDANT
--- NOTE | ~2025-06-03 | XR_ITS ---
XR chest 2V 06/03/2025 19:11 Indication: Status post fall. Dizziness. Procedure: 2 view chest Comparison: Comparison to multiple prior studies sequentially, with oldest reviewed study dated 04/26/2025. Findings: Cardiomegaly. There is ectasia of the thoracic aorta. Bibasilar infiltrates most likely represent atelectasis/scarring without significant change. There is a chronic burst fracture of the lower thoracic vertebra. No acute focal pneumonia, edema, effusion or pneumothorax. There is left shoulder arthroplasty. Impression: 1: Chronic bibasilar atelectasis/scarring. Reviewed, dictated and finalized at location O. TILE SETTER Impression: 1: Chronic bibasilar atelectasis/scarring.
--- NOTE | ~2025-06-03 | CT_ITS ---
EXAMINATION: CT thoracic spine wo con DATE: 06/03/2025 19:02 INDICATION: Back pain after fall TECHNIQUE: Computed tomography (CT) of the thoracic spine was performed without intravenous contrast. The dose-length product was 790.84 mGy-cm. COMPARISON: MRI dated 10/13/2021 FINDINGS: There is a chronic T11 burst fracture. There is moderate-severe thoracic spondylosis. There is scoliosis.2 there are severe emphysema. There is scarring/atelectasis in the lower lobes. No acute fracture or traumatic malalignment. Cardiomegaly. There is diffuse atherosclerosis of the aorta. IMPRESSION: 1. Severe thoracic spondylosis with chronic T11 burst fracture. Reviewed, dictated and finalized at location O. RAL MAINTENANCE ENGINEER
--- NOTE | ~2025-06-03 | CT_ITS ---
EXAMINATION: CT brain wo con DATE: 06/03/2025 18:52 INDICATION: Status post fall. Head injury. TECHNIQUE: Computed tomography (CT) of the head was performed without intravenous contrast. The dose-length product was 605.33 mGy-cm. Automated exposure control and iterative reconstruction technique were employed. COMPARISON: None FINDINGS: Generalized atrophy. There is intracranial atherosclerosis. There are scattered mild periventricular and subcortical white matter changes, most likely related to small vessel ischemic disease (microangiopathy). No ventriculomegaly or midline shift. Basilar cisterns are patent. Paranasal sinuses and mastoids are pneumatized. No depressed skull fractures. IMPRESSION: 1. No acute intracranial abnormality. Reviewed, dictated and finalized at location O. COORDINATOR
[2025-06-03 17:48] VITALS: BP 142/58; PULSE 69; RESP 16; TEMP 36.3; O2SAT 91
--- NOTE | 2025-06-03 17:55 | PC.NURSE ---
c-spine pain on palpation. C-collar applied in triage.
--- NOTE | 2025-06-03 18:28 | ED.FALL ---
HPI - Fall General Chief Complaint: Fall <NYLA Gonzales Last Filed: 06/05/25 09:08> Stated Complaint: fall, dizzy, hit head, down 3.5 hrs <NYLA Gonzales Last Filed: 06/05/25 09:08> Time Seen by Provider: 06/03/25 18:29 <NYLA Gonzales Last Filed: 06/05/25 09:08> Focused HPI: Patient is an 80 y/o female who presents the ED with report of a fall. Patient reports she was standing in her kitchen sink when she all of a sudden fell backwards. States she did not trip on anything. Typically uses a walker with ambulation and states this was nearby. She did hit her head. Denied LOC. States she remembers the fall. Denies feeling dizzy prior to the fall, but has been feeling dizzy since then with nausea, headache, neck pain, upper back pain. Denies numbness, weakness. Patient reports she was recently admitted here for complications of AFib. She sees Dr. Perales. Was started on Eliquis at that time. Missed her appointment with Dr. Perales last week due to being ill with N/V/D. States she has been out of her Eliquis for the past 5 days and does not have any re-fills at the pharmacy. GENERAL: Elderly, in no acute distress. HEAD: Normocephalic, atraumatic. NECK: C-collar in place. Mild diffuse tenderness throughout lower cervical region/upper thoracic midline spine CHEST: Clear to auscultation. ?No respiratory distress. HEART: Regular rate and rhythm.? NEURO: ?Alert and oriented x3. Patient screened in triage and initial orders placed.? ?Additional care and disposition to be based upon?diagnostic testing and treatment. <NYLA Gonzales Last Filed: 06/05/25 09:08> Source: patient <NYLA Gonzales Last Filed: 06/05/25 09:08> Mode of arrival: ambulatory <NYLA Gonzales Last Filed: 06/05/25 09:08> Limitations: no limitations <Mariela Zamora PA-C - Last Filed: 06/05/25 09:08> History of Present Illness HPI Narrative: Agree with HPI <Ananda Last DO - Last Filed: 06/06/25 12:10> Related Data Home Medications: Home Medications ?Medication ?Instructions ?Recorded ?Confirmed ?Last Taken ?Type calcium 600 mg (as carbonate)-vit 1 tablet PO DAILY 07/12/19 04/30/25 02/14/22 History D3 5 mcg (200 unit)-minerals tablet (Calcium 600 + Minerals) cholecalciferol (vitamin D3) 1 cap QAM 01/29/22 04/30/25 02/14/22 History melatonin 1 mg tablet 1 mg PO QHS 02/05/22 04/30/25 02/17/22 History magnesium carbonate 250 mg capsule 250 mg PO .qd 08/11/23 04/30/25 Unknown History <Mariela Zamora PA-C - Last Filed: 06/05/25 09:08> Allergies/Adverse Reactions: Allergies Allergy/AdvReac Type Severity Reaction Status Date / Time codeine Allergy Unknown Vomiting Verified 06/03/25 17:54 losartan Allergy Unknown Cough Verified 06/03/25 17:54 timolol Allergy Unknown SOB Verified 06/03/25 17:54 amoxicillin (From Augmentin) AdvReac Nausea and Verified 06/03/25 17:54 Vomiting clavulanic acid (From AdvReac Nausea and Verified 06/03/25 17:54 Augmentin) Vomiting <NYLA Gonzales Last Filed: 06/05/25 09:08> Review of Systems Review of Systems: All systems reviewed & are unremarkable except as noted in HPI and below <Ananda Last DO - Last Filed: 06/06/25 12:10> PMFSH Past Medical History Medical History: Medical History PVT (paroxysmal ventricular tachycardia) PAT (paroxysmal atrial tachycardia) CHF (congestive heart failure) Depression with anxiety Osteoporosis TEMO (obstructive sleep apnea) GERD (gastroesophageal reflux disease) Asthma Hypertension Chronic obstructive pulmonary disease <NYLA Gonzales Last Filed: 06/05/25 09:08> Surgical History Surgical History: Surgical History History of reverse total replacement of left shoulder joint (~02/18/22) Status post reverse total arthroplasty of left shoulder History of inguinal hernia repair H/O hernia repair (~2020) 11/14/20 1. Strangulated right femoral hernia repair 2. Small-bowel (ileum) resection with [id number]-[id number] anastomosis History of hysterectomy (~2000) <NYLA Gonzales Last Filed: 06/05/25 09:08> Family History Family History: Family History Mother Family history of malignant neoplasm of breast in first degree relative Unknown Hypertension Other Family history of arthritis Family history of malignant neoplasm of thyroid <NYLA Gonzales Last Filed: 06/05/25 09:08> Social History Social History: Social History Social History: The patient is and lives home alone. She has 2 children. She stated she does not have a durable power energy attorney for healthcare. 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 She is a former smoker. She does not use any marijuana or illicit drugs. She does not use any alcohol. Code status full code Smoking packs per day: 1 Smoking cigarettes per day: 20.0 Years smoked: 50 Smoking pack-years: 50.00 Smoking status: Former smoker Second hand tobacco smoke exposure: No Smoking end date: 11/11/20 Alcohol intake: never Substance use: never Substance use type: does not use Lack of Transportation: No Lack of Food: Never True Current Housing: I Have Housing Concerned About Future Housing: No Difficulty Paying Gas/Electric Bills: No Difficulty Paying for Meds: No Currently Unemployed: No Education: High School Diploma/GED Difficulty w/ Childcare or Family Care: No Living arrangements: alone Gender identity (if verbalized by the patient): Female Spiritual care concerns: No <NYLA Gonzales Last Filed: 06/05/25 09:08> Exam Narrative: APPEARANCE: No acute distress, nontoxic, resting in bed EYES: EOMI. PERRL. No nystagmus. HEENT: Normocephalic, atraumatic, OMM RESPIRATORY: No respiratory distress Clear to auscultation bilaterally with no rhonchi wheezing or rales. CARDIOVASCULAR: Regular rate and rhythm without murmurs rubs or gallops. ABDOMINAL: Soft, nontender, nondistended, no rebound or guarding MUSCULOSKELETAl: Moves all extremities. No clubbing, cyanosis or edema. NEURO: Awake and alert. Following commands, speech normal, no focal deficits SKIN:: Warm, dry. No rashes lesions or abrasions PSYCHIATRIC: Normal affect/mood, <Ananda Last DO - Last Filed: 06/06/25 12:10> Course Vital Signs Vital signs: Vital Signs Temperature 97.3 F L 06/03/25 17:48 Pulse Rate 69 06/03/25 17:48 Respiratory Rate 16 06/03/25 17:48 Blood Pressure 142/58 H 06/03/25 17:48 Pulse Oximetry 91 06/03/25 17:48 Oxygen Delivery Room Air 06/03/25 17:48 Temperature 98.2 F 06/03/25 20:35 Pulse Rate 88 06/03/25 22:02 Respiratory Rate 12 06/03/25 22:02 Blood Pressure 144/87 H 06/03/25 22:02 Pulse Oximetry 94 06/03/25 22:02 Oxygen Delivery Room Air 06/03/25 20:35 <ARNULFO GonzalesC - Last Filed: 06/05/25 09:08> Vital Signs Temperature 97.3 F L 06/03/25 17:48 Pulse Rate 69 06/03/25 17:48 Respiratory Rate 16 06/03/25 17:48 Blood Pressure 142/58 H 06/03/25 17:48 Pulse Oximetry 91 06/03/25 17:48 Oxygen Delivery Room Air 06/03/25 17:48 Temperature 98.2 F 06/03/25 20:35 Pulse Rate 88 06/03/25 22:02 Respiratory Rate 12 06/03/25 22:02 Blood Pressure 144/87 H 06/03/25 22:02 Pulse Oximetry 94 06/03/25 22:02 Oxygen Delivery Room Air 06/03/25 20:35 <Ananda Last DO - Last Filed: 06/06/25 12:10> MDM MDM Narrative Medical decision making narrative: MSE by ENEIDA in triage. <Mariela Zamora PA-C - Last Filed: 06/05/25 09:08> MSE by ENEIDA in triage. 80-year-old female Presenting for fall and head injury. On initial evaluation patient was in no acute distress afebrile, hemodynamic stable. Differentials include but are not limited to: Vertigo, intracranial hemorrhage, closed head injury, AFib, BPPV Notable exam findings: No cervical tenderness to palpation, heart and lungs clear, no reproducible nystagmus I personally reviewed the patient's lab result. Notable lab findings: CBC and CMP without significant abnormalities. I personally reviewed the patient's images and interpret as follows: Chest x-ray showed no acute process CT head, C-spine, T-spine showed no acute process. I personally reviewed the patient's EKGs: Significant artifact, normal sinus rhythm, normal axis, no acute ST or T-wave changes Repeat EKG: Normal sinus rhythm with occasional PVC, normal axis, normal intervals, no acute ST or T-wave changes Patient's C-spine was cleared. Did attempt to ambulate her but she became significantly dizzy with sitting up to the bed so she was given some meclizine. She was trialed again was able to ambulate through the department at her baseline with minimal difficulty. Patient was deemed appropriate for discharge at this time. She was given prescriptions for meclizine and a refill of her Eliquis. She was advised to continue follow-up with cardiology as scheduled and to follow-up with her PCP in the next week for re-evaluation. Patient was agreeable to this plan. Given strict return precautions. <Ananda Last DO - Last Filed: 06/06/25 12:10> Differential Diagnosis Differential Diagnosis: dizziness, vertigo, intracranial bleeding, afib <NYLA Gonzales Last Filed: 06/05/25 09:08> Lab Data Result diagrams: 06/03/25 19:47 06/03/25 19:47 <NYLA Gonzales Last Filed: 06/05/25 09:08> Labs: Lab Results 06/03/25 Range/Units 19:47 WBC 13.0 H (4.5-10.0) K/mm3 RBC 4.03 L (4.2-5.4) M/mm3 Hgb 11.4 L (12.0-15.0) g/dL Hct 36.4 L (37.0-47.0) % MCV 90.3 (80-100) fl MCH 28.3 (26-34) pg MCHC 31.3 L (32-36) g/dl RDW 13.7 (11.5-14.5) % Plt Count 323 (150-375) k/mm3 MPV 9.1 (7.4-10.4) fl Immature Gran % (Auto) 0.5 (0-0.5) % Neut % (Auto) 87.8 H (45.5-73.1) % Lymph % (Auto) 5.8 L (18.3-44.2) % [place] % (Auto) 5.5 (2.6-8.5) % Eos % (Auto) 0.2 (0-4.4) % Baso % (Auto) 0.2 (0.2-1.2) % Lymph # (Auto) 0.76 L (0.9-3.2) K/mm3 [place] # (Auto) 0.7 H (0.1-0.6) K/mm3 Eos # (Auto) 0.0 (0-0.3) K/mm3 Baso # (Auto) 0.0 (0.0-0.1) K/mm3 Abs Immat Gran (auto) 0.07 H (0.00-0.031) K/mm3 Absolute Neuts (auto) 11.4 H (1.3-6.7) K/mm3 Absolute Nucleated RBC 0.000 (0.0-0.012) K/mm3 Nucleated RBC % 0.0 (0.0-0.2) % PT 14.0 (11.1-14.7) Seconds INR 1.1 APTT 28.2 (22.3-36.8) Seconds Sodium 132 L (137-145) mmol/L Potassium 3.9 (3.4-5.0) mmol/L Chloride 95 L (98-107) mmol/L Carbon Dioxide 31 H (22-30) mmol/L Anion Gap 6 (4-12) mmol/L BUN 21 H (7-17) mg/dL Creatinine 1.23 H (0.7-1.0) mg/dL Estim Creat Clear Calc 28 ml/min Estimated GFR 42 L (59 - ) Glucose 126 H (65-110) mg/dL Calcium 9.3 (8.4-10.2) mg/dL Magnesium 1.7 (1.6-2.3) mg/dL Total Bilirubin 0.5 (0.2-1.3) mg/dL AST 36 (14-36) U/L ALT 20 (6-35) U/L Alkaline Phosphatase 73 (38-126) U/L Troponin I 0.023 (0.000-0.034) ng/mL Total Protein 7.1 (6.3-8.2) g/dL Albumin 4.0 (3.5-5.1) g/dL <Mariela Zamora PA-C - Last Filed: 06/05/25 09:08> Lab Results 06/03/25 Range/Units 19:47 WBC 13.0 H (4.5-10.0) K/mm3 RBC 4.03 L (4.2-5.4) M/mm3 Hgb 11.4 L (12.0-15.0) g/dL Hct 36.4 L (37.0-47.0) % MCV 90.3 (80-100) fl MCH 28.3 (26-34) pg MCHC 31.3 L (32-36) g/dl RDW 13.7 (11.5-14.5) % Plt Count 323 (150-375) k/mm3 MPV 9.1 (7.4-10.4) fl Immature Gran % (Auto) 0.5 (0-0.5) % Neut % (Auto) 87.8 H (45.5-73.1) % Lymph % (Auto) 5.8 L (18.3-44.2) % [place] % (Auto) 5.5 (2.6-8.5) % Eos % (Auto) 0.2 (0-4.4) % Baso % (Auto) 0.2 (0.2-1.2) % Lymph # (Auto) 0.76 L (0.9-3.2) K/mm3 [place] # (Auto) 0.7 H (0.1-0.6) K/mm3 Eos # (Auto) 0.0 (0-0.3) K/mm3 Baso # (Auto) 0.0 (0.0-0.1) K/mm3 Abs Immat Gran (auto) 0.07 H (0.00-0.031) K/mm3 Absolute Neuts (auto) 11.4 H (1.3-6.7) K/mm3 Absolute Nucleated RBC 0.000 (0.0-0.012) K/mm3 Nucleated RBC % 0.0 (0.0-0.2) % PT 14.0 (11.1-14.7) Seconds INR 1.1 APTT 28.2 (22.3-36.8) Seconds Sodium 132 L (137-145) mmol/L Potassium 3.9 (3.4-5.0) mmol/L Chloride 95 L (98-107) mmol/L Carbon Dioxide 31 H (22-30) mmol/L Anion Gap 6 (4-12) mmol/L BUN 21 H (7-17) mg/dL Creatinine 1.23 H (0.7-1.0) mg/dL Estim Creat Clear Calc 28 ml/min Estimated GFR 42 L (59 - ) Glucose 126 H (65-110) mg/dL Calcium 9.3 (8.4-10.2) mg/dL Magnesium 1.7 (1.6-2.3) mg/dL Total Bilirubin 0.5 (0.2-1.3) mg/dL AST 36 (14-36) U/L ALT 20 (6-35) U/L Alkaline Phosphatase 73 (38-126) U/L Troponin I 0.023 (0.000-0.034) ng/mL Total Protein 7.1 (6.3-8.2) g/dL Albumin 4.0 (3.5-5.1) g/dL <Ananda Last, DO - Last Filed: 06/06/25 12:10> Imaging Data Radiologist's impression: ITS Impressions Head CT 06/03/25 18:59 IMPRESSION: 1. No acute intracranial abnormality. Cervical Spine CT 06/03/25 19:02 IMPRESSION: 1. Moderate cervical spondylosis. Thoracic Spine CT 06/03/25 19:07 IMPRESSION: 1. Severe thoracic spondylosis with chronic T11 burst fracture. Chest X-Ray 06/03/25 19:12 Impression: 1: Chronic bibasilar atelectasis/scarring. <NYLA Gonzales Last Filed: 06/05/25 09:08> ITS Impressions Head CT 06/03/25 18:59 IMPRESSION: 1. No acute intracranial abnormality. Cervical Spine CT 06/03/25 19:02 IMPRESSION: 1. Moderate cervical spondylosis. Thoracic Spine CT 06/03/25 19:07 IMPRESSION: 1. Severe thoracic spondylosis with chronic T11 burst fracture. Chest X-Ray 06/03/25 19:12 Impression: 1: Chronic bibasilar atelectasis/scarring. <Ananda Last DO - Last Filed: 06/06/25 12:10> Discharge Plan Discharge Clinical Impression: Fall, CHI (closed head injury), Vertigo <NYLA Gonzales Last Filed: 06/05/25 09:08> Patient Disposition: Home <NYLA Gonzales Last Filed: 06/05/25 09:08> Condition: Stable <NYLA Gonzales Last Filed: 06/05/25 09:08> Instructions: Antibiotic Form, Vertigo (ED), Head Injury (ED) <NYLA Gonzales Last Filed: 06/05/25 09:08> Additional Instructions: Workup was reassuring. You were given a refill of your eliquis. You were given a prescription for meclizine, take this as prescribed. Follow up with your PCP in the next week for reevaluation. Return to the ED for new or worsening symptoms. <NYLA Gonzales Last Filed: 06/05/25 09:08> Patient Language: Honduran <NYLA Gonzales Last Filed: 06/05/25 09:08> Prescriptions: New meclizine 25 mg tablet 25 mg PO TID PRN (Reason: dizziness) Qty: 30 0RF No Action melatonin 1 mg tablet 1 mg PO QHS Calcium 600 + Minerals 600 mg calcium- 200 unit tablet 1 tablet PO DAILY Patient Comments: QAM magnesium carbonate 250 mg capsule 250 mg PO .qd cholecalciferol (vitamin D3) 1 cap QAM diltiazem HCl [Tiadylt ER] 120 mg capsule,extended release 24hr See Rx Instructions .ROUTE .COMPLEX Qty: 90 2RF Dose Instruction: TAKE 1 CAPSULE BY MOUTH EVERY DAY Rx Instructions: TAKE 1 CAPSULE BY MOUTH EVERY DAY celecoxib 50 mg capsule 50 mg PO BID Qty: 60 1RF lisinopril-hydrochlorothiazide 20-25 mg tablet See Rx Instructions .ROUTE .COMPLEX Qty: 90 2RF Dose Instruction: TAKE 1 TABLET BY MOUTH EVERY DAY Rx Instructions: TAKE 1 TABLET BY MOUTH EVERY DAY albuterol sulfate 2.5 mg /3 mL (0.083 %) solution for nebulization 2.5 mg inhalation Q4-6H PRN (Reason: shortness of breath or wheezing) Qty: 360 2RF albuterol sulfate 90 mcg/actuation HFA aerosol inhaler 1 inh inhalation Q4H PRN (Reason: shortness of breath or wheezing) Qty: 8.5 0RF amiodarone 200 mg tablet 200 mg PO BID Qty: 180 0RF Trelegy Ellipta 200-62.5-25 mcg blister with device 1 inh inhalation Q24H 90 Days Qty: 180 1RF Rx Instructions: rinse and spit Eliquis 5 mg tablet 5 mg PO BID Qty: 180 2RF citalopram 10 mg tablet 10 mg PO DAILY Qty: 90 1RF <Mariela Zamora PA-C - Last Filed: 06/05/25 09:08> Follow-up/Referrals: Familia Rosario MD [Primary Care Provider, Family Practice] <Mariela Zamora PA-C - Last Filed: 06/05/25 09:08>
--- NOTE | 2025-06-03 18:38 | ECG_ITS ---
Test Date: 2025-06-03 19:22:00 Measurements Intervals [place] Rate: 72 P: 0 VA: 0 QRS: 17 QRSD: 116 T: 72 QT: 407 QTc: 448 Interpretive Statements SINUS RHYTHM WITH ATRIAL AND VENTRICULAR PREMATURE COMPLEXES INCOMPLETE RIGHT BUNDLE BRANCH BLOCK MINIMAL Q WAVES- ANTEROLATERAL LEADS BASELINE ARTIFACT- I, II, III, AVR, AVL, AVF, V1-V6 ABNORMAL ECG Compared to ECG 04/26/2025 12:57:38 ATRIAL FIBRILLATION NO LONGER PRESENT Electronically Signed On 06-03-2025 20:16:16 AUTOCAD by Edwin Perales D.O.
--- NOTE | 2025-06-03 19:24 | ECG_ITS ---
Test Date: 2025-06-03 19:24:33 Measurements Intervals [place] Rate: 73 P: 73 DE: 166 QRS: 26 QRSD: 109 T: 70 QT: 441 QTc: 488 Interpretive Statements SINUS RHYTHM WITH OCCASIONAL VENTRICULAR PREMATURE COMPLEXES INCOMPLETE RIGHT BUNDLE BRANCH BLOCK MINIMAL Q WAVES- ANTEROLATERAL LEADS BASELINE ARTIFACT- I, II, III, AVR, AVL, AVF, V1-V6 BORDERLINE ECG Compared to ECG 06/03/2025 19:22:00 NO SIGNIFICANT CHANGE Electronically Signed On 06-04-2025 07:17:16 MEDICAL EDUCATOR by Edwin Perales D.O.
[2025-06-03 19:52] LABS: Hematocrit 36.4 % (37.0-47.0); Hemoglobin 11.4 g/dL (12.0-15.0); Immature Granulocyte Percent A 0.5 % (0-0.5); Lymphocytes Absolute Auto 0.76 K/mm3 (0.9-3.2); Mean Corpuscular HGB Conc 31.3 g/dl (32-36); Mean Corpuscular Hemoglobin 28.3 pg (26-34); Mean Corpuscular Volume 90.3 fl (80-100); Nucleated Red Blood Cells Absolute Auto 0.000 K/mm3 (0.0-0.012); Nucleated Red Blood Cells Perc 0.0 % (0.0-0.2); Platelet Count Result 323 k/mm3 (150-375); Red Blood Count 4.03 M/mm3 (4.2-5.4); White Blood Count 13.0 K/mm3 (4.5-10.0)
[2025-06-03 20:03] LABS: INR 1.1; Prothrombin Time 14.0 Seconds (11.1-14.7)
[2025-06-03 20:04] LABS: Partial Thromboplastin Time 28.2 Seconds (22.3-36.8)
[2025-06-03 20:12] LABS: Alanine Aminotransferase 20 U/L (6-35); Albumin Level 4.0 g/dL (3.5-5.1); Alkaline Phosphatase 73 U/L (38-126); Anion Gap 6 mmol/L (4-12); Aspartate Amino Transferase 36 U/L (14-36); Bilirubin,Total 0.5 mg/dL (0.2-1.3); Blood Urea Nitrogen 21 mg/dL (7-17); Calcium 9.3 mg/dL (8.4-10.2); Carbon Dioxide 31 mmol/L (22-30); Chloride 95 mmol/L (98-107); Estimated CRCL calculation 28 ml/min; Estimated Glomerular Filt Rate 42; Glucose 126 mg/dL (65-110); Magnesium 1.7 mg/dL (1.6-2.3); Potassium 3.9 mmol/L (3.4-5.0); Sodium 132 mmol/L (137-145); Total Protein 7.1 g/dL (6.3-8.2)
[2025-06-03 20:24] LABS: Troponin I 0.023 ng/mL (0.000-0.034)
[2025-06-03 20:35] VITALS: BP 133/65; PULSE 70; RESP 16; TEMP 36.8; O2SAT 100
--- OUTSIDE RECORDS SUMMARY | 2025-06-03 20:59 | XMS_ITS | Encounter Summary ---
Author Organization [facility] Address [address] [place] [address] Phone Care Team Providers Care Armhole Raiser Lockstitch Name Role Phone Familia Rosario MD Primary Care Provider [phone] Encounter Details Date Type Department Care Team [...] on filedocumented in this encounter Care Teams Armhole Raiser Lockstitch Relationship Specialty Start Date End Date Familia Rosario MD [address] [place] [id number] PCP - General Family Medicine 02/14/18 documented as of this encounter
--- OUTSIDE RECORDS SUMMARY | 2025-06-03 20:59 | XMS_ITS | Encounter Summary ---
Author Organization [facility] Address [address] [place] [address] Phone Care Team Providers Care Pediatric Speech Therapist Name Role Phone Familia Rosario MD Primary Care Provider [phone] Encounter Details Date Type Department Care Team [...] on filedocumented in this encounter Care Teams Pediatric Speech Therapist Relationship Specialty Start Date End Date Familia Rosario MD [address] [place] [phone] PCP - General Family Medicine 02/14/18 documented as of this encounter
--- OUTSIDE RECORDS SUMMARY | 2025-06-03 20:59 | XMS_ITS | Clinical Summary ---
Author Organization [facility] [address] Address [address] [place] [address] Care Team Providers Care [place] Guide Name Role Phone Familia Rosario MD Primary Care Provider [phone] Allergies Active Allergy Reactions Criticality Noted Date [...] 03/01/2019 Pneumococcal vaccine 65+ Completed 11/22/2023, 07/[address] [facility] [place] [address] [facility] MEDIC[address] [facility] Care Teams [place] Guide Relationship Specialty Start Date End Date Familia Rosario MD [address] [place] [phone] PCP - General Family Medicine 02/14/18
--- OUTSIDE RECORDS SUMMARY | 2025-06-03 20:59 | XMS_ITS | Encounter Summary ---
Author Organization [facility] Address [address] [place] [address] Phone Care Team Providers Care Wireline Field Operator Name Role Phone Familia Rosario MD Primary Care Provider [phone] Encounter Details Date Type Department Care Team [...] on filedocumented in this encounter Care Teams Wireline Field Operator Relationship Specialty Start Date End Date Familia Rosario MD [address] [place] [phone] PCP - General Family Medicine 02/14/18 documented as of this encounter
--- OUTSIDE RECORDS SUMMARY | 2025-06-03 20:59 | XMS_ITS | Encounter Summary ---
Author Organization [facility] Address [address] [place] [address] Phone Care Team Providers Care Physician Extender Name Role Phone Familia Rosario MD Primary Care Provider [phone] Encounter Details Date Type Department Care Team [...] on filedocumented in this encounter Care Teams Physician Extender Relationship Specialty Start Date End Date Familia Rosario MD [address] [place] [id number] PCP - General Family Medicine 02/14/18 documented as of this encounter
[2025-06-03] MEDS: APIXABAN 5 MG TABLET PO (21:20)
[2025-06-03] MEDS: MECLIZINE HCL 25 MG TABLET PO (21:20)
[2025-06-03 22:02] VITALS: BP 144/87; PULSE 88; RESP 12; O2SAT 94
== END 2025-06-03 22:03 | disposition home or self-care (01) ==
PROVIDERS: Physician Assistant; Emergency Provider Student in an Organized Health Care Education/Training Program; PCP Family Medicine
DX: S09.90XA Unspecified injury of head, initial encounter (principal); R42 Dizziness and giddiness; I48.91 Unspecified atrial fibrillation; I50.9 Heart failure, unspecified; I11.0 Hypertensive heart disease with heart failure; J44.9 Chronic obstructive pulmonary disease, unspecified; M81.0 Age-related osteoporosis without current pathological fracture; K21.9 Gastro-esophageal reflux disease without esophagitis; G47.33 Obstructive sleep apnea (adult) (pediatric); F41.8 Other specified anxiety disorders; Z96.612 Presence of left artificial shoulder joint; Z87.891 Personal history of nicotine dependence; Z90.710 Acquired absence of both cervix and uterus; M47.812 Spondylosis without myelopathy or radiculopathy, cervical region; M47.814 Spondylosis without myelopathy or radiculopathy, thoracic region; Z79.01 Long term (current) use of anticoagulants; Z79.899 Other long term (current) drug therapy; W18.30XA Fall on same level, unspecified, initial encounter; I49.3 Ventricular premature depolarization; I49.1 Atrial premature depolarization; I45.10 Unspecified right bundle-branch block
CPT/HCPCS: 36415; 70450; 71046; 72125; 72128; 80053; 83735; 84484; 85025; 85610; 85730; 93005; 99284; A9270; L0140